=== PATIENT | female | born 1970 | race Caucasian/White ===

== ENCOUNTER 2017-01-22 19:44 | Inpatient (IN) | payer OTHER ==
[~2017-01-22] VITALS: Ht 165.1 cm; Wt 146.5 kg
[~2017-01-22 19:44] MED LIST: ALBU2.5I NEB; HEPARIN SODIUM - SQ 10,000 UNITS/ML VIAL SQ SCH; MACR100C PO; MOTR200T PO; OMEP20CA5 PO; PROM25TA5 PO; [UNRECOGNIZED DRUG - CODE] PO
[2017-01-22 19:47] VITALS: BP 123/79; PULSE 102; RESP 20; TEMP 98.2; O2SAT 96
[2017-01-22 20:00] VITALS: BP 152/98; PULSE 99; RESP 22; O2SAT 98
[2017-01-22] MEDS ORDERED: SODIUM CHLOR 0.9% 1000 ML INJ 1,000 ML IV SCH (20:04)
[2017-01-22] MEDS ORDERED: PRIL20TA2 PO (20:05)
[2017-01-22] MEDS ORDERED: METF1000 PO (20:05)
[2017-01-22] MEDS ORDERED: METR250 PO (20:07)
[2017-01-22] MEDS ORDERED: CIPR250T52 PO (20:07)
[2017-01-22] MEDS ORDERED: advil PO (20:08)
[2017-01-22] MEDS ORDERED: HYDROmorphone HCL PF 1 MG/ML VIAL IV PUSH ONE (20:15)
[2017-01-22] MEDS ORDERED: ONDANSETRON HCL 4 MG/2 ML VIAL IVP ONE (20:15)
[2017-01-22] MEDS ORDERED: MORPHINE SULFATE 4 MG/ML INJ IV PUSH ONE (20:15)
[2017-01-22] MEDS ORDERED: SODIUM CHLORIDE 0.9% FLUSH 10 ML FLUSH IV FLUSH PRN ×2 (20:15→23:45)
--- NOTE | 2017-01-22 20:16 | PD ---
HPI Chief Complaint: Abdominal Pain Time Seen by Provider: 20:04 Travel History International Travel<30 days: No Contact w/Intl Traveler<30days: No Traveled to known affect area: No History of Present Illness HPI 46-year-old female with PMH of DM presents to the ED for evaluation of 1 week history of left lower quadrant abdominal pain, nausea, vomiting, loose stools. The patient was seen by her primary care Dr. Wilkinson, and diagnosed with diverticulitis. She's been compliant with Cipro and Flagyl with worsening of her symptoms. She states that when she saw Dr. Wilkinson 3 days ago her white count had risen but she was feeling better. She today she endorses history of fevers which brought her to the emergency room. She denies chest pain, shortness of breath, dysuria, back pain. PFSH Past Medical History Anemia: Yes Blood Disorders: No Cancer: No Diabetes: Yes (dmII) Patient Takes Glucophage: Yes Diminished Hearing: No Diverticulitis: Yes (recently diag) Endocrine: No Gastrointestinal Disorders: Yes GERD: Yes Genitourinary: Yes Hypertension: Yes Immune Disorder: No Kidney Stones: Yes Musculoskeletal: No Neurologic: No Psychiatric: No Reproductive: No Respiratory: No Tetanus Vaccination: > 5 Years Influenza Vaccination: No ?: Not : 2 Para: 2 Past Surgical History Abdominal Surgery: Yes (GALLBLADDER REMOVED) AICD: No Cardiac Surgery: No Cholecystectomy: Yes (03/31) Genitourinary Surgery: Yes ([facility] [facility]) Pacemaker: No Thoracic Surgery: No Tonsillectomy: Yes Social History Alcohol Use: Yes (OCCASSIONALLY) Tobacco Use: Yes (1/2PACK A WEEK) Substance Use: No Allergies-Medications (Allergen,Severity, Reaction): Coded Allergies: No Known Allergies (Verified Allergy, Severe, 09/28/15) Reported Meds & Prescriptions Reported Meds & Active Scripts Active Reported [advil] 800 Mg PO BID Flagyl (Metronidazole) 250 Mg Tab 500 Mg PO TID Cipro (Ciprofloxacin HCl) 250 Mg Tab 500 Mg PO BID Prilosec (Omeprazole Magnesium) 20 Mg Tab 20 Mg PO DAILY Metformin (Metformin HCl) 1,000 Mg Tab 1,000 Mg PO BID With a meal Review of Systems Except as stated in HPI: all other systems reviewed are Neg Physical Exam Narrative GENERAL: Obese white female in no acute distress. SKIN: Focused skin assessment warm/dry. HEAD: Normocephalic. EYES: No scleral icterus. No injection or drainage. NECK: Supple, trachea midline. No JVD or lymphadenopathy. CARDIOVASCULAR: Regular rate and rhythm without murmurs, gallops, or rubs. RESPIRATORY: Breath sounds clear and equal bilaterally. No accessory muscle use. GASTROINTESTINAL: Abdomen protuberant, tender to palpation in the left lower quadrant and left flank. Hypoactive bowel sounds. No palpable masses. MUSCULOSKELETAL: No cyanosis, or edema. BACK: Nontender without obvious deformity. + Left-sided CVA tenderness. Data Data Last Documented VS Vital Signs Date Time Temp Pulse Resp B/P (MAP) Pulse Ox O2 Delivery O2 Flow Rate FiO2 01/22/17 20:09 Room Air 01/22/17 20:00 99 22 98 01/22/17 19:47 98.2 Orders Orders Complete Blood Count With Diff (01/22/17 20:04) Comprehensive Metabolic Panel (01/22/17 20:04) Lipase (01/22/17 20:04) Lactic Acid (01/22/17 20:04) Urinalysis - C+S If Indicated (01/22/17 20:04) Ct Abd/Pel W Iv Contrast(Rout) (01/22/17 20:04) Iv Access Insert/Monitor (01/22/17 20:04) Ecg Monitoring (01/22/17 20:04) Oximetry (01/22/17 20:04) Ondansetron Inj (Zofran Inj) (01/22/17 20:15) Sodium Chlor 0.9% 1000 Ml Inj (Ns 1000 M (01/22/17 20:04) Sodium Chloride 0.9% Flush (Ns Flush) (01/22/17 20:15) Hydromorphone Pf Inj (Dilaudid Pf Inj) (01/22/17 20:15) Iohexol 350 Inj (Omnipaque 350 Inj) (01/22/17 20:38) Urine Culture (01/22/17 20:26) Piperacil-Tazo 4.5 Gm Premix (Zosyn 4.5 (01/22/17 20:55) Sodium Chlor 0.9% 1000 Ml Inj (Ns 1000 M (01/22/17 21:15) Consult Urology (01/22/17 ) Blood Culture (01/22/17 21:29) (Hub Use Only)Inp Phy Cons/Ref (01/22/17 ) Admit Order (Ed Use Only) (01/22/17 21:38) Labs Laboratory Tests Test 01/22/17 20:26 White Blood Count 19.0 TH/MM3 Red Blood Count 3.50 MIL/MM3 Hemoglobin 10.9 GM/DL Hematocrit 34.0 % Mean Corpuscular Volume 96.9 FL Mean Corpuscular Hemoglobin 31.0 PG Mean Corpuscular Hemoglobin Concent 32.0 % Red Cell Distribution Width 15.0 % Platelet Count 553 TH/MM3 Mean Platelet Volume 7.8 FL Neutrophils (%) (Auto) 78.6 % Lymphocytes (%) (Auto) 12.5 % Monocytes (%) (Auto) 6.9 % Eosinophils (%) (Auto) 1.8 % Basophils (%) (Auto) 0.2 % Neutrophils # (Auto) 14.9 TH/MM3 Lymphocytes # (Auto) 2.4 TH/MM3 Monocytes # (Auto) 1.3 TH/MM3 Eosinophils # (Auto) 0.3 TH/MM3 Basophils # (Auto) 0.0 TH/MM3 CBC Comment AUTO DIFF Differential Total Cells Counted 100 Neutrophils % (Manual) 81 % Band Neutrophils % 4 % Lymphocytes % 10 % Monocytes % 4 % Eosinophils % 1 % Neutrophils # (Manual) 16.2 TH/MM3 Differential Comment FINAL DIFF MANUAL Toxic Granulation 1+ Toxic Vacuolation PRESENT Platelet Estimate HIGH Platelet Morphology Comment NORMAL Urine Color YELLOW Urine Turbidity HAZY Urine pH 6.5 Urine Specific [place] 1.013 Urine Protein NEG mg/dL Urine Glucose (UA) NEG mg/dL Urine Ketones 10 mg/dL Urine Occult Blood MOD Urine Nitrite NEG Urine Bilirubin NEG Urine Urobilinogen LESS THAN 2.0 MG/DL Urine Leukocyte Esterase LARGE Urine RBC 8 /hpf Urine WBC 102 /hpf Urine Squamous Epithelial Cells 1 /hpf Urine Amorphous Sediment RARE Urine Bacteria RARE /hpf Microscopic Urinalysis Comment CULTURE INDICATED Blood Urea Nitrogen 4 MG/DL Creatinine 1.04 MG/DL Random Glucose 105 MG/DL Total Protein 8.0 GM/DL Albumin 2.3 GM/DL Calcium Level 8.6 MG/DL Alkaline Phosphatase 95 U/L Aspartate Amino Transf (AST/SGOT) 46 U/L Alanine Aminotransferase (ALT/SGPT) 15 U/L Total Bilirubin 0.3 MG/DL Sodium Level 133 MEQ/L Potassium Level 4.7 MEQ/L Chloride Level 100 MEQ/L Carbon Dioxide Level 23.6 MEQ/L Anion Gap 9 MEQ/L Estimat Glomerular Filtration Rate 57 ML/MIN Lactic Acid Level 1.3 mmol/L Lipase 108 U/L MDM Medical Decision Making Medical Screen Exam Complete: Yes Emergency Medical Condition: Yes Differential Diagnosis Pyelonephritis versus peritonitis versus diverticulitis versus intra-abdominal abscess versus free air versus other Narrative Course 46-year-old female with PMH of DM presents to the ED for evaluation of 1 week history of left lower quadrant abdominal pain, nausea, vomiting, loose stools. The patient was seen by her primary care Dr. Wilkinson, and diagnosed with diverticulitis. She's been compliant with Cipro and Flagyl with worsening of her symptoms. She complains of fever today. Vitals reviewed. Patient's tachycardic on presentation. Physical exam reveals an obese white female in no acute distress. She is quite uncomfortable looking and tender to palpation in the left lower quadrant as well as the left flank and positive left CVA tenderness. IV was established. Patient is administered 1 g Dilaudid, 4 mg Zofran, 1 L normal saline IV. CBC: WBC 1900 left shift. CMP: BUN 4, creatinine 1.04. Lactic acid 1.3. UA: Large leukocyte Estrace, 1 or 2 WBCs, rare bacteria. Culture pending. CT of the abdomen and pelvis: Staghorn calculus measuring 4.4x 1.9 cm. I discussed case with Dr. Stuart, on-call urologist who states he will see the patient on an outpatient basis for percutaneous nephrostomy. She meets sepsis criteria will be admitted to the medicine service. Patient is agreeable with this plan. I spoke with Dr. Wen who agrees to accept the patient. Please see medicine notes for disposition. Sepsis Criteria SIRS Criteria (2 or more): Heart rate over 90, WBC > 36958, < 4000 or > 10% bands Sepsis Criteria (SIRS+source): Infect source susp/known Criteria Outcome: Meets sepsis criteria Kelsea Martines Jan 22, 2017 20:16
[2017-01-22] MEDS ORDERED: IOHEXOL 350 MG/ML 10 ML VIAL (for RAD DIAG) IVCONTRAST ONE (20:38)
[2017-01-22 20:40] LABS: AUTOMATED NEUTROPHIL # 14.9 TH/MM3 (1.8-7.7); BASOPHIL % 0.2 % (0.0-2.0); EOSINOPHIL # 0.3 TH/MM3 (0-0.4); EOSINOPHIL % 1.8 % (0.0-4.0); HEMOGLOBIN 10.9 GM/DL (11.6-15.3); LYMPH % 12.5 % (9.0-44.0); LYMPHOCYTE # 2.4 TH/MM3 (1.0-4.8); MEAN CELL VOLUME 96.9 FL (80.0-100.0); MEAN PLATELET VOLUME 7.8 FL (7.0-11.0); MONO % 6.9 % (0.0-8.0); MONOCYTE # 1.3 TH/MM3 (0-0.9); NEUT % 78.6 % (16.0-70.0); PLATELET COUNT 553 TH/MM3 (150-450)
[2017-01-22 20:42] LABS: AMORPHOUS SEDIMENT, URINE RARE; BACTERIA, URINE RARE /hpf; BILIRUBIN, URINE NEG (NEG); BLOOD, URINE MOD (NEG); GLUCOSE,URINE NEG (NEG); KETONE, URINE 10 mg/dL (NEG); NITRITE,URINE NEG (NEG); PH, URINE 6.5 (5.0-8.5); SQUAMOUS EPITHELIAL CELL URINE 1 /hpf (0-5); URINE COLOR YELLOW (YELLW/STRAW); URINE LEUKOCYTE ESTERASE LARGE (NEG)
--- NOTE | 2017-01-22 20:54 | RADRPT ---
EXAM DATE/TIME: 01/22/2017 20:28 [facility] COMPARISON: No previous studies available for comparison. INDICATIONS : Left abdominal pain. IV CONTRAST: 96 cc Omnipaque 350 (iohexol) IV ORAL CONTRAST: No oral contrast ingested. RADIATION DOSE: 20.85 CTDIvol (mGy) MEDICAL HISTORY : Hypertension. Diverticulitis. Gastroesophageal reflux disease.Renal calculi; Diabetes type 2 SURGICAL HISTORY : Cholecystectomy. ENCOUNTER: Initial ACUITY: 3 days PAIN SCALE: 8/10 LOCATION: Left abdominal. TECHNIQUE: Volumetric scanning of the abdomen and pelvis was performed. Using automated exposure control and ad justment of the mA and/or kV according to patient size, radiation dose was kept as low as reasonably achievable to obtain optimal diagnostic quality images. DICOM format image data is available electro nically for review and comparison. FINDINGS: LOWER LUNGS: The visualized lower lungs are clear. LIVER: Homogeneous density without lesion. There is no dilation of the biliary tree. Status post cholecyste ctomy. There is mild hepatic steatosis. SPLEEN: Normal size without lesion. PANCREAS: Within normal limits. KIDNEYS: The right kidney is unremarkable. There is an adjacent simple cysts. The left kidney is enlarged with surrounding inflammatory change. There is a large area of calcification in the central collecting sy stem which appears staghorn in measures up to 4.4 x 1.9 cm. This extends into several calyces. There is moderate hydronephrosis. The ureter below this point is nondilated. ADRENAL GLANDS: Within normal limits. VASCULAR: There is no aortic aneurysm. BOWEL/MESENTERY: The stomach, small bowel, and colon demonstrate no acute abnormality. There is no free intraperitone al air or fluid. ABDOMINAL WALL: Within normal limits. RETROPERITONEUM: There is no lymphadenopathy. BLADDER: No wall thickening or mass. REPRODUCTIVE: Within normal limits. INGUINAL: There is no lymphadenopathy or hernia. MUSCULOSKELETAL: Within normal limits for patient age. CONCLUSION: 1. Staghorn calculus in the left renal collecting system with mild to moderate hydronephrosis and josiah rounding inflammatory change. The kidney is mildly enlarged. 2. Hepatic steatosis. 3. Status post cholecystectomy. Kyle Davenport MD on January 22, 2017 at 20:46 Board Certified Radiologist. This report was verified electronically.
[2017-01-22] MEDS ORDERED: PIPERACIL-TAZO 4.5 GM PREMIX 100 ML IV STA (20:55)
[2017-01-22 21:12] LABS: ALT (GPT) 15 U/L (10-53)
[2017-01-22 21:15] LABS: ALKALINE PHOSPHATASE 95 U/L (45-117); TOTAL BILIRUBIN ADULT 0.3 MG/DL (0.2-1.0)
[2017-01-22] MEDS ORDERED: SODIUM CHLOR 0.9% 1000 ML INJ 1,000 ML IV ONE (21:15)
[2017-01-22 21:17] LABS: ALBUMIN 2.3 GM/DL (3.4-5.0); AST (GOT) 46 U/L (15-37); BICARBONATE 23.6 MEQ/L (21.0-32.0); BLOOD UREA NITROGEN 4 MG/DL (7-18); CALCIUM 8.6 MG/DL (8.5-10.1); CHLORIDE 100 MEQ/L (98-107); CREATININE 1.04 MG/DL (0.50-1.00); GLOMERULAR FILTRATION RATE 57 ML/MIN (>89); GLUCOSE,RANDOM 105 MG/DL (74-106); LIPASE 108 U/L (73-393); SODIUM (NA) 133 MEQ/L (136-145)
[2017-01-22 21:25] LABS: BANDS 4 % (0-6); LYMPHOCYTES 10 % (9-44); MONOCYTES 4 % (0-8); NEUTROPHIL # MANUAL DIFF 16.2 TH/MM3 (1.8-7.7); POLYS (SEG NEUTROPHILS) 81 % (16-70)
[2017-01-22 21:26] LABS: TOXIC GRANULATION 1+ (NORMAL); TOXIC VACUOLATION PRESENT (NONE SEEN)
[2017-01-22] MEDS: HYDROmorphone HCL PF 1 MG/ML VIAL IV PUSH PRN (23:34)
[2017-01-22] MEDS ORDERED: ONDANSETRON HCL 4 MG/2 ML VIAL IVP PRN (23:45)
[2017-01-22] MEDS ORDERED: MAGNESIUM HYDROXIDE SUSP 30 ML CUP PO PRN (23:45)
[2017-01-22] MEDS ORDERED: ACETAMINOPHEN 325 MG TAB PO PRN (23:45)
[2017-01-22] MEDS ORDERED: SENNOSIDES 8.6 MG TAB PO PRN (23:45)
[2017-01-22] MEDS ORDERED: BISACODYL 10 MG SUPP RECTAL PRN (23:45)
[2017-01-22] MEDS ORDERED: LACTULOSE SYRUP 20 GM/30 ML CUP PO PRN (23:45)
[2017-01-22] MEDS ORDERED: NALOXONE HCL 0.4 MG/ML AMP IV PUSH PRN (23:45)
[2017-01-23] MEDS ORDERED: DEXTROSE 50% IN WATER 50 ML VIAL(D50) IV PUSH PRN
[2017-01-23] MEDS ORDERED: GLUCAGON 1 MG/ML VIAL OTHER PRN
--- NOTE | 2017-01-23 00:01 | HHI.HP ---
[facility] Eduard Su, DO Admission Diagnosis urosepsis, left staghorn calculus Diagnoses: Travel History International Travel<30 Days: No Contact w/Intl Traveler <30 Da: No Traveled to Known Affected Are: No Sepsis Criteria SIRS Criteria (2 or more): Heart rate over 90, WBC > 96476, < 4000 or > 10% bands History of Present Illness 46-year-old female with past medical history significant for type 2 diabetes mellitus presents to the emergency department with a two-week history of left sided abdominal pain. Ago, the patient was seen by her PCP and diagnosed with acute diverticulitis, prescribed Cipro/Flagyl. Her pain continued to worsen and she presented to the emergency department this afternoon with intractable left-sided abdominal and flank pain. UA significant for moderate blood, large leukocyte esterase and white blood cells. White blood cell count was 19 and the patient was tachycardic. CT of the abdomen and pelvis showed a staghorn calculus in the left renal collecting system with mild to moderate hydronephrosis and surrounding inflammatory change. The patient does have a history of kidney stones although her last one was approximately 10 years ago and she is status post lithotripsy. She denies fever/chills or other systemic symptoms. Review of Systems Denies fever or chills Denies blurry vision, otorrhea, rhinorrhea Denies sore throat and cough No chest pain, palpitations, shortness of breath Left-sided abdominal pain with left-sided flank pain Denies constipation/diarrhea. Endorses nausea. Denies muscle pain/weakness No rashes Past Family Social History Past Medical History Type 2 diabetes mellitus Iron deficiency anemia History of kidney stones 10 years ago Past Surgical History Cholecystectomy Uterine ablation Reported Medications Reported Meds & Active Scripts Active Reported [advil] 800 Mg PO BID Flagyl (Metronidazole) 250 Mg Tab 500 Mg PO TID Cipro (Ciprofloxacin HCl) 250 Mg Tab 500 Mg PO BID Prilosec (Omeprazole Magnesium) 20 Mg Tab 20 Mg PO DAILY Metformin (Metformin HCl) 1,000 Mg Tab 1,000 Mg PO BID With a meal Allergies: Coded Allergies: No Known Allergies (Verified Allergy, Severe, 09/28/15) Family History Mother with type 2 diabetes mellitus. Father alive and healthy. Social History Occasional alcohol. Tobacco very rarely. Denies marijuana or illicit drugs. Physical Exam Vital Signs Vital Signs Date Time Temp Pulse Resp B/P (MAP) Pulse Ox O2 Delivery O2 Flow Rate FiO2 01/22/17 20:09 Room Air 01/22/17 20:00 99 22 152/98 (116) 98 Room Air 01/22/17 19:47 98.2 102 20 123/79 (94) 96 Room Air Physical Exam GENERAL: This is a well-nourished, well-developed patient, in moderate distress. SKIN: No rashes, ecchymoses or lesions. Cool and dry. HEAD: Atraumatic. Normocephalic. No temporal or scalp tenderness. EYES: Pupils equal round and reactive. Extraocular motions intact. No scleral icterus. No injection or drainage. ENT: Nose without bleeding, purulent drainage or septal hematoma. Throat without erythema, tonsillar hypertrophy or exudate. Uvula midline. Airway patent. NECK: Trachea midline. No JVD or lymphadenopathy. Supple, nontender, no meningeal signs. CARDIOVASCULAR: Regular rate and rhythm without murmurs, gallops, or rubs. RESPIRATORY: Clear to auscultation. Breath sounds equal bilaterally. No wheezes , rales, or rhonchi. GASTROINTESTINAL: Abdomen soft, tender to palpation on the left side. No peritoneal signs. Left sided flank pain positive for CVA tenderness. MUSCULOSKELETAL: Extremities without clubbing, cyanosis, or edema. No joint tenderness, effusion, or edema noted. No calf tenderness. Negative Homans sign bilaterally. NEUROLOGICAL: Awake and alert. Cranial nerves II through XII intact. Motor and sensory grossly within normal limits. Five out of 5 muscle strength in all muscle groups. Normal speech. Laboratory Laboratory Tests Test 01/22/17 20:26 White Blood Count 19.0 Red Blood Count 3.50 Hemoglobin 10.9 Hematocrit 34.0 Mean Corpuscular Volume 96.9 Mean Corpuscular Hemoglobin 31.0 Mean Corpuscular Hemoglobin Concent 32.0 Red Cell Distribution Width 15.0 Platelet Count 553 Mean Platelet Volume 7.8 Neutrophils (%) (Auto) 78.6 Lymphocytes (%) (Auto) 12.5 Monocytes (%) (Auto) 6.9 Eosinophils (%) (Auto) 1.8 Basophils (%) (Auto) 0.2 Neutrophils # (Auto) 14.9 Lymphocytes # (Auto) 2.4 Monocytes # (Auto) 1.3 Eosinophils # (Auto) 0.3 Basophils # (Auto) 0.0 CBC Comment AUTO DIFF Differential Total Cells Counted 100 Neutrophils % (Manual) 81 Band Neutrophils % 4 Lymphocytes % 10 Monocytes % 4 Eosinophils % 1 Neutrophils # (Manual) 16.2 Differential Comment FINAL DIFF MANUAL Toxic Granulation 1+ Toxic Vacuolation PRESENT Platelet Estimate HIGH Platelet Morphology Comment NORMAL Urine Color YELLOW Urine Turbidity HAZY Urine pH 6.5 Urine Specific [place] 1.013 Urine Protein NEG Urine Glucose (UA) NEG Urine Ketones 10 Urine Occult Blood MOD Urine Nitrite NEG Urine Bilirubin NEG Urine Urobilinogen LESS THAN 2.0 Urine Leukocyte Esterase LARGE Urine RBC 8 Urine WBC 102 Urine Squamous Epithelial Cells 1 Urine Amorphous Sediment RARE Urine Bacteria RARE Microscopic Urinalysis Comment CULTURE INDICATED Blood Urea Nitrogen 4 Creatinine 1.04 Random Glucose 105 Total Protein 8.0 Albumin 2.3 Calcium Level 8.6 Alkaline Phosphatase 95 Aspartate Amino Transf (AST/SGOT) 46 Alanine Aminotransferase (ALT/SGPT) 15 Total Bilirubin 0.3 Sodium Level 133 Potassium Level 4.7 Chloride Level 100 Carbon Dioxide Level 23.6 Anion Gap 9 Estimat Glomerular Filtration Rate 57 Lactic Acid Level 1.3 Lipase 108 Date/Time Source Procedure Growth Status 01/22/17 21:51 Blood Line Aerobic Blood Culture Pending Received 01/22/17 21:51 Blood Line Anaerobic Blood Culture Pending Received 01/22/17 20:26 Urine Random Urine Urine Culture Pending Worksheet Result Diagram: 01/22/17202501/22/172025 Caprini VTE Risk Assessment Caprini VTE Risk Assessment: No/Low Risk (score <= 1) Caprini Risk Assessment Model Point Value = 1 Point Value = 2 Point Value = 3 Point Value = 5 Age 41-60 Minor surgery BMI > 25 kg/m2 Swollen legs Varicose veins or History of unexplained or recurrent spontaneous Oral contraceptives or hormone replacement Sepsis (< 1 month) Serious lung disease, including pneumonia (< 1 month) Abnormal pulmonary function Acute myocardial infarction Congestive heart failure (< 1 month) History of inflammatory bowel disease Medical patient at bed rest Age 61-74 Arthroscopic surgery Major open surgery (> 45 min) Laparoscopic surgery (> 45 min) Malignancy Confined to bed (> 72 hours) Immobilizing plaster cast Central venous access Age >= 75 History of VTE Family history of VTE Factor V Leiden Prothrombin [id number] Lupus anticoagulant Anticardiolipin antibodies Elevated serum homocysteine Heparin-induced thrombocytopenia Other congenital or acquired thrombophilia Stroke (< 1 month) Elective arthroplasty Hip, pelvis, or leg fracture Acute spinal cord injury (< 1 month) Prophylaxis Regimen Total Risk Factor Score Risk Level Prophylaxis Regimen 0-1 Low Early ambulation 2 Moderate Order ONE of the following: *Sequential Compression Device (SCD) *Heparin 5000 units SQ BID 3-4 Higher Order ONE of the following medications: *Heparin 5000 units SQ TID *Enoxaparin/Lovenox 40 mg SQ daily (WT < 150 kg, CrCl > 30 mL/min) *Enoxaparin/Lovenox 30 mg SQ daily (WT < 150 kg, CrCl > 10-29 mL/min) *Enoxaparin/Lovenox 30 mg SQ BID (WT < 150 kg, CrCl > 30 mL/min) AND/OR *Sequential Compression Device (SCD) 5 or more Highest Order ONE of the following medications: *Heparin 5000 units SQ TID (Preferred with Epidurals) *Enoxaparin/Lovenox 40 mg SQ daily (WT < 150 kg, CrCl > 30 mL/min) *Enoxaparin/Lovenox 30 mg SQ daily (WT < 150 kg, CrCl > 10-29 mL/min) *Enoxaparin/Lovenox 30 mg SQ BID (WT < 150 kg, CrCl > 30 mL/min) AND *Sequential Compression Device (SCD) Assessment and Plan Assessment and Plan 46-year-old female with type 2 diabetes mellitus presents with staghorn calculus in left renal collecting system and associated leukocytosis and UTI. 1. Staghorn calculus CT showed hydronephrosis Urology consulted, Dr. Cordova will perform outpatient percutaneous nephrostomy 2. Urinary tract infection associated with renal stone Patient with leukocytosis and tachycardia Zosyn 3.375 every 6 hours Monitor for signs of septic shock IV fluids normal saline 100 cc/hour 3. Type 2 diabetes mellitus Holding home metformin Low-dose sliding scale insulin FEN Diabetic diet Electrolytes within normal limits; continue to monitor Fluids as above SCDs Physician Certification 2 Midnight Certification Type: Admission for Inpatient Services Order for Inpatient Services The services are ordered in accordance with Medicare regulations or non- Medicare payer requirements, as applicable. In the case of services not specified as inpatient-only, they are appropriately provided as inpatient services in accordance with the 2-midnight benchmark. Estimated LOS (days): 2 2 days is the estimated time the patient will need to remain in the hospital, assuming treatment plan goals are met and no additional complications. Post-Hospital Plan: Home Zoraida Wen MD Jan 23, 2017 00:01
[2017-01-23 00:45] VITALS: BP 135/75; PULSE 89; RESP 18; TEMP 100.2; O2SAT 98
[2017-01-23] MEDS: HYDROmorphone HCL PF 1 MG/ML VIAL IV PUSH PRN ×5 (03:18→17:48)
[2017-01-23] MEDS: PIPERACIL-TAZO 3.375 GM PREMIX 50 ML IV SCH ×4 (03:21→21:07)
[2017-01-23 08:00] VITALS: BP 122/71; PULSE 84; RESP 19; TEMP 99.4; O2SAT 95
[2017-01-23] MEDS: INSULIN ASPART SUPPLEMENTAL SCALE SQ SCH ×4 (08:31→20:13)
[2017-01-23] MEDS: PANTOPRAZOLE SOD 20 MG DELAYED RELEASE TAB PO SCH (08:33)
[2017-01-23] MEDS: SODIUM CHLORIDE 0.9% FLUSH 10 ML FLUSH IV FLUSH SCH ×2 (08:33→20:14)
[2017-01-23] MEDS: DOCUSATE SODIUM 50 MG/SENNA 8.6 MG TAB PO SCH ×2 (08:33→20:14)
[2017-01-23 09:40] LABS: BASOPHIL # 0.1 TH/MM3 (0-0.2); BASOPHIL % 0.4 % (0.0-2.0); EOSINOPHIL # 0.3 TH/MM3 (0-0.4); EOSINOPHIL % 1.9 % (0.0-4.0); HEMATOCRIT 31.1 % (35.0-46.0); HEMOGLOBIN 9.8 GM/DL (11.6-15.3); LYMPH % 16.1 % (9.0-44.0); LYMPHOCYTE # 2.4 TH/MM3 (1.0-4.8); MEAN CELL VOLUME 96.9 FL (80.0-100.0); MEAN CORPUSCULAR HEMOGLOBIN 30.5 PG (27.0-34.0); MEAN CORPUSCULAR HGB CONC 31.5 % (32.0-36.0); MEAN PLATELET VOLUME 7.7 FL (7.0-11.0); MONO % 8.1 % (0.0-8.0); MONOCYTE # 1.2 TH/MM3 (0-0.9); NEUT % 73.5 % (16.0-70.0); PLATELET COUNT 508 TH/MM3 (150-450); RED BLOOD COUNT 3.21 MIL/MM3 (4.00-5.30); RED CELL DISTRIBUTION WIDTH 15.7 % (11.6-17.2)
[2017-01-23] MEDS: SODIUM CHLOR 0.9% 1000 ML INJ 1,000 ML IV SCH ×3 (10:00→20:15)
[2017-01-23 11:23] LABS: BICARBONATE 22.7 MEQ/L (21.0-32.0); CALCIUM 7.9 MG/DL (8.5-10.1); CREATININE 0.92 MG/DL (0.50-1.00)
--- NOTE | 2017-01-23 11:41 | HHI.PR ---
Subjective Remarks Patient is having persistent left flank pain. Dilaudid is helping but is not lasting for hours. No dysuria or hematuria. Objective Vitals Vital Signs Date Time Temp Pulse Resp B/P (MAP) Pulse Ox O2 Delivery O2 Flow Rate FiO2 01/23/17 08:00 99.4 84 19 122/71 (88) 95 01/23/17 00:45 100.2 89 18 135/75 (95) 98 01/22/17 20:09 Room Air 01/22/17 20:00 99 22 152/98 (116) 98 Room Air 01/22/17 19:47 98.2 102 20 123/79 (94) 96 Room Air I/O 01/22/17 01/22/17 01/22/17 01/23/17 01/23/17 01/23/17 07:00 15:00 23:00 07:00 15:00 23:00 Intake Total 2100 ml 220 ml Balance 2100 ml 220 ml Intake Oral 220 ml IV Total 2100 ml # Voids 2 Result Diagram: 01/23/1789901/23/17 09 Imaging Last Impressions Abdomen/Pelvis CT 01/22/172003 Signed Impressions: Service Date/Time: Sunday, January 22, 2017 20:28 - CONCLUSION: 1. Staghorn calculus in the left renal collecting system with mild to moderate hydronephrosis and surrounding inflammatory change. The kidney is mildly enlarged. 2. Hepatic steatosis. 3. Status post cholecystectomy. Kyle Davenport MD Objective Remarks GENERAL: Obese female in some discomfort. CARDIOVASCULAR: Normal rate and regular rhythm without murmurs, gallops, or rubs. RESPIRATORY: Good respiratory efforts. Breath sounds equal and clear to auscultation bilaterally. GASTROINTESTINAL: Abdomen soft, obese, tender to deep palpation over the left quadrant. Some CVA tenderness. MUSCULOSKELETAL: Extremities without cyanosis, or edema. NEURO: Alert & Oriented x4 to person, place, time, situation. Moves all ext x4 PSYCH: Appropriate mood and affect. A/P Assessment and Plan 46-year-old female with type 2 diabetes mellitus presents with staghorn calculus in left renal collecting system and associated leukocytosis and UTI. 1. Staghorn calculus CT showed hydronephrosis Urology consulted, Dr. Cordova Pain control. Decrease Dilaudid to every 3 hours. Continue IV fluid 2. Urinary tract infection associated with renal stone Patient with leukocytosis and tachycardia Zosyn 3.375 every 6 hours Monitor for signs of septic shock IV fluids normal saline 100 cc/hour Follow urine cultures 3. Type 2 diabetes mellitus Holding home metformin Low-dose sliding scale insulin FEN Diabetic diet Electrolytes within normal limits; continue to monitor Fluids as above Tanvi Post MD Jan 23, 2017 11:41
[2017-01-23 12:00] VITALS: BP 124/68; PULSE 78; RESP 19; TEMP 99; O2SAT 95
[2017-01-23 16:00] VITALS: BP 124/68; PULSE 84; RESP 18; TEMP 98.6; O2SAT 96
--- NOTE | 2017-01-23 17:02 | PD.CONS ---
HPI Service Urology Consult Requested By SHARRON Choudhury Reason for Consult Left renal calculus Primary Care Physician Eduard Su DO Diagnosis: History of Present Illness 46-year-old female with history nephrolithiasis approximately 10 years ago treated with shockwave lithotripsy who presented to the emergency room with a two-week history of left sided abdominal pain. Patient apparently was initially diagnosed with diverticulitis and treated with antibiotics however her pain continued to worsen as she presented to the emergency room for further evaluation. Workup in the emergency room included a CT scan of the abdomen and pelvis that demonstrated a large staghorn calculus involving the left kidney with mild to moderate hydronephrosis and perinephric inflammatory changes. She also was noted to have a low-grade temperature and elevation in the white blood cell count. Urinalysis demonstrated the presence of a large amount of white blood cells and was leukocyte esterase positive. She was admitted for further management with intravenous antibiotics, analgesic support and a urology consultation. At the time of consultation the patient reports that she was continuing to experience significant left flank pain. I reviewed the actual CT scan images and concur with the radiologist impression. Review of Systems Constitutional: COMPLAINS OF: Fever Cardiovascular: DENIES: Chest pain Gastrointestinal: COMPLAINS OF: Abdominal pain Musculoskeletal: COMPLAINS OF: Back pain (left flank) Except as stated in HPI: all other systems reviewed are Neg Past Family Social History Past Medical History Diabetes mellitus Nephrolithiasis Anemia Past Surgical History Status post cholecystectomy Status post shockwave lithotripsy Status post uterine ablation procedure Reported Medications Refer to EMR Allergies: Coded Allergies: No Known Allergies (Verified Allergy, Severe, 09/28/15) Active Ordered Medications Refer to EMR Family History Mother with history diabetes mellitus Social History Rare tobacco use Occasional alcohol use Denies illicit drug use Physical Exam Vital Signs Date Time Temp Pulse Resp B/P (MAP) Pulse Ox O2 Delivery O2 Flow Rate FiO2 01/23/17 16:00 98.6 84 18 124/68 (86) 96 01/23/17 12:00 99.0 78 19 124/68 (86) 95 01/23/17 08:00 99.4 84 19 122/71 (88) 95 01/23/17 00:45 100.2 89 18 135/75 (95) 98 01/22/17 20:09 Room Air 01/22/17 20:00 99 22 152/98 (116) 98 Room Air 01/22/17 19:47 98.2 102 20 123/79 (94) 96 Room Air Physical Exam GENERAL: This is a well-nourished, well-developed patient, in no apparent distress. SKIN: No rashes, ecchymoses or lesions. Cool and dry. HEAD: Atraumatic. Normocephalic. No temporal or scalp tenderness. EYES: Pupils equal round and reactive. Extraocular motions intact. No scleral icterus. No injection or drainage. ENT: Nose without bleeding, purulent drainage or septal hematoma. Throat without erythema, tonsillar hypertrophy or exudate. Uvula midline. Airway patent. NECK: Trachea midline. No JVD or lymphadenopathy. Supple, nontender, no meningeal signs. CARDIOVASCULAR: Regular rate and rhythm without murmurs, gallops, or rubs. RESPIRATORY: Clear to auscultation. Breath sounds equal bilaterally. No wheezes , rales, or rhonchi. GASTROINTESTINAL: Abdomen soft, non-tender, nondistended. No hepato-splenomegaly , or palpable masses. No guarding. GENITOURINARY: Moderate left CVA tenderness MUSCULOSKELETAL: Extremities without clubbing, cyanosis, or edema. No joint tenderness, effusion, or edema noted. No calf tenderness. Negative Homans sign bilaterally. NEUROLOGICAL: Awake and alert. Cranial nerves II through XII intact. Motor and sensory grossly within normal limits. Five out of 5 muscle strength in all muscle groups. Normal speech. Lab results reviewed: Yes Laboratory Tests Test 01/22/17 20:26 01/23/17 09:00 White Blood Count 19.0 15.0 Red Blood Count 3.50 3.21 Hemoglobin 10.9 9.8 Hematocrit 34.0 31.1 Mean Corpuscular Volume 96.9 96.9 Mean Corpuscular Hemoglobin 31.0 30.5 Mean Corpuscular Hemoglobin Concent 32.0 31.5 Red Cell Distribution Width 15.0 15.7 Platelet Count 553 508 Mean Platelet Volume 7.8 7.7 Neutrophils (%) (Auto) 78.6 73.5 Lymphocytes (%) (Auto) 12.5 16.1 Monocytes (%) (Auto) 6.9 8.1 Eosinophils (%) (Auto) 1.8 1.9 Basophils (%) (Auto) 0.2 0.4 Neutrophils # (Auto) 14.9 11.0 Lymphocytes # (Auto) 2.4 2.4 Monocytes # (Auto) 1.3 1.2 Eosinophils # (Auto) 0.3 0.3 Basophils # (Auto) 0.0 0.1 CBC Comment AUTO DIFF DIFF FINAL Differential Total Cells Counted 100 Neutrophils % (Manual) 81 Band Neutrophils % 4 Lymphocytes % 10 Monocytes % 4 Eosinophils % 1 Neutrophils # (Manual) 16.2 Differential Comment FINAL DIFF MANUAL Toxic Granulation 1+ Toxic Vacuolation PRESENT Platelet Estimate HIGH Platelet Morphology Comment NORMAL Urine Color YELLOW Urine Turbidity HAZY Urine pH 6.5 Urine Specific [place] 1.013 Urine Protein NEG Urine Glucose (UA) NEG Urine Ketones 10 Urine Occult Blood MOD Urine Nitrite NEG Urine Bilirubin NEG Urine Urobilinogen LESS THAN 2.0 Urine Leukocyte Esterase LARGE Urine RBC 8 Urine WBC 102 Urine Squamous Epithelial Cells 1 Urine Amorphous Sediment RARE Urine Bacteria RARE Microscopic Urinalysis Comment CULTURE INDICATED Blood Urea Nitrogen 4 3 Creatinine 1.04 0.92 Random Glucose 105 96 Total Protein 8.0 Albumin 2.3 Calcium Level 8.6 7.9 Alkaline Phosphatase 95 Aspartate Amino Transf (AST/SGOT) 46 Alanine Aminotransferase (ALT/SGPT) 15 Total Bilirubin 0.3 Sodium Level 133 137 Potassium Level 4.7 3.9 Chloride Level 100 103 Carbon Dioxide Level 23.6 22.7 Anion Gap 9 11 Estimat Glomerular Filtration Rate 57 66 Lactic Acid Level 1.3 Lipase 108 Date/Time Source Procedure Growth Status 01/22/17 21:51 Blood Line Aerobic Blood Culture - Preliminary NO GROWTH IN 1 DAY Resulted 01/22/17 21:51 Blood Line Anaerobic Blood Culture - Preliminary NO GROWTH IN 1 DAY Resulted 01/22/17 20:26 Urine Random Urine Urine Culture - Preliminary IMMATURE GROWTH - REINCUBATE Resulted Result Diagram: 01/23/17 0900 01/23/17 0900 Personally reviewed images: Yes Imaging Last Impressions Abdomen/Pelvis CT 01/22/172003 Signed Impressions: Service Date/Time: Sunday, January 22, 2017 20:28 - CONCLUSION: 1. Staghorn calculus in the left renal collecting system with mild to moderate hydronephrosis and surrounding inflammatory change. The kidney is mildly enlarged. 2. Hepatic steatosis. 3. Status post cholecystectomy. Kyle Davenport MD Assessment and Plan Assessment and Plan Urologic impression: #1 left staghorn renal calculus #2 left hydronephrosis secondary to staghorn calculus #3 urinary tract infection related to above Recommendations: #1 agree with present antibiotic therapy #2 interventional radiology consult for placement of left nephrostomy tube #3 will eventually require left percutaneous nephrolithotomy after urinary tract infection appropriately treated Edd Cordova MD Jan 23, 2017 17:02
[2017-01-23 20:00] VITALS: BP 133/88; PULSE 71; RESP 26; TEMP 99.3; O2SAT 97
[2017-01-23] MEDS: oxyCODONE/ACETAMINOPHEN 5 MG/325 MG TAB PO PRN (21:57)
[2017-01-24] VITALS (7 sets, daily range): BP systolic 113–127; BP diastolic 57–77; PULSE 72–94; RESP 15–22; TEMP 97.3–100; O2SAT 93–97
[2017-01-24] MEDS: HYDROmorphone HCL PF 1 MG/ML VIAL IV PUSH PRN ×3 (00:17→15:49)
[2017-01-24] MEDS: oxyCODONE/ACETAMINOPHEN 5 MG/325 MG TAB PO PRN ×5 (03:30→22:35)
[2017-01-24] MEDS: PIPERACIL-TAZO 3.375 GM PREMIX 50 ML IV SCH ×4 (03:31→21:00)
[2017-01-24 05:31] LABS: HEMATOCRIT 27.6 % (35.0-46.0); HEMOGLOBIN 8.8 GM/DL (11.6-15.3); MEAN CELL VOLUME 96.8 FL (80.0-100.0); MEAN CORPUSCULAR HEMOGLOBIN 30.9 PG (27.0-34.0); MEAN CORPUSCULAR HGB CONC 31.9 % (32.0-36.0); MEAN PLATELET VOLUME 7.8 FL (7.0-11.0); PLATELET COUNT 471 TH/MM3 (150-450); RED BLOOD COUNT 2.85 MIL/MM3 (4.00-5.30); RED CELL DISTRIBUTION WIDTH 15.7 % (11.6-17.2); WHITE BLOOD COUNT 13.1 TH/MM3 (4.0-11.0)
[2017-01-24] MEDS: SODIUM CHLOR 0.9% 1000 ML INJ 1,000 ML IV SCH ×2 (05:34→13:54)
[2017-01-24 05:51] LABS: BICARBONATE 26.3 MEQ/L (21.0-32.0); CALCIUM 7.7 MG/DL (8.5-10.1); CREATININE 0.84 MG/DL (0.50-1.00)
[2017-01-24] MEDS: INSULIN ASPART SUPPLEMENTAL SCALE SQ SCH ×4 (08:00→21:00)
[2017-01-24] MEDS: PANTOPRAZOLE SOD 20 MG DELAYED RELEASE TAB PO SCH (08:35)
[2017-01-24] MEDS: DOCUSATE SODIUM 50 MG/SENNA 8.6 MG TAB PO SCH (08:36)
[2017-01-24] MEDS: SODIUM CHLORIDE 0.9% FLUSH 10 ML FLUSH IV FLUSH SCH ×2 (08:36→21:00)
--- NOTE | 2017-01-24 10:14 | HHI.PR ---
Subjective Patient symptoms today Discussed patient with Dr. Gilman of interventional radiology. Patient has been taking ibuprofen recently however it is medically necessary to have the nephroureteral tube placed as the patient has a clinical picture of pyelonephritis from the staghorn calculus. The benefits far outweigh the risks of placing the nephroureteral tube at this time. Once the patient's infection has resolved I plan on proceeding with a percutaneous nephrolithotomy. Objective Vital Signs Vital Signs Date Time Temp Pulse Resp B/P (MAP) Pulse Ox O2 Delivery O2 Flow Rate FiO2 01/24/17 08:00 99.1 87 19 127/57 (80) 97 01/24/17 04:37 18 01/24/17 00:55 20 01/24/17 00:00 100.0 76 22 123/67 (85) 93 01/23/17 20:00 99.3 71 26 133/88 (103) 97 01/23/17 16:00 98.6 84 18 124/68 (86) 96 01/23/17 12:00 99.0 78 19 124/68 (86) 95 Intake & Output 01/24/17 01/24/17 07:00 19:00 Intake Total 240 ml Balance 240 ml Intake Oral 240 ml # Voids 5 # Bowel Movements 0 Result Diagram: 01/24/17 0455 01/24/17 0455 Medications and IVs Current Medications Medications (Trade) Dose Ordered Sig/Camilla Route Start Time Stop Time Status Last Admin (NS Flush) 2 ml UNSCH PRN IV FLUSH 01/22/17 20:15 (Dilaudid Pf Inj) 1 mg Q4H PRN IV PUSH 01/22/17 23:30 01/24/17 00:17 Sodium Chloride 1,000 ml @ 100 mls/hr Q10H IV 01/23/17 00:00 01/23/17 20:15 (NS Flush) 2 ml UNSCH PRN IV FLUSH 01/22/17 23:45 (NS Flush) 2 ml BID IV FLUSH 01/23/17 09:00 (Tylenol) 650 mg Q4H PRN PO 01/22/17 23:45 (Zofran Inj) 4 mg Q6H PRN IVP 01/22/17 23:45 (Narcan Inj) 0.4 mg UNSCH PRN IV PUSH 01/22/17 23:45 (Milk Of Magnesia Liq) 30 ml Q12H PRN PO 01/22/17 23:45 (Senokot) 17.2 mg Q12H PRN PO 01/22/17 23:45 (Dulcolax Supp) 10 mg DAILY PRN RECTAL 01/22/17 23:45 (Lactulose Liq) 30 ml DAILY PRN PO 01/22/17 23:45 Piperacillin Sod/ Tazobactam Sod 50 ml @ 100 mls/hr Q6H IV 01/23/17 03:00 01/24/17 08:36 (Protonix) 20 mg DAILY PO 01/23/17 09:00 01/24/17 08:35 (D50w (Vial) Inj) 50 ml UNSCH PRN IV PUSH 01/23/17 00:00 (Glucagon Inj) 1 mg UNSCH PRN OTHER 01/23/17 00:00 (NovoLOG SUPPLEMENTAL SCALE) 1 ACHS SLIDING SCALE SQ 01/23/17 08:00 (Percocet 5-325 Mg) 1 tab Q4H PRN PO 01/23/17 21:30 01/24/17 08:35 Assessment and Plan Assessment and Plan Urologic impression: #1 left staghorn renal calculus #2 left hydronephrosis secondary to staghorn calculus #3 urinary tract infection related to above Recommendations: #1 agree with present antibiotic therapy #2 interventional radiology consult for placement of left nephrostomy tube #3 will eventually require left percutaneous nephrolithotomy after urinary tract infection appropriately treated Edd Cordova MD Jan 24, 2017 10:14
[2017-01-24] MEDS ORDERED: MIDAZOLAM HCL 5 MG/5 ML VIAL ONE (11:05)
[2017-01-24 11:23] LABS: INTERNATIONAL NORMALIZED RATIO 1.2 RATIO; PROTHROMBIN TIME - PATIENT 13.7 SEC (9.8-11.6)
[2017-01-24] MEDS ORDERED: LEVOFLOXACIN 500 MG PREMIX INJ 100 ML IV ONE (11:51)
[2017-01-24] MEDS ORDERED: MIDAZOLAM HCL 2 MG/2 ML VIAL ONE (11:52)
[2017-01-24] MEDS ORDERED: HYDROmorphone HCL PF 2 MG/ML VIAL ONE (11:59)
[2017-01-24] MEDS ORDERED: IOHEXOL 350 MG/ML 50 ML BTL (for RAD DIAG) OTHER ONE (12:47)
--- NOTE | 2017-01-24 14:26 | HHI.PR ---
Subjective Remarks Patient reports abdominal pain. Not out of bed yet. S/P nephrostomy tube by IR on the left. Objective Vitals Vital Signs Date Time Temp Pulse Resp B/P (MAP) Pulse Ox O2 Delivery O2 Flow Rate FiO2 01/24/17 13:00 72 16 115/72 (86) 96 01/24/17 12:40 98.1 86 19 119/77 (91) 97 01/24/17 10:44 82 16 124/63 (83) 93 01/24/17 08:00 99.1 87 19 127/57 (80) 97 01/24/17 04:37 18 01/24/17 00:55 20 01/24/17 00:00 100.0 76 22 123/67 (85) 93 01/23/17 20:00 99.3 71 26 133/88 (103) 97 01/23/17 16:00 98.6 84 18 124/68 (86) 96 I/O 01/23/17 01/23/17 01/23/17 01/24/17 01/24/17 01/24/17 07:00 15:00 23:00 07:00 15:00 23:00 Intake Total 220 ml 600 ml 240 ml 100 ml Balance 220 ml 600 ml 240 ml 100 ml Intake Oral 220 ml 600 ml 240 ml IV Total 100 ml # Voids 2 6 5 # Bowel Movements 3 0 Result Diagram: 01/24/17 0455 01/24/17 0455 Objective Remarks GENERAL: Obese female in some discomfort. CARDIOVASCULAR: Normal rate and regular rhythm without murmurs, gallops, or rubs. RESPIRATORY: Good respiratory efforts. Breath sounds equal and clear to auscultation bilaterally. GASTROINTESTINAL: Abdomen soft, obese, tender to deep palpation over the left quadrant. Some CVA tenderness. Left nephrostomy tube in place. MUSCULOSKELETAL: Extremities without cyanosis, or edema. NEURO: Alert & Oriented x4 to person, place, time, situation. Moves all ext x4 PSYCH: Appropriate mood and affect. A/P Assessment and Plan 46-year-old female with type 2 diabetes mellitus presents with staghorn calculus in left renal collecting system and associated leukocytosis and UTI. 1. Staghorn calculus CT showed hydronephrosis Urology following, Dr. Cordova. S/P Nephrostomy tube placement today. DW Dr. Scaglia. He plans for left percutaneous nephrolithotomy in about 10 days. Pain control. Start Percocet. Dilaudid for breakthrough. Continue IV fluid 2. Urinary tract infection associated with renal stone Patient with leukocytosis and tachycardia Zosyn 3.375 every 6 hours Monitor for signs of septic shock IV fluids normal saline 100 cc/hour Follow urine cultures 3. Type 2 diabetes mellitus Holding home metformin Low-dose sliding scale insulin FEN Diabetic diet Electrolytes within normal limits; continue to monitor Fluids as above SCDs Discharge Planning Plan to DC tomorrow if pain is controlled on oral medications. Tanvi Lawrence MD Jan 24, 2017 14:26
[2017-01-24] MEDS ORDERED: LORazepam 0.5 MG TAB PO PRN (14:30)
[2017-01-25] VITALS: BP 118/65; PULSE 94; RESP 17; TEMP 99; O2SAT 92
[2017-01-25] MEDS: HYDROmorphone HCL PF 1 MG/ML VIAL IV PUSH PRN ×6 (00:25→21:33)
[2017-01-25] MEDS: SODIUM CHLOR 0.9% 1000 ML INJ 1,000 ML IV SCH ×3 (02:00→22:55)
[2017-01-25] MEDS: oxyCODONE/ACETAMINOPHEN 5 MG/325 MG TAB PO PRN ×5 (02:37→20:06)
[2017-01-25 04:00] VITALS: BP 113/58; PULSE 89; RESP 16; TEMP 99.5; O2SAT 92
[2017-01-25] MEDS: PIPERACIL-TAZO 3.375 GM PREMIX 50 ML IV SCH ×4 (04:42→20:02)
[2017-01-25 08:00] VITALS: BP 123/63; PULSE 90; RESP 20; TEMP 98.6; O2SAT 95
[2017-01-25] MEDS: INSULIN ASPART SUPPLEMENTAL SCALE SQ SCH ×4 (08:00→21:00)
[2017-01-25] MEDS: SODIUM CHLORIDE 0.9% FLUSH 10 ML FLUSH IV FLUSH SCH ×2 (08:42→21:00)
[2017-01-25] MEDS: PANTOPRAZOLE SOD 20 MG DELAYED RELEASE TAB PO SCH (08:43)
[2017-01-25] MEDS ORDERED: PNEUMOCOCCAL POLYVALENT INJ 25 MCG/0.5 ML SYR IM ONE (10:00)
[2017-01-25] MEDS ORDERED: INFLUENZA VIRUS VACCINE (QUADRIVALENT) 0.5 ML SYR IM ONE (10:00)
[2017-01-25 10:04] LABS: HEMATOCRIT 29.8 % (35.0-46.0); HEMOGLOBIN 9.3 GM/DL (11.6-15.3); MEAN CELL VOLUME 97.2 FL (80.0-100.0); MEAN CORPUSCULAR HEMOGLOBIN 30.4 PG (27.0-34.0); MEAN CORPUSCULAR HGB CONC 31.3 % (32.0-36.0); MEAN PLATELET VOLUME 7.6 FL (7.0-11.0); PLATELET COUNT 511 TH/MM3 (150-450); RED BLOOD COUNT 3.07 MIL/MM3 (4.00-5.30); RED CELL DISTRIBUTION WIDTH 15.3 % (11.6-17.2); WHITE BLOOD COUNT 21.4 TH/MM3 (4.0-11.0)
[2017-01-25 10:38] LABS: BICARBONATE 22.7 MEQ/L (21.0-32.0); CREATININE 0.83 MG/DL (0.50-1.00)
--- NOTE | 2017-01-25 11:40 | HHI.PR ---
Subjective Remarks Discussed with RN. Patient is having plenty of output from the nephrostomy tube. However she is not been able to urinate. She reports the urge to urinate but is only having drops. Objective Vitals Vital Signs Date Time Temp Pulse Resp B/P (MAP) Pulse Ox O2 Delivery O2 Flow Rate FiO2 01/25/17 08:00 98.6 90 20 123/63 (83) 95 01/25/17 04:00 99.5 89 16 113/58 (76) 92 01/25/17 03:37 18 01/25/17 00:55 18 01/25/17 00:00 99.0 94 17 118/65 (82) 92 01/24/17 20:00 99.2 94 17 114/63 (80) 93 01/24/17 16:00 97.3 75 15 113/69 (84) 97 01/24/17 13:00 72 16 115/72 (86) 96 01/24/17 12:40 98.1 86 19 119/77 (91) 97 I/O 01/24/17 01/24/17 01/24/17 01/25/17 01/25/17 01/25/17 07:00 15:00 23:00 07:00 15:00 23:00 Intake Total 240 ml 150 ml 60 ml 360 ml Output Total 560 ml 310 ml 150 ml Balance 240 ml 150 ml -500 ml 50 ml -150 ml Intake Oral 240 ml 60 ml 360 ml IV Total 150 ml Output Drainage Total 560 ml 310 ml 150 ml Bladder Scan Volume Amount 71 ml # Voids 5 3 0 # Bowel Movements 0 0 Result Diagram: 01/25/1735 01/25/17934 Objective Remarks GENERAL: Obese female in some discomfort. CARDIOVASCULAR: Normal rate and regular rhythm without murmurs, gallops, or rubs. RESPIRATORY: Good respiratory efforts. Breath sounds equal and clear to auscultation bilaterally. GASTROINTESTINAL: Abdomen soft, obese, tender to deep palpation over the left quadrant. Some CVA tenderness. Left nephrostomy tube in place. MUSCULOSKELETAL: Extremities without cyanosis, or edema. NEURO: Alert & Oriented x4 to person, place, time, situation. Moves all ext x4 PSYCH: Appropriate mood and affect. A/P Assessment and Plan 46-year-old female with type 2 diabetes mellitus presents with staghorn calculus in left renal collecting system and associated leukocytosis and UTI. 1. Staghorn calculus CT showed hydronephrosis Urology following, Dr. Cordova. S/P Nephrostomy tube placement today. He plans for left percutaneous nephrolithotomy in about 10 days. Overnight, the patient has not been able to urinate. Urostomy output is adequate. Urology has been made aware and a Reynoso catheter has been ordered. - Obtain renal and bladder ultrasound. Pain control. Percocet. Dilaudid for breakthrough. Continue IV fluid Monitor output. 2. Urinary tract infection associated with renal stone Patient with leukocytosis and tachycardia Zosyn 3.375 every 6 hours Monitor for signs of septic shock IV fluids normal saline 100 cc/hour Urine cultures with probable contaminate. However leukocytosis is persisting. Leukocytosis could be reactive. We'll continue IV antibiotics for another day and reassess tomorrow. 3. Type 2 diabetes mellitus Holding home metformin Low-dose sliding scale insulin FEN Diabetic diet Electrolytes within normal limits; continue to monitor Fluids as above SCDs Discharge Planning Pending clinical improvement Tanvi Lawrence MD Jan 25, 2017 11:39
[2017-01-25 12:00] VITALS: BP 117/66; PULSE 88; RESP 16; TEMP 98.8; O2SAT 92
--- NOTE | 2017-01-25 15:45 | RADRPT ---
EXAM DATE/TIME: 01/25/2017 14:54 [facility] COMPARISON: No previous studies available for comparison. INDICATIONS : Bladder retention. MEDICAL HISTORY : Gastroesophageal reflux disease. Renal calculi. Hypertension. Diverticulitis. Diabetes, type 2. Anemi a. SURGICAL HISTORY : Tonsillectomy. Cholecystectomy. Renal stent. Left renal nephrostomy tube placement. ENCOUNTER: Initial ACUITY: 3 days PAIN SCORE: 6/10 LOCATION: Bilateral flank MEASUREMENTS: RIGHT KIDNEY: 13.0 x 6.4 x 7.8 cm LEFT KIDNEY: 13.9 x 8.5 x 9.2 cm FINDINGS: RIGHT KIDNEY: Renal cortex is normal in thickness and echotexture. No hydronephrosis, stone, or mass. LEFT KIDNEY: Renal cortex is normal in thickness and echotexture. No hydronephrosis, stone, or mass. Left nephros cristino tube present. BLADDER: Within normal limits given the degree of distension. CONCLUSION: No hydronephrosis or other acute abnormality demonstrated. Left percutaneous nephrostomy tube present . Nondistended urinary bladder. Juan Tamayo MD on January 25, 2017 at 15:41 Board Certified Radiologist. This report was verified electronically.
[2017-01-25 16:00] VITALS: BP 118/66; PULSE 83; RESP 18; TEMP 99.2; O2SAT 94
[2017-01-25] MEDS ORDERED: TAMSULOSIN HCL 0.4 MG CAP PO ONE (16:00)
[2017-01-25 20:00] VITALS: BP 123/58; PULSE 102; RESP 20; TEMP 101.7; O2SAT 92
[2017-01-25 23:19] LABS: BACTERIA, URINE RARE /hpf; BILIRUBIN, URINE NEG (NEG); BLOOD, URINE MOD (NEG); GLUCOSE,URINE NEG (NEG); KETONE, URINE 10 mg/dL (NEG); MUCUS URINE FEW /lpf (OCC); NITRITE,URINE NEG (NEG); PH, URINE 6.5 (5.0-8.5); SQUAMOUS EPITHELIAL CELL URINE 45 /hpf (0-5); URINE COLOR LIGHT-YELLOW (YELLW/STRAW); URINE LEUKOCYTE ESTERASE LARGE (NEG); WHITE BLOOD CELL CLUMPS FEW
[2017-01-26] MEDS: oxyCODONE/ACETAMINOPHEN 5 MG/325 MG TAB PO PRN ×6 (00:27→21:52)
[2017-01-26 00:54] VITALS: BP 120/77; PULSE 118; RESP 20; TEMP 97.7; O2SAT 94
[2017-01-26] MEDS: HYDROmorphone HCL PF 1 MG/ML VIAL IV PUSH PRN ×6 (01:25→23:53)
[2017-01-26] MEDS: PIPERACIL-TAZO 3.375 GM PREMIX 50 ML IV SCH ×4 (01:25→19:43)
[2017-01-26 03:04] LABS: HEMOGLOBIN 9.4 GM/DL (11.6-15.3); MEAN CELL VOLUME 97.3 FL (80.0-100.0); MEAN CORPUSCULAR HEMOGLOBIN 30.5 PG (27.0-34.0); MEAN CORPUSCULAR HGB CONC 31.4 % (32.0-36.0); MEAN PLATELET VOLUME 7.6 FL (7.0-11.0); PLATELET COUNT 552 TH/MM3 (150-450); RED BLOOD COUNT 3.08 MIL/MM3 (4.00-5.30); RED CELL DISTRIBUTION WIDTH 15.7 % (11.6-17.2); WHITE BLOOD COUNT 17.4 TH/MM3 (4.0-11.0)
[2017-01-26 03:17] LABS: BICARBONATE 25.3 MEQ/L (21.0-32.0); CALCIUM 8.1 MG/DL (8.5-10.1); CREATININE 0.89 MG/DL (0.50-1.00)
[2017-01-26 08:00] VITALS: BP 124/72; PULSE 88; RESP 18; TEMP 97.6; O2SAT 94
[2017-01-26] MEDS: INSULIN ASPART SUPPLEMENTAL SCALE SQ SCH ×4 (08:00→19:47)
[2017-01-26] MEDS: SODIUM CHLORIDE 0.9% FLUSH 10 ML FLUSH IV FLUSH SCH ×2 (08:57→19:45)
[2017-01-26] MEDS: PANTOPRAZOLE SOD 20 MG DELAYED RELEASE TAB PO SCH (08:57)
[2017-01-26 12:00] VITALS: BP 128/72; PULSE 93; RESP 18; TEMP 97.6; O2SAT 94
[2017-01-26] MEDS: TAMSULOSIN HCL 0.4 MG CAP PO SCH (12:42)
[2017-01-26] MEDS: SODIUM CHLOR 0.9% 1000 ML INJ 1,000 ML IV SCH ×3 (12:43→23:56)
--- NOTE | 2017-01-26 14:16 | HHI.PR ---
Subjective Remarks The patient reports she is still having some urgency. Reports yesterday she was having only a couple of drops of urine, today she is having some dribbling, slightly better. Still having flank pain. Temperature 101.7 last night. Objective Vitals Vital Signs Date Time Temp Pulse Resp B/P (MAP) Pulse Ox O2 Delivery O2 Flow Rate FiO2 01/26/17 12:00 97.6 93 18 128/72 (90) 94 01/26/17 08:00 97.6 88 18 124/72 (89) 94 01/26/17 00:54 97.7 118 20 120/77 (91) 94 01/25/17 20:00 101.7 102 20 123/58 (79) 92 01/25/17 16:00 99.2 83 18 118/66 (83) 94 I/O 01/25/17 01/25/17 01/25/17 01/26/17 01/26/17 01/26/17 07:00 15:00 23:00 07:00 15:00 23:00 Intake Total 360 ml 2800 ml 1000 ml Output Total 310 ml 150 ml 1375 ml 700 ml Balance 50 ml -150 ml 1425 ml 300 ml Intake Oral 360 ml 1800 ml IV Total 1000 ml 1000 ml Output Urine Total 30 ml 300 ml Drainage Total 310 ml 150 ml 1345 ml 400 ml Bladder Scan Volume Amount 71 ml 160 ml # Voids 0 1 # Bowel Movements 1 1 Result Diagram: 01/26/17 0240 01/26/17 0240 Objective Remarks GENERAL: Obese female in some discomfort. CARDIOVASCULAR: Normal rate and regular rhythm without murmurs, gallops, or rubs. RESPIRATORY: Good respiratory efforts. Breath sounds equal and clear to auscultation bilaterally. GASTROINTESTINAL: Abdomen soft, obese, tender to deep palpation over the left quadrant. Some CVA tenderness. Left nephrostomy tube in place. MUSCULOSKELETAL: Extremities without cyanosis, or edema. NEURO: Alert & Oriented x4 to person, place, time, situation. Moves all ext x4 PSYCH: Appropriate mood and affect. A/P Assessment and Plan In summary, this is a 46-year-old female with type 2 diabetes mellitus presents with staghorn calculus in left renal collecting system and associated leukocytosis and UTI. The patient is status post nephrostomy tube placement. She is overall improving. However she has been having issues with urgency,? urinary Retention. Urology is following. She has had marked leukocytosis. The first urinalysis was abnormal but urine culture was negative. She has a repeat urinalysis that is also abnormal, urine cultures pending. If the patient continues to improve and urology clear her after evaluation tomorrow, she may potentially go. Need to follow up on urine cultures and fever curve. 1. Staghorn calculus CT showed hydronephrosis Urology following, Dr. Cordova. S/P Nephrostomy tube placement today. He plans for left percutaneous nephrolithotomy in about 10 days. Overnight, the patient has not been able to urinate. Urostomy output is adequate. Urology has been made aware and a Reynoso catheter has been ordered. - Obtain renal and bladder ultrasound. Pain control. Percocet. Dilaudid for breakthrough. Continue IV fluid Monitor output. 2. Urinary tract infection associated with renal stone Patient with leukocytosis and tachycardia Zosyn 3.375 every 6 hours Monitor for signs of septic shock IV fluids normal saline 100 cc/hour Urine cultures with probable contaminate. Leukocytosis slightly improved. However repeat urinalysis is abnormal. Continue IV antibiotics and follow repeat urine cultures. 3. Type 2 diabetes mellitus Holding home metformin Low-dose sliding scale insulin FEN Diabetic diet Electrolytes within normal limits; continue to monitor Fluids as above SCDs Discharge Planning Pending clinical improvement Tanvi Lawrence MD Jan 26, 2017 14:16
[2017-01-26 16:00] VITALS: BP 125/70; PULSE 90; RESP 18; TEMP 97.8; O2SAT 92
[2017-01-26 20:00] VITALS: BP 122/66; PULSE 93; RESP 16; TEMP 99.3; O2SAT 92
[2017-01-27] VITALS: BP 119/75; PULSE 113; RESP 18; TEMP 100.6; O2SAT 94
[2017-01-27] MEDS: PIPERACIL-TAZO 3.375 GM PREMIX 50 ML IV SCH ×4 (01:58→21:42)
[2017-01-27] MEDS: oxyCODONE/ACETAMINOPHEN 5 MG/325 MG TAB PO PRN ×6 (01:58→23:53)
[2017-01-27] MEDS: HYDROmorphone HCL PF 1 MG/ML VIAL IV PUSH PRN ×5 (04:08→22:45)
[2017-01-27 08:00] VITALS: BP 124/71; PULSE 85; RESP 21; TEMP 97.4; O2SAT 96
[2017-01-27] MEDS: INSULIN ASPART SUPPLEMENTAL SCALE SQ SCH ×4 (08:00→21:00)
[2017-01-27] MEDS: TAMSULOSIN HCL 0.4 MG CAP PO SCH (08:18)
[2017-01-27] MEDS: PANTOPRAZOLE SOD 20 MG DELAYED RELEASE TAB PO SCH (08:18)
[2017-01-27] MEDS: SODIUM CHLORIDE 0.9% FLUSH 10 ML FLUSH IV FLUSH SCH ×2 (08:19→19:43)
[2017-01-27 09:09] LABS: HEMATOCRIT 22.1 % (35.0-46.0); HEMOGLOBIN 7.1 GM/DL (11.6-15.3); MEAN CORPUSCULAR HEMOGLOBIN 30.7 PG (27.0-34.0); MEAN PLATELET VOLUME 7.1 FL (7.0-11.0); PLATELET COUNT 436 TH/MM3 (150-450); RED CELL DISTRIBUTION WIDTH 15.6 % (11.6-17.2); WHITE BLOOD COUNT 11.2 TH/MM3 (4.0-11.0)
--- NOTE | 2017-01-27 10:38 | HHI.PR ---
Subjective Patient symptoms today Continues to have low-grade temps. Continues complain of left flank pain and feels she is not ready to go home yet. Objective Vital Signs Vital Signs Date Time Temp Pulse Resp B/P (MAP) Pulse Ox O2 Delivery O2 Flow Rate FiO2 01/27/17 08:00 97.4 85 21 124/71 (88) 96 01/27/17 00:00 100.6 113 18 119/75 (90) 94 01/26/17 20:00 99.3 93 16 122/66 (84) 92 01/26/17 16:00 97.8 90 18 125/70 (88) 92 01/26/17 12:00 97.6 93 18 128/72 (90) 94 Intake & Output 01/27/17 01/27/17 07:00 19:00 Intake Total 2934 ml Output Total 850 ml Balance 2084 ml IV Total 2934 ml Drainage Total 850 ml # Voids 4 # Bowel Movements 2 Result Diagram: 01/27/17 0835 01/26/17 0240 Objective Remarks Left nephrostomy tube draining clear yellow urine with a small amount of sediment. No evidence of hematuria. Medications and IVs Current Medications Medications (Trade) Dose Ordered Sig/Camilla Route Start Time Stop Time Status Last Admin (NS Flush) 2 ml UNSCH PRN IV FLUSH 01/22/17 20:15 (Dilaudid Pf Inj) 1 mg Q4H PRN IV PUSH 01/22/17 23:30 01/27/17 08:15 Sodium Chloride 1,000 ml @ 100 mls/hr Q10H IV 01/23/17 00:00 01/26/17 23:56 (NS Flush) 2 ml UNSCH PRN IV FLUSH 01/22/17 23:45 (NS Flush) 2 ml BID IV FLUSH 01/23/17 09:00 01/27/17 08:19 (Tylenol) 650 mg Q4H PRN PO 01/22/17 23:45 01/25/17 21:27 (Zofran Inj) 4 mg Q6H PRN IVP 01/22/17 23:45 01/25/17 04:52 (Narcan Inj) 0.4 mg UNSCH PRN IV PUSH 01/22/17 23:45 (Milk Of Magnesia Liq) 30 ml Q12H PRN PO 01/22/17 23:45 (Senokot) 17.2 mg Q12H PRN PO 01/22/17 23:45 (Dulcolax Supp) 10 mg DAILY PRN RECTAL 01/22/17 23:45 (Lactulose Liq) 30 ml DAILY PRN PO 01/22/17 23:45 Piperacillin Sod/ Tazobactam Sod 50 ml @ 100 mls/hr Q6H IV 01/23/17 03:00 01/27/17 08:18 (Protonix) 20 mg DAILY PO 01/23/17 09:00 01/27/17 08:18 (D50w (Vial) Inj) 50 ml UNSCH PRN IV PUSH 01/23/17 00:00 (Glucagon Inj) 1 mg UNSCH PRN OTHER 01/23/17 00:00 (NovoLOG SUPPLEMENTAL SCALE) 1 ACHS SLIDING SCALE SQ 01/23/17 08:00 (Percocet 5-325 Mg) 1 tab Q4H PRN PO 01/23/17 21:30 01/27/17 06:08 (Ativan) 0.5 mg Q6H PRN PO 01/24/17 14:30 01/24/17 15:51 (Flomax) 0.4 mg DAILY PO 01/26/17 12:00 01/27/17 08:18 Assessment and Plan Assessment and Plan Urologic impression: #1 left staghorn renal calculus #2 left hydronephrosis secondary to staghorn calculus status post decompression with placement of nephroureteral tube. #3 urinary tract infection related staghorn renal calculus Recommendations: #1 continue with antibiotic therapy #2 consider discharge home when vitals and lab stable and pain adequately controlled with oral meds. Expect some degree of pain from the nephroureteral tube to be ongoing. #3 will eventually require left percutaneous nephrolithotomy after urinary tract infection appropriately treated probably within the next 7-10 days. Edd Cordova MD Jan 27, 2017 10:37
--- NOTE | 2017-01-27 11:06 | HHI.PR ---
Subjective Remarks STILL COMPLAINING OF LEFT SIDE FLANK PAIN HAD FEVERS LAST NIGHT STILL NOT CONTROLLED ON CURRENT PAIN MEDS, TAKING DILAUDID AND PERCOCETS WILL ADD MUSCLE RELAXERS DW RN AND PT AND CM. Increase Percocet to 5/325 2 TABS Q4H Objective Vitals Vital Signs Date Time Temp Pulse Resp B/P (MAP) Pulse Ox O2 Delivery O2 Flow Rate FiO2 01/27/17 08:00 97.4 85 21 124/71 (88) 96 01/27/17 00:00 100.6 113 18 119/75 (90) 94 01/26/17 20:00 99.3 93 16 122/66 (84) 92 01/26/17 16:00 97.8 90 18 125/70 (88) 92 01/26/17 12:00 97.6 93 18 128/72 (90) 94 I/O 01/26/17 01/26/17 01/26/17 01/27/17 01/27/17 01/27/17 07:00 15:00 23:00 07:00 15:00 23:00 Intake Total 1000 ml 1550 ml 1934 ml Output Total 700 ml 2225 ml 550 ml Balance 300 ml -675 ml 1384 ml Intake Oral 550 ml IV Total 1000 ml 1000 ml 1934 ml Output Urine Total 300 ml 975 ml Drainage Total 400 ml 1250 ml 550 ml # Voids 1 3 # Bowel Movements 1 1 2 Result Diagram: 01/27/17 0835 01/26/17 0240 Other Results Laboratory Tests Test 01/25/17 09:35 01/25/17 22:40 01/26/17 02:40 01/27/17 08:35 White Blood Count 21.4 TH/MM3 17.4 TH/MM3 11.2 TH/MM3 Red Blood Count 3.07 MIL/MM3 3.08 MIL/MM3 2.30 MIL/MM3 Hemoglobin 9.3 GM/DL 9.4 GM/DL 7.1 GM/DL Hematocrit 29.8 % 30.0 % 22.1 % Mean Corpuscular Volume 97.2 FL 97.3 FL 96.0 FL Mean Corpuscular Hemoglobin 30.4 PG 30.5 PG 30.7 PG Mean Corpuscular Hemoglobin Concent 31.3 % 31.4 % 32.0 % Red Cell Distribution Width 15.3 % 15.7 % 15.6 % Platelet Count 511 TH/MM3 552 TH/MM3 436 TH/MM3 Mean Platelet Volume 7.6 FL 7.6 FL 7.1 FL Blood Urea Nitrogen 3 MG/DL 2 MG/DL Creatinine 0.83 MG/DL 0.89 MG/DL Random Glucose 109 MG/DL 101 MG/DL Calcium Level 8.0 MG/DL 8.1 MG/DL Sodium Level 135 MEQ/L 137 MEQ/L Potassium Level 4.0 MEQ/L 4.1 MEQ/L Chloride Level 103 MEQ/L 104 MEQ/L Carbon Dioxide Level 22.7 MEQ/L 25.3 MEQ/L Anion Gap 9 MEQ/L 8 MEQ/L Estimat Glomerular Filtration Rate 74 ML/MIN 69 ML/MIN Urine Color LIGHT-YELLOW Urine Turbidity HAZY Urine pH 6.5 Urine Specific [place] 1.011 Urine Protein 30 mg/dL Urine Glucose (UA) NEG mg/dL Urine Ketones 10 mg/dL Urine Occult Blood MOD Urine Nitrite NEG Urine Bilirubin NEG Urine Urobilinogen LESS THAN 2.0 MG/DL Urine Leukocyte Esterase LARGE Urine RBC 20 /hpf Urine WBC 89 /hpf Urine WBC Clumps FEW Urine Squamous Epithelial Cells 45 /hpf Urine Bacteria RARE /hpf Urine Mucus FEW /lpf Urine Yeast (Budding) FEW Microscopic Urinalysis Comment CULTURE INDICATED Imaging Last Impressions Renal Ultrasound 01/25/17 1418 Signed Impressions: Service Date/Time: Wednesday, January 25, 2017 14:54 - CONCLUSION: No hydronephrosis or other acute abnormality demonstrated. Left percutaneous nephrostomy tube present. Nondistended urinary bladder. Juan Tamayo MD Abdomen/Pelvis CT 01/22/172003 Signed Impressions: Service Date/Time: Sunday, January 22, 2017 20:28 - CONCLUSION: 1. Staghorn calculus in the left renal collecting system with mild to moderate hydronephrosis and surrounding inflammatory change. The kidney is mildly enlarged. 2. Hepatic steatosis. 3. Status post cholecystectomy. Kyle Davenport MD Objective Remarks GENERAL: Awake alert and oriented talkative and cooperative SKIN: Warm and dry. Nephrostomy tube on left side HEAD: Atraumatic. Normocephalic. EYES: Pupils equal and round. No scleral icterus. No injection or drainage. Extract muscles intact ENT: No nasal bleeding or discharge. Mucous membranes pink and moist. Tongue is midline NECK: Trachea midline. No JVD. Supple CARDIOVASCULAR: Regular rate and rhythm. S1 and S2 no S3 or S4 no heave or thrill or rub or gallop RESPIRATORY: No accessory muscle use. Clear to auscultation. Breath sounds equal bilaterally. GASTROINTESTINAL: Abdomen soft, non-tender, nondistended. Hepatic and splenic margins not palpable. Left-sided nephrostomy tube in place on her back MUSCULOSKELETAL: Extremities without clubbing, cyanosis, or edema. No obvious deformities. NEUROLOGICAL: Awake and alert. No obvious cranial nerve deficits. Motor grossly within normal limits. 4 out of 5 muscle strength in the arms and legs. Normal speech. PSYCHIATRIC: Appropriate mood and affect; insight and judgment normal. Procedures LEFT PERCUTANEOUS NEPHROSTOMY TUBE PLACED ON 11-3 Medications and IVs Current Medications Morphine Sulfate (Morphine Inj) 4 mg ONCE ONCE IV PUSH ; Start 01/22/17 at 20: 15; Stop 01/22/17 at 20:16; Status Cancel Ondansetron HCl (Zofran Inj) 4 mg ONCE ONCE IVP Last administered on 20:23; Start 01/22/17 at 20:15; Stop 01/22/17 at 20:16; Status DC Sodium Chloride 1,000 ml @ 1,000 mls/hr Q1H IV Last administered on 01/22/17 20:42; Start 01/22/17 at 20:04; Stop 01/22/17 at 21:03; Status DC Sodium Chloride (NS Flush) 2 ml UNSCH PRN IV FLUSH FLUSH AFTER USING IV ACCESS ; Start 01/22/17 at 20:15 Hydromorphone HCl (Dilaudid Pf Inj) 1 mg ONCE ONCE IV PUSH Last administered on 01/22/17 20:23; Start 01/22/17 at 20:15; Stop 01/22/17 at 20:16; Status DC Iohexol (Omnipaque 350 Inj) 96 ml STK-MED ONCE IVCONTRAST Last administered on 01/22/17 20:38; Start 01/22/17 at 20:38; Stop 01/22/17 at 20:39; Status DC Piperacillin Sod/ Tazobactam Sod 100 ml @ 200 mls/hr ONCE STAT IV Last administered on 01/22/17 21:20; Start 01/22/17 at 20:55; Stop 01/22/17 at 21:24 ; Status DC Sodium Chloride 1,000 ml @ 999 mls/hr BOLUS ONCE IV Last administered on 01/22 21:20; Start 01/22/17 at 21:15; Stop 01/22/17 at 22:15; Status DC Hydromorphone HCl (Dilaudid Pf Inj) 1 mg Q4H PRN IV PUSH BREAKTHROUGH PAIN Last administered on 01/27/17 08:15; Start 01/22/17 at 23:30 Sodium Chloride 1,000 ml @ 100 mls/hr Q10H IV Last administered on 01/26/17 23:56; Start 01/23/17 at 00:00 Sodium Chloride (NS Flush) 2 ml UNSCH PRN IV FLUSH FLUSH AFTER USING IV ACCESS ; Start 01/22/17 at 23:45 Sodium Chloride (NS Flush) 2 ml BID IV FLUSH Last administered on 01/27/17 08: 19; Start 01/23/17 at 09:00 Acetaminophen (Tylenol) 650 mg Q4H PRN PO TEMP > 100.4 Last administered on 21:27; Start 01/22/17 at 23:45 Ondansetron HCl (Zofran Inj) 4 mg Q6H PRN IVP NAUSEA OR VOMITING Last administered on 01/25/17 04:52; Start 01/22/17 at 23:45 Heparin Sodium (Porcine) (Heparin Inj) 5,000 units Q8H SQ ; Start 01/22/17 at 06 :00; Stop 01/23/17 at 00:03; Status DC Naloxone HCl (Narcan Inj) 0.4 mg UNSCH PRN IV PUSH SEE LABEL COMMENTS; Start 01/22/17 at 23:45 Senna/Docusate Sodium (Emma-Colace) 1 tab BID PO ; Start 01/23/17 at 09:00; Stop 01/24/17 at 09:49; Status DC Magnesium Hydroxide (Milk Of Magnesia Liq) 30 ml Q12H PRN PO Mild constipation ; Start 01/22/17 at 23:45 Sennosides (Senokot) 17.2 mg Q12H PRN PO Moderate constipation; Start 01/22/17 at 23:45 Bisacodyl (Dulcolax Supp) 10 mg DAILY PRN RECTAL SEVERE CONSITIPATION; Start 01/22/17 at 23:45 Lactulose (Lactulose Liq) 30 ml DAILY PRN PO SEVERE CONSITIPATION; Start at 23:45 Piperacillin Sod/ Tazobactam Sod 50 ml @ 100 mls/hr Q6H IV Last administered on 01/27/17 08:18; Start 01/23/17 at 03:00 Pantoprazole Sodium (Protonix) 20 mg DAILY PO Last administered on 01/27/17 08 :18; Start 01/23/17 at 09:00 Dextrose (D50w (Vial) Inj) 50 ml UNSCH PRN IV PUSH HYPOGLYCEMIA-SEE COMMENTS; Start 01/23/17 at 00:00 Glucagon (Glucagon Inj) 1 mg UNSCH PRN OTHER HYPOGLYCEMIA-SEE COMMENTS; Start 01/23/17 at 00:00 Insulin Aspart (NovoLOG SUPPLEMENTAL SCALE) 1 ACHS SLIDING SCALE SQ ; Start at 08:00 Oxycodone/ Acetaminophen (Percocet 5-325 Mg) 1 tab Q4H PRN PO pain > 4 Last administered on 01/27/17 10:45; Start 01/23/17 at 21:30 Midazolam HCl (Versed Inj) 5 mg STK-MED ONCE .ROUTE Last administered on 11:05; Start 01/24/17 at 11:05; Stop 01/24/17 at 11:06; Status DC Fentanyl Citrate (fentaNYL INJ) 200 mcg STK-MED ONCE .ROUTE Last administered on 01/24/17 11:05; Start 01/24/17 at 11:05; Stop 01/24/17 at 11:06; Status DC Levofloxacin/ Dextrose 100 ml @ As Directed STK-MED ONCE IV Last administered on 01/24/17 11:51; Start 01/24/17 at 11:51; Stop 01/24/17 at 11:52; Status DC Fentanyl Citrate (fentaNYL INJ) 100 mcg STK-MED ONCE .ROUTE Last administered on 01/24/17 11:52; Start 01/24/17 at 11:52; Stop 01/24/17 at 11:53; Status DC Midazolam HCl (Versed Inj) 2 mg STK-MED ONCE .ROUTE Last administered on 11:52; Start 01/24/17 at 11:52; Stop 01/24/17 at 11:53; Status DC Hydromorphone HCl (Dilaudid Pf Inj) 2 mg STK-MED ONCE .ROUTE Last administered on 01/24/17 11:59; Start 01/24/17 at 11:59; Stop 01/24/17 at 12:00; Status DC Iohexol (Omnipaque 350 Inj) 45 ml STK-MED ONCE OTHER Last administered on 12:47; Start 01/24/17 at 12:47; Stop 01/24/17 at 12:48; Status DC Lorazepam (Ativan) 0.5 mg Q6H PRN PO ANXIETY Last administered on 01/24/17 15: 51; Start 01/24/17 at 14:30 Pneumococcal Polyvalent Vaccine (Pneumovax-23 Inj) 25 mcg ONCE ONCE IM ; Start 01/25/17 at 10:00; Stop 01/25/17 at 10:01; Status DC Influenza Virus Vaccine (Flu (Quadrivalent) Vaccine Inj) 0.5 ml ONCE ONCE IM ; Start 01/25/17 at 10:00; Stop 01/25/17 at 10:01; Status DC Tamsulosin HCl (Flomax) 0.4 mg ONCE ONCE PO Last administered on 01/25/17 17: 15; Start 01/25/17 at 16:00; Stop 01/25/17 at 16:08; Status DC Tamsulosin HCl (Flomax) 0.4 mg DAILY PO Last administered on 01/27/17 08:18; Start 01/26/17 at 12:00 Vascular Central Line Catheter: No A/P Assessment and Plan In summary, this is a 46-year-old female with type 2 diabetes mellitus presents with staghorn calculus in left renal collecting system and associated leukocytosis and UTI. The patient is status post nephrostomy tube placement. She is overall improving. However she has been having issues with urgency,? urinary Retention. Urology is following. She has had marked leukocytosis. The first urinalysis was abnormal but urine culture was negative. She has a repeat urinalysis that is also abnormal, urine cultures pending. If the patient continues to improve and urology clear her after evaluation tomorrow, she may potentially go. Need to follow up on urine cultures and fever curve. 1. Staghorn calculus CT showed hydronephrosis Urology following, Dr. Cordova. S/P Nephrostomy tube placement today. He plans for left percutaneous nephrolithotomy in about 10 days. Overnight, the patient has not been able to urinate. Urostomy output is adequate. Urology has been made aware and a Reynoso catheter has been ordered. - Obtain renal and bladder ultrasound. Pain control. Percocet. Dilaudid for breakthrough. Continue IV fluid Monitor output. 2. Urinary tract infection associated with renal stone Patient with leukocytosis and tachycardia Zosyn 3.375 every 6 hours Monitor for signs of septic shock IV fluids normal saline 100 cc/hour Urine cultures with probable contaminate. Leukocytosis slightly improved. However repeat urinalysis is abnormal. Continue IV antibiotics and follow repeat urine cultures. 3. Type 2 diabetes mellitus Holding home metformin Low-dose sliding scale insulin Fevers continue pain control and antibiotics FEN Diabetic diet Electrolytes within normal limits; continue to monitor Fluids as above SCDs Discharge Planning Pending better pain control and no fevers Angel Story DO Jan 27, 2017 11:06
[2017-01-27] MEDS ORDERED: LACTULOSE SYRUP 20 GM/30 ML CUP PO PRN (11:15)
[2017-01-27] MEDS ORDERED: BISACODYL 10 MG SUPP RECTAL PRN (11:15)
[2017-01-27] MEDS ORDERED: SENNOSIDES 8.6 MG TAB PO PRN (11:15)
[2017-01-27] MEDS ORDERED: ACETAMINOPHEN 325 MG TAB PO PRN ×2 (11:15)
[2017-01-27] MEDS ORDERED: SODIUM CHLORIDE 0.9% FLUSH 10 ML FLUSH IV FLUSH PRN (11:15)
[2017-01-27] MEDS ORDERED: MAGNESIUM HYDROXIDE SUSP 30 ML CUP PO PRN (11:15)
[2017-01-27] MEDS: SODIUM CHLOR 0.9% 1000 ML INJ 1,000 ML IV SCH ×2 (11:42→23:49)
[2017-01-27 12:00] VITALS: BP 123/58; PULSE 87; RESP 20; TEMP 98.2; O2SAT 97
[2017-01-27] MEDS: METHOCARBAMOL 500 MG TAB PO SCH ×2 (13:02→19:43)
[2017-01-27 13:54] LABS: MAGNESIUM 1.8 MG/DL (1.5-2.5)
[2017-01-27 14:04] LABS: FREE T4 1.44 NG/DL (0.76-1.46); PHOSPHORUS 2.3 MG/DL (2.5-4.9)
[2017-01-27 16:00] VITALS: BP 133/74; PULSE 121; RESP 20; TEMP 98.3; O2SAT 91
[2017-01-27] MEDS: DOCUSATE SODIUM 50 MG/SENNA 8.6 MG TAB PO SCH (19:44)
[2017-01-27 20:00] VITALS: BP 119/65; PULSE 94; RESP 20; TEMP 99.6; O2SAT 93
[2017-01-27] MEDS ORDERED: SODIUM CHLORIDE 0.9% FLUSH 10 ML FLUSH IV FLUSH SCH (21:00)
[2017-01-28] VITALS: BP 121/65; PULSE 85; RESP 20; TEMP 97.6; O2SAT 96
[2017-01-28] MEDS: PIPERACIL-TAZO 3.375 GM PREMIX 50 ML IV SCH ×2 (03:08→08:38)
[2017-01-28] MEDS: HYDROmorphone HCL PF 1 MG/ML VIAL IV PUSH PRN ×3 (03:08→11:27)
[2017-01-28] MEDS: oxyCODONE/ACETAMINOPHEN 5 MG/325 MG TAB PO PRN ×3 (03:55→12:46)
[2017-01-28] MEDS: METHOCARBAMOL 500 MG TAB PO SCH ×2 (04:46→14:07)
[2017-01-28 08:00] VITALS: BP 126/71; PULSE 72; RESP 16; TEMP 97.3; O2SAT 96
[2017-01-28] MEDS: INSULIN ASPART SUPPLEMENTAL SCALE SQ SCH ×2 (08:00→12:00)
[2017-01-28] MEDS: PANTOPRAZOLE SOD 20 MG DELAYED RELEASE TAB PO SCH (08:26)
[2017-01-28] MEDS: DOCUSATE SODIUM 50 MG/SENNA 8.6 MG TAB PO SCH (08:26)
[2017-01-28] MEDS: TAMSULOSIN HCL 0.4 MG CAP PO SCH (08:26)
[2017-01-28] MEDS: SODIUM CHLORIDE 0.9% FLUSH 10 ML FLUSH IV FLUSH SCH (08:26)
[2017-01-28 08:57] LABS: AUTOMATED NEUTROPHIL # 8.9 TH/MM3 (1.8-7.7); BASOPHIL # 0.1 TH/MM3 (0-0.2); BASOPHIL % 0.4 % (0.0-2.0); EOSINOPHIL # 0.4 TH/MM3 (0-0.4); EOSINOPHIL % 3.1 % (0.0-4.0); HEMATOCRIT 28.5 % (35.0-46.0); HEMOGLOBIN 8.9 GM/DL (11.6-15.3); LYMPH % 16.6 % (9.0-44.0); LYMPHOCYTE # 2.1 TH/MM3 (1.0-4.8); MEAN CORPUSCULAR HEMOGLOBIN 30.3 PG (27.0-34.0); MEAN CORPUSCULAR HGB CONC 31.2 % (32.0-36.0); MEAN PLATELET VOLUME 7.1 FL (7.0-11.0); MONO % 8.3 % (0.0-8.0); NEUT % 71.6 % (16.0-70.0); PLATELET COUNT 566 TH/MM3 (150-450); RED BLOOD COUNT 2.94 MIL/MM3 (4.00-5.30); RED CELL DISTRIBUTION WIDTH 16.4 % (11.6-17.2); WHITE BLOOD COUNT 12.4 TH/MM3 (4.0-11.0)
[2017-01-28 09:31] LABS: ALBUMIN 1.9 GM/DL (3.4-5.0); AST (GOT) 10 U/L (15-37); BICARBONATE 24.7 MEQ/L (21.0-32.0); BLOOD UREA NITROGEN 4 MG/DL (7-18); CALCIUM 8.4 MG/DL (8.5-10.1); CHLORIDE 103 MEQ/L (98-107); CREATININE 0.74 MG/DL (0.50-1.00); GLOMERULAR FILTRATION RATE 85 ML/MIN (>89); GLUCOSE,RANDOM 76 MG/DL (74-106); MAGNESIUM 1.8 MG/DL (1.5-2.5); SODIUM (NA) 136 MEQ/L (136-145)
[2017-01-28 09:44] LABS: ALKALINE PHOSPHATASE 69 U/L (45-117); ALT (GPT) 10 U/L (10-53); FREE T4 1.53 NG/DL (0.76-1.46); PHOSPHORUS 2.8 MG/DL (2.5-4.9); TOTAL BILIRUBIN ADULT 0.2 MG/DL (0.2-1.0)
[2017-01-28] MEDS: SODIUM CHLOR 0.9% 1000 ML INJ 1,000 ML IV SCH (11:27)
[2017-01-28 11:45] VITALS: BP 123/78; PULSE 90; RESP 18; TEMP 96.6; O2SAT 93
--- NOTE | 2017-01-28 11:46 | HHI.PR ---
Subjective Remarks 46-year-old female with past medical history significant for type 2 diabetes mellitus presents to the emergency department with a two-week history of left sided abdominal pain. Ago, the patient was seen by her PCP and diagnosed with acute diverticulitis, prescribed Cipro/Flagyl. Her pain continued to worsen and she presented to the emergency department this afternoon with intractable left-sided abdominal and flank pain. UA significant for moderate blood, large leukocyte esterase and white blood cells. White blood cell count was 19 and the patient was tachycardic. CT of the abdomen and pelvis showed a staghorn calculus in the left renal collecting system with mild to moderate hydronephrosis and surrounding inflammatory change. The patient does have a history of kidney stones although her last one was approximately 10 years ago and she is status post lithotripsy. She denies fever/chills or other systemic symptoms. 01-27 STILL COMPLAINING OF LEFT SIDE FLANK PAIN HAD FEVERS LAST NIGHT STILL NOT CONTROLLED ON CURRENT PAIN MEDS, TAKING DILAUDID AND PERCOCETS WILL ADD MUSCLE RELAXERS DW RN AND PT AND CM. Increase Percocet to 5/325 2 TABS Q4H 01-28 NO MORE FEVERS CAN BE DCED TO HOME TODAY FOLLOW UP WITH UROLOGY PO ANTIBIOTICS AND PO ANTIFUNGALS PO PAIN CONTROL DC TO HOME HHC FOR LEFT PCN TUBE Objective Vitals Vital Signs Date Time Temp Pulse Resp B/P (MAP) Pulse Ox O2 Delivery O2 Flow Rate FiO2 01/28/17 08:00 97.3 72 16 126/71 (89) 96 01/28/17 07:37 18 01/28/17 05:00 18 01/28/17 00:00 97.6 85 20 121/65 (83) 96 01/27/17 20:00 99.6 94 20 119/65 (83) 93 01/27/17 16:00 98.3 121 20 133/74 (93) 91 01/27/17 12:00 98.2 87 20 123/58 (79) 97 I/O 01/27/17 01/27/17 01/27/17 01/28/17 01/28/17 01/28/17 07:00 15:00 23:00 07:00 15:00 23:00 Intake Total 1934 ml 590 ml 650 ml 480 ml Output Total 550 ml 800 ml 1650 ml 200 ml Balance 1384 ml 590 ml -150 ml -1170 ml -200 ml Intake Oral 600 ml 480 ml IV Total 1934 ml 590 ml 50 ml Output Urine Total 800 ml 1650 ml Drainage Total 550 ml 200 ml # Voids 3 3 1 # Bowel Movements 2 1 1 Result Diagram: 01/28/17 0817 01/28/17 0817 Other Results Laboratory Tests Test 01/25/17 22:40 01/26/17 02:40 01/27/17 08:35 01/27/17 13:00 Urine Color LIGHT-YELLOW Urine Turbidity HAZY Urine pH 6.5 Urine Specific [place] 1.011 Urine Protein 30 mg/dL Urine Glucose (UA) NEG mg/dL Urine Ketones 10 mg/dL Urine Occult Blood MOD Urine Nitrite NEG Urine Bilirubin NEG Urine Urobilinogen LESS THAN 2.0 MG/DL Urine Leukocyte Esterase LARGE Urine RBC 20 /hpf Urine WBC 89 /hpf Urine WBC Clumps FEW Urine Squamous Epithelial Cells 45 /hpf Urine Bacteria RARE /hpf Urine Mucus FEW /lpf Urine Yeast (Budding) FEW Microscopic Urinalysis Comment CULTURE INDICATED White Blood Count 17.4 TH/MM3 11.2 TH/MM3 Red Blood Count 3.08 MIL/MM3 2.30 MIL/MM3 Hemoglobin 9.4 GM/DL 7.1 GM/DL Hematocrit 30.0 % 22.1 % Mean Corpuscular Volume 97.3 FL 96.0 FL Mean Corpuscular Hemoglobin 30.5 PG 30.7 PG Mean Corpuscular Hemoglobin Concent 31.4 % 32.0 % Red Cell Distribution Width 15.7 % 15.6 % Platelet Count 552 TH/MM3 436 TH/MM3 Mean Platelet Volume 7.6 FL 7.1 FL Blood Urea Nitrogen 2 MG/DL Creatinine 0.89 MG/DL Random Glucose 101 MG/DL Calcium Level 8.1 MG/DL Sodium Level 137 MEQ/L Potassium Level 4.1 MEQ/L Chloride Level 104 MEQ/L Carbon Dioxide Level 25.3 MEQ/L Anion Gap 8 MEQ/L Estimat Glomerular Filtration Rate 69 ML/MIN Hemoglobin A1c 6.0 % Phosphorus Level 2.3 MG/DL Magnesium Level 1.8 MG/DL Free Thyroxine 1.44 NG/DL Thyroid Stimulating Hormone 3rd Gen 1.250 uIU/ML Test 01/28/17 08:17 White Blood Count 12.4 TH/MM3 Red Blood Count 2.94 MIL/MM3 Hemoglobin 8.9 GM/DL Hematocrit 28.5 % Mean Corpuscular Volume 97.0 FL Mean Corpuscular Hemoglobin 30.3 PG Mean Corpuscular Hemoglobin Concent 31.2 % Red Cell Distribution Width 16.4 % Platelet Count 566 TH/MM3 Mean Platelet Volume 7.1 FL Neutrophils (%) (Auto) 71.6 % Lymphocytes (%) (Auto) 16.6 % Monocytes (%) (Auto) 8.3 % Eosinophils (%) (Auto) 3.1 % Basophils (%) (Auto) 0.4 % Neutrophils # (Auto) 8.9 TH/MM3 Lymphocytes # (Auto) 2.1 TH/MM3 Monocytes # (Auto) 1.0 TH/MM3 Eosinophils # (Auto) 0.4 TH/MM3 Basophils # (Auto) 0.1 TH/MM3 CBC Comment DIFF FINAL Differential Comment Blood Urea Nitrogen 4 MG/DL Creatinine 0.74 MG/DL Random Glucose 76 MG/DL Total Protein 7.0 GM/DL Albumin 1.9 GM/DL Calcium Level 8.4 MG/DL Phosphorus Level 2.8 MG/DL Magnesium Level 1.8 MG/DL Alkaline Phosphatase 69 U/L Aspartate Amino Transf (AST/SGOT) 10 U/L Alanine Aminotransferase (ALT/SGPT) 10 U/L Total Bilirubin 0.2 MG/DL Sodium Level 136 MEQ/L Potassium Level 3.2 MEQ/L Chloride Level 103 MEQ/L Carbon Dioxide Level 24.7 MEQ/L Anion Gap 8 MEQ/L Estimat Glomerular Filtration Rate 85 ML/MIN Free Thyroxine 1.53 NG/DL Imaging Last Impressions Renal Ultrasound 01/25/17 1418 Signed Impressions: Service Date/Time: Wednesday, January 25, 2017 14:54 - CONCLUSION: No hydronephrosis or other acute abnormality demonstrated. Left percutaneous nephrostomy tube present. Nondistended urinary bladder. Juan Tamayo MD Abdomen/Pelvis CT 01/22/172003 Signed Impressions: Service Date/Time: Sunday, January 22, 2017 20:28 - CONCLUSION: 1. Staghorn calculus in the left renal collecting system with mild to moderate hydronephrosis and surrounding inflammatory change. The kidney is mildly enlarged. 2. Hepatic steatosis. 3. Status post cholecystectomy. Kyle Davenport MD Objective Remarks GENERAL: Awake alert and oriented talkative and cooperative SKIN: Warm and dry. Nephrostomy tube on left side HEAD: Atraumatic. Normocephalic. EYES: Pupils equal and round. No scleral icterus. No injection or drainage. Extract muscles intact ENT: No nasal bleeding or discharge. Mucous membranes pink and moist. Tongue is midline NECK: Trachea midline. No JVD. Supple CARDIOVASCULAR: Regular rate and rhythm. S1 and S2 no S3 or S4 no heave or thrill or rub or gallop RESPIRATORY: No accessory muscle use. Clear to auscultation. Breath sounds equal bilaterally. GASTROINTESTINAL: Abdomen soft, non-tender, nondistended. Hepatic and splenic margins not palpable. Left-sided nephrostomy tube in place on her back MUSCULOSKELETAL: Extremities without clubbing, cyanosis, or edema. No obvious deformities. NEUROLOGICAL: Awake and alert. No obvious cranial nerve deficits. Motor grossly within normal limits. 4 out of 5 muscle strength in the arms and legs. Normal speech. PSYCHIATRIC: Appropriate mood and affect; insight and judgment normal. Procedures LEFT PERCUTANEOUS NEPHROSTOMY TUBE PLACED ON 11-3 Medications and IVs Current Medications Morphine Sulfate (Morphine Inj) 4 mg ONCE ONCE IV PUSH ; Start 01/22/17 at 20: 15; Stop 01/22/17 at 20:16; Status Cancel Ondansetron HCl (Zofran Inj) 4 mg ONCE ONCE IVP Last administered on 20:23; Start 01/22/17 at 20:15; Stop 01/22/17 at 20:16; Status DC Sodium Chloride 1,000 ml @ 1,000 mls/hr Q1H IV Last administered on 01/22/17 20:42; Start 01/22/17 at 20:04; Stop 01/22/17 at 21:03; Status DC Sodium Chloride (NS Flush) 2 ml UNSCH PRN IV FLUSH FLUSH AFTER USING IV ACCESS ; Start 01/22/17 at 20:15 Hydromorphone HCl (Dilaudid Pf Inj) 1 mg ONCE ONCE IV PUSH Last administered on 01/22/17 20:23; Start 01/22/17 at 20:15; Stop 01/22/17 at 20:16; Status DC Iohexol (Omnipaque 350 Inj) 96 ml STK-MED ONCE IVCONTRAST Last administered on 01/22/17 20:38; Start 01/22/17 at 20:38; Stop 01/22/17 at 20:39; Status DC Piperacillin Sod/ Tazobactam Sod 100 ml @ 200 mls/hr ONCE STAT IV Last administered on 01/22/17 21:20; Start 01/22/17 at 20:55; Stop 01/22/17 at 21:24 ; Status DC Sodium Chloride 1,000 ml @ 999 mls/hr BOLUS ONCE IV Last administered on 01/22 21:20; Start 01/22/17 at 21:15; Stop 01/22/17 at 22:15; Status DC Hydromorphone HCl (Dilaudid Pf Inj) 1 mg Q4H PRN IV PUSH BREAKTHROUGH PAIN Last administered on 01/28/17 11:27; Start 01/22/17 at 23:30 Sodium Chloride 1,000 ml @ 100 mls/hr Q10H IV Last administered on 01/28/17 11:27; Start 01/23/17 at 00:00 Sodium Chloride (NS Flush) 2 ml UNSCH PRN IV FLUSH FLUSH AFTER USING IV ACCESS ; Start 01/22/17 at 23:45 Sodium Chloride (NS Flush) 2 ml BID IV FLUSH Last administered on 01/27/17 08: 19; Start 01/23/17 at 09:00 Acetaminophen (Tylenol) 650 mg Q4H PRN PO TEMP > 100.4 Last administered on 21:27; Start 01/22/17 at 23:45; Stop 01/27/17 at 11:22; Status DC Ondansetron HCl (Zofran Inj) 4 mg Q6H PRN IVP NAUSEA OR VOMITING Last administered on 01/25/17 04:52; Start 01/22/17 at 23:45 Heparin Sodium (Porcine) (Heparin Inj) 5,000 units Q8H SQ ; Start 01/22/17 at 06 :00; Stop 01/23/17 at 00:03; Status DC Naloxone HCl (Narcan Inj) 0.4 mg UNSCH PRN IV PUSH SEE LABEL COMMENTS; Start 01/22/17 at 23:45 Senna/Docusate Sodium (Emma-Colace) 1 tab BID PO ; Start 01/23/17 at 09:00; Stop 01/24/17 at 09:49; Status DC Magnesium Hydroxide (Milk Of Magnesia Liq) 30 ml Q12H PRN PO Mild constipation ; Start 01/22/17 at 23:45; Stop 01/27/17 at 11:25; Status DC Sennosides (Senokot) 17.2 mg Q12H PRN PO Moderate constipation; Start 01/22/17 at 23:45; Stop 01/27/17 at 11:25; Status DC Bisacodyl (Dulcolax Supp) 10 mg DAILY PRN RECTAL SEVERE CONSITIPATION; Start 01/22/17 at 23:45; Stop 01/27/17 at 11:25; Status DC Lactulose (Lactulose Liq) 30 ml DAILY PRN PO SEVERE CONSITIPATION; Start at 23:45; Stop 01/27/17 at 11:25; Status DC Piperacillin Sod/ Tazobactam Sod 50 ml @ 100 mls/hr Q6H IV Last administered on 01/28/17 08:38; Start 01/23/17 at 03:00 Pantoprazole Sodium (Protonix) 20 mg DAILY PO Last administered on 01/28/17 08 :26; Start 01/23/17 at 09:00 Dextrose (D50w (Vial) Inj) 50 ml UNSCH PRN IV PUSH HYPOGLYCEMIA-SEE COMMENTS; Start 01/23/17 at 00:00 Glucagon (Glucagon Inj) 1 mg UNSCH PRN OTHER HYPOGLYCEMIA-SEE COMMENTS; Start 01/23/17 at 00:00 Insulin Aspart (NovoLOG SUPPLEMENTAL SCALE) 1 ACHS SLIDING SCALE SQ ; Start at 08:00 Oxycodone/ Acetaminophen (Percocet 5-325 Mg) 1 tab Q4H PRN PO pain > 4 Last administered on 01/27/17 10:45; Start 01/23/17 at 21:30; Stop 01/27/17 at 11:04 ; Status DC Midazolam HCl (Versed Inj) 5 mg STK-MED ONCE .ROUTE Last administered on 11:05; Start 01/24/17 at 11:05; Stop 01/24/17 at 11:06; Status DC Fentanyl Citrate (fentaNYL INJ) 200 mcg STK-MED ONCE .ROUTE Last administered on 01/24/17 11:05; Start 01/24/17 at 11:05; Stop 01/24/17 at 11:06; Status DC Levofloxacin/ Dextrose 100 ml @ As Directed STK-MED ONCE IV Last administered on 01/24/17 11:51; Start 01/24/17 at 11:51; Stop 01/24/17 at 11:52; Status DC Fentanyl Citrate (fentaNYL INJ) 100 mcg STK-MED ONCE .ROUTE Last administered on 01/24/17 11:52; Start 01/24/17 at 11:52; Stop 01/24/17 at 11:53; Status DC Midazolam HCl (Versed Inj) 2 mg STK-MED ONCE .ROUTE Last administered on 11:52; Start 01/24/17 at 11:52; Stop 01/24/17 at 11:53; Status DC Hydromorphone HCl (Dilaudid Pf Inj) 2 mg STK-MED ONCE .ROUTE Last administered on 01/24/17 11:59; Start 01/24/17 at 11:59; Stop 01/24/17 at 12:00; Status DC Iohexol (Omnipaque 350 Inj) 45 ml STK-MED ONCE OTHER Last administered on 12:47; Start 01/24/17 at 12:47; Stop 01/24/17 at 12:48; Status DC Lorazepam (Ativan) 0.5 mg Q6H PRN PO ANXIETY Last administered on 01/24/17 15: 51; Start 01/24/17 at 14:30 Pneumococcal Polyvalent Vaccine (Pneumovax-23 Inj) 25 mcg ONCE ONCE IM ; Start 01/25/17 at 10:00; Stop 01/25/17 at 10:01; Status DC Influenza Virus Vaccine (Flu (Quadrivalent) Vaccine Inj) 0.5 ml ONCE ONCE IM ; Start 01/25/17 at 10:00; Stop 01/25/17 at 10:01; Status DC Tamsulosin HCl (Flomax) 0.4 mg ONCE ONCE PO Last administered on 01/25/17 17: 15; Start 01/25/17 at 16:00; Stop 01/25/17 at 16:08; Status DC Tamsulosin HCl (Flomax) 0.4 mg DAILY PO Last administered on 01/28/17 08:26; Start 01/26/17 at 12:00 Methocarbamol (Robaxin) 1,000 mg Q8HR PO Last administered on 01/28/17 04:46; Start 01/27/17 at 14:00 Oxycodone/ Acetaminophen (Percocet 5-325 Mg) 2 tab Q4H PRN PO pain > 4 Last administered on 01/28/17 08:26; Start 01/27/17 at 13:30 Sodium Chloride (NS Flush) 2 ml UNSCH PRN IV FLUSH FLUSH AFTER USING IV ACCESS ; Start 01/27/17 at 11:15; Stop 01/27/17 at 11:22; Status DC Sodium Chloride (NS Flush) 2 ml BID IV FLUSH ; Start 01/27/17 at 21:00; Stop at 21:00; Status DC Acetaminophen (Tylenol) 650 mg Q4H PRN PO TEMP > 100.4; Start 01/27/17 at 11:15 Acetaminophen (Tylenol) 650 mg Q6H PRN PO PAIN SCALE 1 TO 2; Start 01/27/17 at 11:15 Senna/Docusate Sodium (Emma-Colace) 1 tab BID PO ; Start 01/27/17 at 21:00 Magnesium Hydroxide (Milk Of Magnesia Liq) 30 ml Q12H PRN PO Mild constipation ; Start 01/27/17 at 11:15 Sennosides (Senokot) 17.2 mg Q12H PRN PO Moderate constipation; Start 01/27/17 at 11:15 Bisacodyl (Dulcolax Supp) 10 mg DAILY PRN RECTAL SEVERE CONSITIPATION; Start 01/27/17 at 11:15 Lactulose (Lactulose Liq) 30 ml DAILY PRN PO SEVERE CONSITIPATION; Start at 11:15 Urinary Catheter: No Vascular Central Line Catheter: No A/P Assessment and Plan In summary, this is a 46-year-old female with type 2 diabetes mellitus presents with staghorn calculus in left renal collecting system and associated leukocytosis and UTI. The patient is status post nephrostomy tube placement. She is overall improving. However she has been having issues with urgency,? urinary Retention. Urology is following. She has had marked leukocytosis. The first urinalysis was abnormal but urine culture was negative. She has a repeat urinalysis that is also abnormal, urine cultures pending. If the patient continues to improve and urology clear her after evaluation tomorrow, she may potentially go. Need to follow up on urine cultures and fever curve. 1. Staghorn calculus CT showed hydronephrosis Urology following, Dr. Cordova. S/P Nephrostomy tube placement today. He plans for left percutaneous nephrolithotomy in about 10 days. Overnight, the patient has not been able to urinate. Urostomy output is adequate. Urology has been made aware and a Reynoso catheter has been ordered. - Obtain renal and bladder ultrasound. Pain control. Percocet. Dilaudid for breakthrough.-PO MEDS Continue IV fluid-DC Monitor output. 2. Urinary tract infection associated with renal stone Patient with leukocytosis and tachycardia Zosyn 3.375 every 6 hours Monitor for signs of septic shock IV fluids normal saline 100 cc/hour Urine cultures with probable contaminate. Leukocytosis slightly improved. However repeat urinalysis is abnormal. Continue IV antibiotics and follow repeat urine cultures. 3. Type 2 diabetes mellitus Holding home metformin Low-dose sliding scale insulin Fevers continue pain control and antibiotics FEN Diabetic diet Electrolytes within normal limits; continue to monitor Fluids as above SCDs HYPOKALEMIA REPLACE DC TO HOME TODAY SWITCH TO PO MEDS Discharge Planning DC TO HOME TODAY Angel Story DO Jan 28, 2017 11:46
[2017-01-28] MEDS ORDERED: TAMS5CAP PO (12:01)
[2017-01-28] MEDS ORDERED: METH500T3 PO (12:01)
[2017-01-28] MEDS ORDERED: METF1000 PO (12:01)
[2017-01-28] MEDS ORDERED: LORA-392 PO (12:01)
[2017-01-28] MEDS ORDERED: DIFL100T PO (12:01)
[2017-01-28] MEDS ORDERED: OXYC1TAB63 PO (12:01)
[2017-01-28] MEDS ORDERED: PRIL20TA2 PO (12:01)
[2017-01-28] MEDS ORDERED: SENN1TAB PO (12:01)
[2017-01-28] MEDS ORDERED: Lactulose Liq PO (12:01)
[2017-01-28] MEDS ORDERED: BISA10R RECTAL (12:01)
[2017-01-28] MEDS ORDERED: AMOX875T2 PO (12:01)
[2017-01-28] MEDS ORDERED: GNP8.6TA PO (12:01)
--- NOTE | 2017-01-28 12:04 | HHI.FF ---
Face to Face Verification Diagnosis: (1) Staghorn calculus (2) Diabetes Home Health Nursing Order: Wound care and dressing changes Home Health Aide Order: To Assist In: Bathing and personal care, aviation support equipment repairer and meal prep I have seen patient Debbi Wright on 01/28/17. My clinical findings support the need for the requested home health care services because: Limited ability to care for self Infection w/ risk of complications I certify that my clinical findings support that this patient is homebound because: Unsteady gait/balance Angel Story DO Jan 28, 2017 12:04
--- NOTE | 2017-01-28 12:04 | HHI.FF ---
Face to Face Verification Diagnosis: (1) Staghorn calculus (2) Diabetes Home Health Nursing Order: Wound care and dressing changes Home Health Aide Order: To Assist In: Bathing and personal care, business job titles and meal prep I have seen patient Debbi Wright on 01/28/17. My clinical findings support the need for the requested home health care services because: Limited ability to care for self Infection w/ risk of complications I certify that my clinical findings support that this patient is homebound because: Unsteady gait/balance Angel Story DO Jan 28, 2017 12:04
--- NOTE | 2017-01-28 12:04 | HHI.FF ---
Face to Face Verification Diagnosis: (1) Staghorn calculus (2) Diabetes Home Health Nursing Order: Wound care and dressing changes Home Health Aide Order: To Assist In: Bathing and personal care, stonecutter apprentice hand and meal prep I have seen patient Debbi Wright on 01/28/17. My clinical findings support the need for the requested home health care services because: Limited ability to care for self Infection w/ risk of complications I certify that my clinical findings support that this patient is homebound because: Unsteady gait/balance Angel Story DO Jan 28, 2017 12:04
[2017-01-28] MEDS ORDERED: LACTCHW3 CHEW (12:07)
--- NOTE | 2017-01-28 12:07 | HHI.DS ---
Discharge Summary Admission Date Jan 22, 2017 at 21:40 Discharge Date: Jan 28, 2017 Admitting Diagnosis urosepsis, left staghorn calculus (1) Diabetes ICD Code: E11.9 - Type 2 diabetes mellitus without complications Diagnosis: Secondary (2) Staghorn calculus ICD Code: N20.0 - Calculus of kidney Diagnosis: Principal (3) Hydronephrosis ICD Code: N13.30 - Unspecified hydronephrosis Diagnosis: Principal Procedures LEFT PERCUTANEOUS NEPHROSTOMY TUBE PLACED ON 01-24 Brief History - From Admission 46-year-old female with past medical history significant for type 2 diabetes mellitus presents to the emergency department with a two-week history of left sided abdominal pain. Ago, the patient was seen by her PCP and diagnosed with acute diverticulitis, prescribed Cipro/Flagyl. Her pain continued to worsen and she presented to the emergency department this afternoon with intractable left-sided abdominal and flank pain. UA significant for moderate blood, large leukocyte esterase and white blood cells. White blood cell count was 19 and the patient was tachycardic. CT of the abdomen and pelvis showed a staghorn calculus in the left renal collecting system with mild to moderate hydronephrosis and surrounding inflammatory change. The patient does have a history of kidney stones although her last one was approximately 10 years ago and she is status post lithotripsy. She denies fever/chills or other systemic symptoms. CBC/BMP: 01/28/17 0817 01/28/17 0817 Significant Findings Laboratory Tests Test 01/25/17 22:40 01/26/17 02:40 01/27/17 08:35 01/27/17 13:00 Urine Turbidity HAZY (CLEAR) Urine Protein 30 mg/dL (NEG-TRACE) Urine Ketones 10 mg/dL (NEG) Urine Occult Blood MOD (NEG) Urine Leukocyte Esterase LARGE (NEG) Urine RBC 20 /hpf (0-3) Urine WBC 89 /hpf (0-5) Urine WBC Clumps FEW (NONE) Urine Bacteria RARE /hpf (NONE) Urine Mucus FEW /lpf (OCC) Urine Yeast (Budding) FEW (NONE) White Blood Count 17.4 TH/MM3 (4.0-11.0) 11.2 TH/MM3 (4.0-11.0) Red Blood Count 3.08 MIL/MM3 (4.00-5.30) 2.30 MIL/MM3 (4.00-5.30) Hemoglobin 9.4 GM/DL (11.6-15.3) 7.1 GM/DL (11.6-15.3) Hematocrit 30.0 % (35.0-46.0) 22.1 % (35.0-46.0) Mean Corpuscular Hemoglobin Concent 31.4 % (32.0-36.0) Platelet Count 552 TH/MM3 (150-450) Blood Urea Nitrogen 2 MG/DL (7-18) Calcium Level 8.1 MG/DL (8.5-10.1) Estimat Glomerular Filtration Rate 69 ML/MIN (>89) Phosphorus Level 2.3 MG/DL (2.5-4.9) Test 01/28/17 08:17 White Blood Count 12.4 TH/MM3 (4.0-11.0) Red Blood Count 2.94 MIL/MM3 (4.00-5.30) Hemoglobin 8.9 GM/DL (11.6-15.3) Hematocrit 28.5 % (35.0-46.0) Mean Corpuscular Hemoglobin Concent 31.2 % (32.0-36.0) Platelet Count 566 TH/MM3 (150-450) Neutrophils (%) (Auto) 71.6 % (16.0-70.0) Monocytes (%) (Auto) 8.3 % (0.0-8.0) Neutrophils # (Auto) 8.9 TH/MM3 (1.8-7.7) Monocytes # (Auto) 1.0 TH/MM3 (0-0.9) Blood Urea Nitrogen 4 MG/DL (7-18) Albumin 1.9 GM/DL (3.4-5.0) Calcium Level 8.4 MG/DL (8.5-10.1) Aspartate Amino Transf (AST/SGOT) 10 U/L (15-37) Potassium Level 3.2 MEQ/L (3.5-5.1) Estimat Glomerular Filtration Rate 85 ML/MIN (>89) Free Thyroxine 1.53 NG/DL (0.76-1.46) Imaging Last Impressions Renal Ultrasound 01/25/17 1418 Signed Impressions: Service Date/Time: Wednesday, January 25, 2017 14:54 - CONCLUSION: No hydronephrosis or other acute abnormality demonstrated. Left percutaneous nephrostomy tube present. Nondistended urinary bladder. Juan Tamayo MD Abdomen/Pelvis CT 01/22/172003 Signed Impressions: Service Date/Time: Sunday, January 22, 2017 20:28 - CONCLUSION: 1. Staghorn calculus in the left renal collecting system with mild to moderate hydronephrosis and surrounding inflammatory change. The kidney is mildly enlarged. 2. Hepatic steatosis. 3. Status post cholecystectomy. Klye Davenport MD PE at Discharge GENERAL: Awake alert and oriented talkative and cooperative SKIN: Warm and dry. Nephrostomy tube on left side HEAD: Atraumatic. Normocephalic. EYES: Pupils equal and round. No scleral icterus. No injection or drainage. Extract muscles intact ENT: No nasal bleeding or discharge. Mucous membranes pink and moist. Tongue is midline NECK: Trachea midline. No JVD. Supple CARDIOVASCULAR: Regular rate and rhythm. S1 and S2 no S3 or S4 no heave or thrill or rub or gallop RESPIRATORY: No accessory muscle use. Clear to auscultation. Breath sounds equal bilaterally. GASTROINTESTINAL: Abdomen soft, non-tender, nondistended. Hepatic and splenic margins not palpable. Left-sided nephrostomy tube in place on her back MUSCULOSKELETAL: Extremities without clubbing, cyanosis, or edema. No obvious deformities. NEUROLOGICAL: Awake and alert. No obvious cranial nerve deficits. Motor grossly within normal limits. 4 out of 5 muscle strength in the arms and legs. Normal speech. PSYCHIATRIC: Appropriate mood and affect; insight and judgment normal. Hospital Course 46-year-old female with past medical history significant for type 2 diabetes mellitus presents to the emergency department with a two-week history of left sided abdominal pain. Ago, the patient was seen by her PCP and diagnosed with acute diverticulitis, prescribed Cipro/Flagyl. Her pain continued to worsen and she presented to the emergency department this afternoon with intractable left-sided abdominal and flank pain. UA significant for moderate blood, large leukocyte esterase and white blood cells. White blood cell count was 19 and the patient was tachycardic. CT of the abdomen and pelvis showed a staghorn calculus in the left renal collecting system with mild to moderate hydronephrosis and surrounding inflammatory change. The patient does have a history of kidney stones although her last one was approximately 10 years ago and she is status post lithotripsy. She denies fever/chills or other systemic symptoms. 01-27 STILL COMPLAINING OF LEFT SIDE FLANK PAIN HAD FEVERS LAST NIGHT STILL NOT CONTROLLED ON CURRENT PAIN MEDS, TAKING DILAUDID AND PERCOCETS WILL ADD MUSCLE RELAXERS DW RN AND PT AND CM. Increase Percocet to 5/325 2 TABS Q4H 01-28 NO MORE FEVERS CAN BE DCED TO HOME TODAY FOLLOW UP WITH UROLOGY PO ANTIBIOTICS AND PO ANTIFUNGALS PO PAIN CONTROL DC TO HOME HHC FOR LEFT PCN TUBE Pt Condition on Discharge: Stable Discharge Disposition: Disch w/ Home Health Serv Discharge Time: > 30 minutes Discharge Instructions DIET: Follow Instructions for: Heart Healthy Diet, Diabetic Diet Speech Therapy-Diet Recommends: Regular Activities you can perform: Shower Only-No Bath Other Activity Instructions: KEEP NEPHROSTOMY SITE CLEAN AND DRY AND DRESSED Follow up Referrals: Home Health PCP Follow-up - 1 Week with Eduard Su DO Urology - 1 Week with Edd Cordova MD New Medications: Lactobacillus Acidophilus (Lactinex) 1 Chew 1 TAB CHEW TID for Nutritional Supplement, #90 TAB 0 Refills Amoxicillin-Clavulanate (Amoxicillin-Clavulanate) 875-125 mg Tab 875 MG PO Q12HR for Infection, #28 TAB not for use in CrCl <30 mL/minute Bisacodyl Supp (Bisac-Evac Supp) 10 Mg Supp 10 MG RECTAL DAILY PRN for SEVERE CONSITIPATION, #30 SUPP Fluconazole (Diflucan) 100 Mg Tab 100 MG PO DAILY for Infection, #14 TAB Lorazepam (Ativan) 0.5 Mg Tab 0.5 MG PO Q6H PRN for ANXIETY, #60 TAB Methocarbamol (Methocarbamol) 500 Mg Tab 1000 MG PO Q8HR for Pain Management, #180 TAB Oxycodone-Acetaminophen (Oxycodone-Acetaminophen) 5-325 mg Tab 2 TAB PO Q4H PRN for pain > 4, #60 TAB Sennosides (Gnp Senna-Lax) 8.6 Mg Tab 17.2 MG PO Q12H PRN for Moderate constipation, #120 TAB Sennosides-Docusate Sodium (Senna Plus 8.6-50 mg) 8.6 Mg-50 Mg Tab 1 TAB PO BID for Constipation, #60 TAB Tamsulosin (Flomax) 0.4 Mg Cap 0.4 MG PO DAILY for Urinary Symptom Managemen, #30 CAP [Lactulose Liq] () 30 ML SYRP 30 ML PO DAILY PRN for SEVERE CONSITIPATION, #900 ML Continued Medications: Metformin (Metformin) 1,000 Mg Tab 1000 MG PO BID for Blood Sugar Management, #60 TAB 0 Refills (This prescription has been renewed) With a meal Omeprazole Magnesium (Prilosec) 20 Mg Tab 20 MG PO DAILY for Heartburn Management, #30 TAB (This prescription has been renewed) Discontinued Medications: Ciprofloxacin (Cipro) 250 Mg Tab 500 MG PO BID for Infection, TAB 0 Refills Metronidazole (Flagyl) 250 Mg Tab 500 MG PO TID for Infection, TAB 0 Refills [advil] () 800 MG PO BID Angel Story DO Jan 28, 2017 12:07
[2017-01-28] MEDS ORDERED: FLUCONAZOLE 100 MG TAB PO SCH (13:00)
[2017-01-28] MEDS ORDERED: AMOXICILLIN/CLAVULANATE K 875 MG TAB PO SCH (13:00)
[2017-01-28 16:00] VITALS: BP 129/73; PULSE 75; RESP 17; TEMP 98; O2SAT 97
--- NOTE | 2017-01-28 23:23 | RADRPT ---
EXAM DATE/TIME: 01/24/2017 10:35 [facility] COMPARISON: No previous studies available for comparison. INDICATIONS : Patient with large staghorn calculus.Urosepsis. MEDICAL HISTORY : 1. HTN 2. DM 3. Kidney stones SURGICAL HISTORY : 1. Cholecystectomy 2. uterine ablation ENCOUNTER: Initial ACUITY: 2 weeks PAIN SCORE: 5/10 LOCATION: Left flank FLUORO TIME: 14.4 minutes IMAGE SERIES: 4 SEDATION TIME: 40 minutes CONTRAST: 45 cc Omnipaque (iohexol) 350 MEDICATION(S): 1.) 7 mg midazolam (Versed) IV 2.) 2 mg hydromorphone (Dilaudid) IV 3.) 275 mcg fentanyl (Sublimaze) IV 4.) 500 mg levofloxacin (Levaquin) IV Intra-procedural antibiotics were given as prescribed above. DEVICE(S): 1.) 8 Australian 24 cm nephroureteral stent Expel PROCEDURE : 1. Ultrasound-guided puncture of the kidney. 2. Antegrade percutaneous pyelogram. 3. Percutaneous nephroureteral stent placement. 4. Conscious sedation with continuous EKG and oximetry monitoring. The risks, benefits and alternatives to the procedure were explained and verbal and written consent w as obtained. The site was prepped in sterile fashion. Full sterile technique was used, including ca p, mask, sterile gloves and gown and a large sterile sheet. Hand hygiene and 2% chlorhexidine and/or betadine/alcohol prep was utilized per protocol for cutaneous antisepsis. Sterile gel and sterile p robe cover were utilized for ultrasound guidance. The skin and subcutaneous tissues were infiltrated with local anesthetic solution. With ultrasound and fluoroscopic guidance the selected kidney was punctured and a percutaneous antegr audrey pyelogram was performed demonstrating a dilated collecting system. Serial dilatation was perform ed and the prescribed nephroureteral stent was placed with the proximal portion within the renal pelv is and the distal extent in the urinary bladder. Injection of positive contrast demonstrates good po sition of the catheter. A staghorn calculus is present in the right renal pelvis as well as in the ureteropelvic junction. Ca liectasis is present. Conscious sedation was performed with the prescribed dosages and duration as above in the presence of an independent trained radiology nurse to assist in the monitoring of the patient. EKG and oximetry remained stable throughout the procedure. The patient tolerated the procedure well and there were n o complications. The patient was sent to post anesthesia recovery in stable condition. CONCLUSION: Uncomplicated nephroureteral stent placement as above. Parminder Gilman MD on January 28, 2017 at 23:21 Board Certified Radiologist. This report was verified electronically.
== END 2017-01-28 16:16 | disposition home health service (06) | DRG 690 ==
LOC: NEPC 19:44 → NEDA 21:40 → N07A 01-23 00:43
PROVIDERS: ADMIT Hospitalist; ATTEND Hospitalist
PROC: 0T9130Z Drainage of Left Kidney with Drainage Device, Percutaneous Approach (ICD-10-PCS; principal; 2017-01-24)
DX: N13.6 Pyonephrosis (principal); Z68.43 Body mass index [BMI] 50.0-59.9, adult; I10 Essential (primary) hypertension; K57.92 Diverticulitis of intestine, part unspecified, without perforation or abscess without bleeding; E66.9 Obesity, unspecified; F17.210 Nicotine dependence, cigarettes, uncomplicated; K21.9 Gastro-esophageal reflux disease without esophagitis; E11.9 Type 2 diabetes mellitus without complications; R00.0 Tachycardia, unspecified; Z87.442 Personal history of urinary calculi; E87.6 Hypokalemia; Z79.84 Long term (current) use of oral hypoglycemic drugs
CPT/HCPCS: 50433; 74177; 76775; 76937; 80048; 80053; 81001; 82948; 83036; 83605; 83690; 83735; 84100; 84439; 84443; 85007; 85025; 85027; 85610; 85730; 87040; 87086; 87106; 96361; 96365; 96375; 99152; 99153; C1769; C1877; C1887; C1894; J1170; J1956; J2250; J2405; J2543; J3010; J7030; Q9967

== ENCOUNTER 2017-01-30 10:45 | Day surgery (SDC) | payer OTHER ==
[~2017-01-30 10:45] MED LIST changes: -ALBU2.5I NEB; +AMOX875T2 PO; +BISA10R RECTAL; +DIFL100T PO; +GNP8.6TA PO; -HEPARIN SODIUM - SQ 10,000 UNITS/ML VIAL SQ SCH; +LACTCHW3 CHEW; +LORA-392 PO; +Lactulose Liq PO; -MACR100C PO; +METF1000 PO; +METH500T3 PO; -MOTR200T PO; -OMEP20CA5 PO; +OXYC1TAB63 PO; +PRIL20TA2 PO; -PROM25TA5 PO; +SENN1TAB PO; +TAMS5CAP PO; -[UNRECOGNIZED DRUG - CODE] PO
[2017-01-30 11:01] VITALS: BP 147/105; PULSE 111; RESP 20; TEMP 98.3; O2SAT 92
[2017-02-03] MEDS ORDERED: PERC5TAB12 PO (10:52)
== END 2017-01-30 11:15 | disposition home or self-care (01) ==
LOC: HROP 10:45 → HRIP 10:49 → HROP 11:15
PROVIDERS: ATTEND Internal Medicine
DX: N13.6 Pyonephrosis (principal)

== ENCOUNTER 2017-02-18 12:36 | Observation (INO) | payer OTHER ==
[~2017-02-18] VITALS: Ht 167.6 cm; Wt 137.5 kg
[~2017-02-18 12:36] MED LIST changes: -AMOX875T2 PO; -BISA10R RECTAL; +DEXAMETHASONE SOD PHOS 4 MG/ML VIAL IV ONE; -DIFL100T PO; -GNP8.6TA PO; +IRON18TA PO; -LACTCHW3 CHEW; +LIDOCAINE HCL 1% PF 5 ML SYRINGE OTHER ONE; -Lactulose Liq PO; -METH500T3 PO; +MIDAZOLAM HCL 2 MG/2 ML VIAL IV ONE; +ONDANSETRON HCL 4 MG/2 ML VIAL IV PUSH ONE; -OXYC1TAB63 PO; +PHENYLEPH/NS 1000 MCG/10 ML SYR IV ONE; +PROPOFOL 200 MG/20 ML AMP IV ONE; +ROCURONIUM INJ 50 MG/5 ML SYRINGE IV PUSH ONE; -SENN1TAB PO; -TAMS5CAP PO; +ceFAZolin INJ 1,000 MG VIAL IV ONE; +ePHEDrine/NS 25 MG/5 ML SYR IV ONE
[2017-02-18] MEDS ORDERED: POVIDONE IODINE 5% (ANTISEPSIS KIT) 4 APPLICATIONS EACH NARE PRN (13:15)
[2017-02-18] MEDS ORDERED: METOPROLOL TARTRATE 25 MG TAB PO PRN (13:15)
[2017-02-18] MEDS ORDERED: LACTATED RINGER'S 1000 ML IV PRN (13:15)
[2017-02-18] MEDS ORDERED: CHLORHEXIDINE GLUCONATE 2 % 1 PACK (2 CLOTHS) TOPICAL PRN (13:15)
[2017-02-18] MEDS ORDERED: SODIUM CHLORID 0.9% 500 ML IV PRN (13:15)
[2017-02-18] MEDS ORDERED: FUROSEMIDE 40 MG/4 ML VIAL ONE (13:44)
[2017-02-18] MEDS ORDERED: ceFAZolin 2 GM PREMIX 50 ML IV SCH (14:00)
[2017-02-18 14:18] LABS: AUTOMATED NEUTROPHIL # 7.6 TH/MM3 (1.8-7.7); BASOPHIL % 0.3 % (0.0-2.0); EOSINOPHIL # 0.6 TH/MM3 (0-0.4); EOSINOPHIL % 5.1 % (0.0-4.0); HEMATOCRIT 22.4 % (35.0-46.0); LYMPH % 22.1 % (9.0-44.0); LYMPHOCYTE # 2.6 TH/MM3 (1.0-4.8); MEAN CELL VOLUME 89.4 FL (80.0-100.0); MEAN CORPUSCULAR HEMOGLOBIN 27.4 PG (27.0-34.0); MEAN CORPUSCULAR HGB CONC 30.7 % (32.0-36.0); MONO % 6.9 % (0.0-8.0); NEUT % 65.6 % (16.0-70.0); PLATELET COUNT 420 TH/MM3 (150-450); RED CELL DISTRIBUTION WIDTH 17.3 % (11.6-17.2); WHITE BLOOD COUNT 11.6 TH/MM3 (4.0-11.0)
[2017-02-18 14:26] LABS: HEMO FLAGS AUTO DIFF
[2017-02-18 14:28] LABS: ALT (GPT) 14 U/L (10-53); ANION GAP 8 MEQ/L (5-15); AST (GOT) 16 U/L (15-37); BICARBONATE 24.9 MEQ/L (21.0-32.0); BLOOD UREA NITROGEN 13 MG/DL (7-18); CHLORIDE 106 MEQ/L (98-107); GLOMERULAR FILTRATION RATE 79 ML/MIN (>89); POTASSIUM 4.1 MEQ/L (3.5-5.1); SODIUM (NA) 139 MEQ/L (136-145)
[2017-02-18 14:30] LABS: ALKALINE PHOSPHATASE 79 U/L (45-117); TOTAL BILIRUBIN ADULT 0.2 MG/DL (0.2-1.0)
--- NOTE | 2017-02-18 14:42 | EKG ---
Date Performed: 02/18/2017 Time Performed: 13:05:36 PTAGE: 46 years EKG: SINUS TACHYCARDIA ABNORMAL RHYTHM ECG No significant change from prior electrocardiogram. PREVIOUS TRACING : 09/28/2015 08.19 DOCTOR: Sourav Ventura Interpretating Date/Time 02/18/2017 14:40:27
[2017-02-18] MEDS ORDERED: SUGAMMADEX SODIUM 200 MG/2 ML VIAL IV PUSH ONE ×2 (15:10)
[2017-02-18 15:21] VITALS: PULSE 99
[2017-02-18 15:45] LABS: SCAN/DIFF AUTO DIFF CONFIRMED
[2017-02-18 15:46] LABS: PLATELET ESTIMATE SMEAR NORMAL (NORMAL); PLATELET MORPHOLOGY NORMAL (NORMAL)
[2017-02-18] MEDS ORDERED: *morphine SULFATE 8 MG/ML PERIprocedure ONLY ONE (16:13)
[2017-02-18] MEDS ORDERED: CISATRACURIUM BESYLATE 20 MG/10 ML VIAL ONE (16:43)
[2017-02-18 17:30] LABS: BLOOD GAS BASE EXCESS 0.8 mmol/L (-2-2); BLOOD GAS CARBOXYHEMOGLOBIN 1.8 % (0-4); BLOOD GAS HCO3 24 mmol/L (22-26); BLOOD GAS METHEMOGLOBIN 1.3 % (0-2); BLOOD GAS O2 HGB SATURATION 96 % (90-100); BLOOD GAS OXYGEN CONTENT 10.2 Vol % (12.0-20.0); BLOOD GAS PCO2 36 mmHg (38-42); BLOOD GAS PO2 193 mmHg (61-120); BLOOD GAS TOTAL HGB 7.2 G/DL (12.0-16.0); CRITICAL VALUE NO; FIO2 60 %; NUMBER OF ARTERIAL PUNCTURES 1; STAT YES; TEMP CORR TO 98.6
[2017-02-18] MEDS ORDERED: ceFAZolin 2 GM PREMIX 50 ML IV ONE (19:00)
[2017-02-18] MEDS ORDERED: IOHEXOL 350 MG/ML 50 ML BTL (for RAD DIAG) OTHER ONE (19:20)
--- NOTE | 2017-02-18 19:56 | PD.OP ---
Operative Report Date of Surgery: Feb 18, 2017 Preoperative Diagnosis: (1) Staghorn calculus Postoperative Diagnosis: (1) Staghorn calculus Procedure: Left nephrostogram, removal of left nephrostomy tube, cystoscopy, left retrograde pyelogram and left ureteral stent placement. Anesthesia: General Surgeon: Edd Cordova [employer](s): None Operation and Findings: Indication for procedure: Case of a pleasant 46-year-old female with a large left renal staghorn calculus who is status post placement of a left nephroureteral tube approximately one month ago and presents now for a left percutaneous nephrolithotomy. Operative procedure in detail: Patient was brought to the operating suite and placed under general anesthesia while still on the stretcher. She was then placed in the prone position on the OR table and all pressure points were adequately padded. She was then prepped and draped in normal sterile fashion. After appropriate timeout was undertaken I proceeded with performing a left nephrostogram via the previously placed left nephroureteral tube. The patient was again was noted to have a large staghorn calculus involving most of the left intrarenal collecting system. I then attempted to pass a sensor 0.035 wire through this nephroureteral tube however the wire would only advance to the level of the loop within the kidney and not advance any further. Different wires were utilized and again the passage was not successful. The nephroureteral tube was then removed and the sensor wire was advanced via the tract several centimeters to the level of the kidney until small amount of resistance was met. I next balloon dilated this tract with the NephroMax balloon dilation catheter and subsequently advance the nephroscope sheath over the balloon. The balloon was next deflated and the NephroMax catheter withdrawn. The nephroscope was utilized and this was easily advanced down the tract however it did not reach the kidney. I then removed the nephroscope and placed a sterile dressing at the nephrostomy tube site. It was clear at this point that I would be unable to proceed with the percutaneous nephrolithotomy. The patient was repositioned in the dorsal lithotomy position and reprepped and draped in normal sterile fashion. I then proceeded with cystoscopic evaluation utilizing the rigid cystoscope with the 30 lens and 20 Chinese sheath. Both right and left ureteral orifice is going correct anatomic position. There was no reflux noted on the left and clear reflux noted on the right. I then advanced a sensor 0.35 wire up the patient's left ureter under fluoroscopic guidance and was able to advance the wire beyond the staghorn left renal calculus and into the upper pole collecting system. A 28 cm length 6 Chinese [place] terminal computer operator stent was next placed over the wire under both cystoscopic and fluoroscopic guidance without difficulty. Once the stent was in place, the trailing string was removed. A 16 Chinese 10 cc Reynoso catheter was then placed and connected to gravity drainage. The patient tolerated the procedures without compensations and was transferred to the PACU in satisfactory condition. The patient will ultimately require placement of a left nephrostomy tube with subsequent management with a left percutaneous nephrolithotomy. Edd Cordova MD Feb 18, 2017 19:56
[2017-02-18] MEDS ORDERED: *MEPERIDINE 25 MG INJ VIAL PERIprocedural Use ONLY ONE (19:57)
[2017-02-18 20:00] VITALS: BP 118/67; PULSE 86; RESP 18; TEMP 96.9; O2SAT 95
[2017-02-18] MEDS ORDERED: ONDANSETRON HCL 4 MG/2 ML VIAL IV PUSH PRN (20:00)
[2017-02-18] MEDS ORDERED: oxyCODONE/ACETAMINOPHEN 5 MG/325 MG TAB PO PRN (20:00)
[2017-02-18] MEDS ORDERED: PERC5TAB12 PO (20:10)
[2017-02-18] MEDS ORDERED: CEPH-460 PO (20:10)
[2017-02-18] MEDS ORDERED: MORPHINE SULFATE 8 MG/ML INJ ONE ×2 (20:11→20:23)
[2017-02-18] MEDS ORDERED: LORazepam 0.5 MG TAB PO PRN (20:15)
[2017-02-18] MEDS: oxyCODONE/ACETAMINOPHEN 5 MG/325 MG TAB PO PRN (21:21)
[2017-02-18 22:30] LABS: AUTOMATED NEUTROPHIL # 9.6 TH/MM3 (1.8-7.7); BASOPHIL % 0.2 % (0.0-2.0); EOSINOPHIL # 0.2 TH/MM3 (0-0.4); EOSINOPHIL % 1.5 % (0.0-4.0); HEMATOCRIT 24.7 % (35.0-46.0); HEMO FLAGS DIFF FINAL; LYMPH % 12.1 % (9.0-44.0); LYMPHOCYTE # 1.4 TH/MM3 (1.0-4.8); MEAN CELL VOLUME 89.1 FL (80.0-100.0); MEAN CORPUSCULAR HEMOGLOBIN 27.4 PG (27.0-34.0); MEAN CORPUSCULAR HGB CONC 30.8 % (32.0-36.0); MONO % 2.6 % (0.0-8.0); NEUT % 83.6 % (16.0-70.0); PLATELET COUNT 367 TH/MM3 (150-450); RED BLOOD COUNT 2.78 MIL/MM3 (4.00-5.30); RED CELL DISTRIBUTION WIDTH 17.1 % (11.6-17.2); WHITE BLOOD COUNT 11.5 TH/MM3 (4.0-11.0)
[2017-02-18] MEDS: FERROUS SULFATE 325 MG (65 MG ELEMENTAL IRON) TAB PO SCH (23:04)
[2017-02-19] VITALS: BP 103/58; PULSE 78; RESP 18; TEMP 97.3; O2SAT 96
[2017-02-19] MEDS: HYDROmorphone HCL PF 1 MG/ML VIAL IV PUSH PRN ×2 (01:52→07:31)
[2017-02-19] MEDS: oxyCODONE/ACETAMINOPHEN 5 MG/325 MG TAB PO PRN ×2 (03:59→10:03)
[2017-02-19 04:09] VITALS: BP 105/55; PULSE 65; RESP 18; TEMP 96.4; O2SAT 94
[2017-02-19 06:19] LABS: BASOPHIL % 0.1 % (0.0-2.0); HEMATOCRIT 25.5 % (35.0-46.0); HEMO FLAGS DIFF FINAL; LYMPH % 12.9 % (9.0-44.0); LYMPHOCYTE # 1.4 TH/MM3 (1.0-4.8); MEAN CELL VOLUME 89.4 FL (80.0-100.0); MEAN CORPUSCULAR HEMOGLOBIN 28.3 PG (27.0-34.0); MEAN CORPUSCULAR HGB CONC 31.7 % (32.0-36.0); MONO % 2.3 % (0.0-8.0); NEUT % 84.7 % (16.0-70.0); PLATELET COUNT 385 TH/MM3 (150-450); RED BLOOD COUNT 2.85 MIL/MM3 (4.00-5.30); RED CELL DISTRIBUTION WIDTH 17.2 % (11.6-17.2); WHITE BLOOD COUNT 10.6 TH/MM3 (4.0-11.0)
[2017-02-19 06:38] LABS: BICARBONATE 25.9 MEQ/L (21.0-32.0); POTASSIUM 4.8 MEQ/L (3.5-5.1)
[2017-02-19] MEDS: FERROUS SULFATE 325 MG (65 MG ELEMENTAL IRON) TAB PO SCH (07:34)
--- NOTE | 2017-02-19 08:44 | RADRPT ---
EXAM DATE/TIME: 02/18/2017 00:00 [facility] COMPARISON: No previous studies available for comparison. INDICATIONS : Stent placement MEDICAL HISTORY : Gastroesophageal reflux disease. SURGICAL HISTORY : Tonsillectomy. Cholecystectomy. ENCOUNTER: Initial ACUITY: 1 day PAIN SCORE: Non-responsive. LOCATION: Left Abdomen FINDINGS: 4 magnified C. arm spot views are centered over the abdomen. There is a double-J stent observed and t his is labeled left. The stent extends from the region of the renal pelvis towards the urinary bladde r. No dilated loops of bowel observed within the [id number]. CONCLUSION: Limited images as detailed above. Yonis Espinosa Jr., MD on February 19, 2017 at 8:41 Board Certified Radiologist. This report was verified electronically.
[2017-02-19] MEDS ORDERED: PANTOPRAZOLE SOD 20 MG DELAYED RELEASE TAB PO SCH (09:00)
[2017-02-20] MEDS ORDERED: metFORMIN HCL 500 MG TAB PO SCH (21:00)
[2017-02-24] MEDS ORDERED: PERC5TAB12 PO (11:13)
== END 2017-02-19 10:26 | disposition home or self-care (01) ==
LOC: HSDC 12:36 → EDSTATUS 14:30 → N07A 21:00
PROVIDERS: ADMIT Urology; ATTEND Urology
DX: N20.0 Calculus of kidney (principal); R94.31 Abnormal electrocardiogram [ECG] [EKG]
CPT/HCPCS: 00862; 36430; 36600; 50561; 52332; 74000; 76000; 80048; 80053; 82805; 85025; 86077; 86850; 86870; 86880; 86900; 86901; 86920; 86921; 86922; 93005; C1769; G0378; J0690; J1100; J1170; J1940; J2175; J2250; J2270; J2370; J2405; J3010; J7120; P9016; Q9967; 74430

== ENCOUNTER 2017-03-03 06:35 | Inpatient (IN) | payer OTHER ==
[~2017-03-03] VITALS: Ht 167.6 cm; Wt 137.7 kg
[~2017-03-03 06:35] MED LIST changes: +CEPH-460 PO; -DEXAMETHASONE SOD PHOS 4 MG/ML VIAL IV ONE; -LIDOCAINE HCL 1% PF 5 ML SYRINGE OTHER ONE; -MIDAZOLAM HCL 2 MG/2 ML VIAL IV ONE; -ONDANSETRON HCL 4 MG/2 ML VIAL IV PUSH ONE; +PERC5TAB12 PO; -PHENYLEPH/NS 1000 MCG/10 ML SYR IV ONE; -PROPOFOL 200 MG/20 ML AMP IV ONE; -ROCURONIUM INJ 50 MG/5 ML SYRINGE IV PUSH ONE; -ceFAZolin INJ 1,000 MG VIAL IV ONE; -ePHEDrine/NS 25 MG/5 ML SYR IV ONE
[2017-03-03] MEDS ORDERED: IOHEXOL 350 MG/ML 50 ML BTL (for RAD DIAG) OTHER ONE (06:36)
[2017-03-03 06:51] VITALS: BP 143/103; PULSE 83; RESP 20; TEMP 98.1; O2SAT 96
[2017-03-03] MEDS ORDERED: MIDAZOLAM HCL 5 MG/5 ML VIAL ONE (07:41)
[2017-03-03] MEDS: SODIUM CHLORIDE 0.9% 1000 ML IV SCH (07:45)
[2017-03-03] MEDS: LEVOFLOXACIN 500 MG PREMIX 100 ML - nephrostomy tube insertion or exchange IV SCH (08:45)
[2017-03-03 09:00] LABS: APTT (PATIENT) 22.6 SEC (24.3-30.1); INTERNATIONAL NORMALIZED RATIO 1.1 RATIO; PROTHROMBIN TIME - PATIENT 10.7 SEC (9.8-11.6)
[2017-03-03] MEDS ORDERED: SODIUM BICARBONATE 8.4% INJ 50 ML ONE (09:33)
[2017-03-03] MEDS ORDERED: LORazepam 2 MG/ML VIAL ONE (09:34)
[2017-03-03] MEDS ORDERED: MIDAZOLAM HCL 2 MG/2 ML VIAL ONE ×2 (09:44→09:57)
[2017-03-03] MEDS ORDERED: HYDROmorphone HCL PF 2 MG/ML VIAL ONE (09:54)
--- NOTE | 2017-03-03 10:13 | PD.RAD ---
Post Procedure Progress Note Pre Procedure Diagnosis: (1) Staghorn calculus (2) Hydronephrosis Post Procedure Diagnosis: (1) Staghorn calculus (2) Hydronephrosis Procedure Date: Mar 03, 2017 Supervising Radiologist: Patrick Hill Estimated blood loss: 2cc Anesthesia: Local, Conscious Sedation Plan of Activity Patient to Unit: ROPU Patient Condition: Good Additional Comments: Picc place due to difficult access. Left nephrostomy tube place. Catheter placed down to the bladder. Full dictated report to follow See PACS Report for procedural detail/treatment Patrick Hill MD Mar 03, 2017 10:13
[2017-03-03] MEDS ORDERED: SODIUM CHLORIDE 0.9% FLUSH 10 ML FLUSH IVF PRN ×2 (10:15)
[2017-03-03 10:20] VITALS: BP 114/67; PULSE 79; RESP 14; TEMP 97.8; O2SAT 94
[2017-03-03 10:35] VITALS: BP 119/63; PULSE 83; RESP 16; O2SAT 97
[2017-03-03 11:05] VITALS: BP 120/71; PULSE 84; RESP 16; O2SAT 95
[2017-03-03] MEDS ORDERED: MORPHINE SULFATE 8 MG/ML INJ ONE (12:11)
[2017-03-03] MEDS ORDERED: MORPHINE SULFATE 2 MG/ML INJ IV SCH (13:15)
[2017-03-03 13:30] VITALS: BP 142/73; PULSE 106; RESP 20; O2SAT 99
[2017-03-03] MEDS ORDERED: MORPHINE SULFATE 2 MG/ML INJ IV PUSH ONE (14:30)
--- NOTE | 2017-03-03 15:05 | HHI.HP ---
HPI Service [facility] Primary Care Physician Eduard Su, DO Admission Diagnosis Diagnoses: Chief Complaint: Staghorn calculus status post left Nephrostomy tube Travel History International Travel<30 Days: No Contact w/Intl Traveler <30 Da: No Traveled to Known Affected Are: No History of Present Illness This is a pleasant 46 y/o Male with DM II, who has Diagnosis UTI and Left staghorn calculus, he was seen back in ER due to Left sided abdominal pain, found with Hematuria, CT of the abdomen and pelvis showed a staghorn calculus in the left renal collecting system with mild to moderate hydronephrosis and surrounding inflammatory change. The patient does have a history of kidney stones although her last one was approximately 10 years ago and she is status post lithotripsy. She denies fever/chills or other systemic symptoms. today is in status post Left Nephrostomy tube by Doctor Sergio and tomorrow will have Lithotripsy by Doctor Art. I have been called to admit the patient due to intense pain after procedure, was seen with Nurse and her mother Mrs. Klaudia Mann. Review of Systems Constitutional: DENIES: Fever, Chills, Change in appetite Endocrine: DENIES: Heat/cold intolerance Eyes: DENIES: Blurred vision, Eye pain Gastrointestinal: COMPLAINS OF: Abdominal pain Except as stated in HPI: all other systems reviewed are Neg Past Family Social History Past Medical History Type 2 diabetes mellitus Iron deficiency anemia History of kidney stones 10 years ago Past Surgical History Cholecystectomy Uterine ablation Reported Medications Reported Meds & Active Scripts Active Prilosec (Omeprazole Magnesium) 20 Mg Tab 20 Mg PO DAILY Metformin (Metformin HCl) 1,000 Mg Tab 1,000 Mg PO BID With a meal Reported Iron (Ferrous Sulfate) 18 Mg Tab 1,000 Mg PO BID Allergies: Coded Allergies: No Known Allergies (Verified Allergy, Severe, 02/18/17) Active Ordered Medications Current Medications Medications (Trade) Dose Ordered Sig/Camilla Route Start Time Stop Time Status Last Admin Sodium Chloride 1,000 ml @ 30 mls/hr Q24H IV 03/03/17 07:45 03/06/17 07:44 03/03/17 07:45 Levofloxacin/ Dextrose 100 ml @ 100 mls/hr TUMBLING BARREL PAINTER IV 03/03/17 07:45 03/06/17 07:44 03/03/17 08:45 (NS Flush) DAILY IVF 03/04/17 09:00 (Heparin Central Flush) DAILY IV FLUSH 03/04/17 09:00 (NS Flush) UNSCH PRN IVF 03/03/17 10:15 (Heparin Central Flush) UNSCH PRN IV FLUSH 03/03/17 10:15 (NS Flush) UNSCH PRN IVF 03/03/17 10:15 Family History Mother with type 2 diabetes mellitus. Father alive and healthy. Social History Occasional alcohol. Tobacco very rarely. Denies marijuana or illicit drugs. Physical Exam Vital Signs Vital Signs Date Time Temp Pulse Resp B/P (MAP) Pulse Ox O2 Delivery O2 Flow Rate FiO2 03/03/17 11:05 84 16 120/71 (87) 95 03/03/17 10:35 83 16 119/63 (81) 97 03/03/17 10:20 97.8 79 14 114/67 (83) 94 03/03/17 07:17 96 Room Air 03/03/17 07:06 96 Room Air 03/03/17 06:51 98.1 83 20 143/103 (116) 96 Physical Exam GENERAL: Morbid obese patient in acute distress after procedure. SKIN: No rashes, ecchymoses or lesions. Cool and dry. HEAD: Atraumatic. Normocephalic. No temporal or scalp tenderness. EYES: Pupils equal round and reactive. Extraocular motions intact. No scleral icterus. No injection or drainage. ENT: Nose without bleeding. NECK: Trachea midline. No JVD or lymphadenopathy. Supple, nontender, no meningeal signs. CARDIOVASCULAR: Regular rate and rhythm without murmurs, gallops, or rubs. RESPIRATORY: Clear to auscultation. Breath sounds equal bilaterally. No wheezes , rales, or rhonchi. GASTROINTESTINAL: Soft but tender on left flank. MUSCULOSKELETAL: Extremities without clubbing, cyanosis, or edema. NEUROLOGICAL: Awake and alert. No focal deficits. Laboratory Laboratory Tests Test 03/03/17 08:30 Prothrombin Time 10.7 Prothromb Time International Ratio 1.1 Activated Partial Thromboplast Time 22.6 Caprini VTE Risk Assessment Caprini VTE Risk Assessment: No/Low Risk (score <= 1) Caprini Risk Assessment Model Point Value = 1 Point Value = 2 Point Value = 3 Point Value = 5 Age 41-60 Minor surgery BMI > 25 kg/m2 Swollen legs Varicose veins or History of unexplained or recurrent spontaneous Oral contraceptives or hormone replacement Sepsis (< 1 month) Serious lung disease, including pneumonia (< 1 month) Abnormal pulmonary function Acute myocardial infarction Congestive heart failure (< 1 month) History of inflammatory bowel disease Medical patient at bed rest Age 61-74 Arthroscopic surgery Major open surgery (> 45 min) Laparoscopic surgery (> 45 min) Malignancy Confined to bed (> 72 hours) Immobilizing plaster cast Central venous access Age >= 75 History of VTE Family history of VTE Factor V Leiden Prothrombin [id number] Lupus anticoagulant Anticardiolipin antibodies Elevated serum homocysteine Heparin-induced thrombocytopenia Other congenital or acquired thrombophilia Stroke (< 1 month) Elective arthroplasty Hip, pelvis, or leg fracture Acute spinal cord injury (< 1 month) Prophylaxis Regimen Total Risk Factor Score Risk Level Prophylaxis Regimen 0-1 Low Early ambulation 2 Moderate Order ONE of the following: *Sequential Compression Device (SCD) *Heparin 5000 units SQ BID 3-4 Higher Order ONE of the following medications: *Heparin 5000 units SQ TID *Enoxaparin/Lovenox 40 mg SQ daily (WT < 150 kg, CrCl > 30 mL/min) *Enoxaparin/Lovenox 30 mg SQ daily (WT < 150 kg, CrCl > 10-29 mL/min) *Enoxaparin/Lovenox 30 mg SQ BID (WT < 150 kg, CrCl > 30 mL/min) AND/OR *Sequential Compression Device (SCD) 5 or more Highest Order ONE of the following medications: *Heparin 5000 units SQ TID (Preferred with Epidurals) *Enoxaparin/Lovenox 40 mg SQ daily (WT < 150 kg, CrCl > 30 mL/min) *Enoxaparin/Lovenox 30 mg SQ daily (WT < 150 kg, CrCl > 10-29 mL/min) *Enoxaparin/Lovenox 30 mg SQ BID (WT < 150 kg, CrCl > 30 mL/min) AND *Sequential Compression Device (SCD) Assessment and Plan Assessment and Plan 1. Staghorn calculus, CT showed hydronephrosis status post Nephrostomy tube placed today by IR Doctor Sergio awaiting for Lithotripsy tomorrow. at this time asking for pain medicine, as per patient Morphine is not helping her she uses Oxycodone at home. 2. DM II on Hold Metformin, will continue SSI. asked for hemoglobin A1C 3. Morbid obesity strongly recommended diet and exercise as outpatient FEN Diabetic diet Fluids NS at 100 ml per hour. Follow BMP in am tomorrow SCDs Code Status Full code. Discussed Condition With Lindsay, her Nurse Miss Tolliver and her Mother Mrs. Klaudia Mann. Tom De MD Mar 03, 2017 15:04
[2017-03-03] MEDS ORDERED: NALOXONE HCL 0.4 MG/ML AMP IV PUSH PRN (15:15)
[2017-03-03] MEDS ORDERED: MAGNESIUM HYDROXIDE SUSP 30 ML CUP PO PRN (15:15)
[2017-03-03] MEDS ORDERED: SODIUM CHLORIDE 0.9% FLUSH 10 ML FLUSH IV FLUSH PRN (15:15)
[2017-03-03] MEDS ORDERED: BISACODYL 10 MG SUPP RECTAL PRN (15:15)
[2017-03-03] MEDS ORDERED: DEXTROSE 50% IN WATER 50 ML VIAL(D50) IV PUSH PRN (15:15)
[2017-03-03] MEDS ORDERED: GLUCAGON 1 MG/ML VIAL OTHER PRN (15:15)
[2017-03-03] MEDS ORDERED: ONDANSETRON HCL 4 MG/2 ML VIAL IVP PRN (15:15)
[2017-03-03 15:30] VITALS: BP 137/99; PULSE 105; RESP 20; O2SAT 93
[2017-03-03] MEDS ORDERED: DIAZEPAM 10 MG TAB PO ONE (15:30)
[2017-03-03] MEDS ORDERED: oxyCODONE/ACETAMINOPHEN 10 MG/325 MG TAB PO PRN (15:45)
--- NOTE | 2017-03-03 16:08 | RADRPT ---
EXAM DATE/TIME: 03/03/2017 00:00 [facility] COMPARISON: ANTEGRADE PYELOGRAM, LEFT, January 24, 2017, 12:47. INDICATIONS : Patient presents with staghorn calculus in need of ureteral stent with seperate nephrostomy placement for lithotripsy procedure. MEDICAL HISTORY : Hx kidney stones HTN Diverticulitis GERD SURGICAL HISTORY : Tonsillectomy Evette Nephrostomy tube Endometrial ablation ENCOUNTER: Subsequent ACUITY: 2 weeks PAIN SCORE: 5/10 LOCATION: Left flank FLUORO TIME: 15.1 minutes IMAGE SERIES: 4 SEDATION TIME: 60 minutes CONTRAST: 35 cc Omnipaque (iohexol) 350 MEDICATION(S): 1.) 9 mg midazolam (Versed) IV 2.) 2 mg hydromorphone (Dilaudid) IV 3.) 200 mcg fentanyl (Sublimaze) IV 4.) 2 mg lorazepam (Ativan) IV DEVICE(S): 1.) 8 Peruvian 25CM EXPEL 2.) 4FR 65CM STRAIGHT GL PROCEDURE : 1. left percutaneous nephrostomy with placement of left ureteral stent. 2. Left antegrade pyelogram. The risks, benefits and alternatives to the procedure were explained and verbal and written consent w as obtained. The site was prepped in sterile fashion. Full sterile technique was used, including ca p, mask, sterile gloves and gown and a large sterile sheet. Hand hygiene and 2% chlorhexidine and/or betadine/alcohol prep was utilized per protocol for cutaneous antisepsis. The skin and subcutaneous tissues were infiltrated with local anesthetic solution. The patient's large staghorn stone the left kidney was identified. The skin above the was not size wi thin cc 1% lidocaine. 25 gauge needle was advanced onto the stone. A small injection of contrast high lighted the collecting system. A posterior lower pole calyx was selected. This was accessed with a 22 gauge Chiba needle. A 0.018 wire was advanced down the ureter. A 3/4 dilator was placed over the wir e. The 0.018 wire was exchanged for a 0.035 wire. A 5 Peruvian hemostatic sheath was advanced over-the- wire. A second guidewire was passed to the bladder. The sheath was removed. A 4 Peruvian catheter was a dvanced down to the bladder. A fresh nephrostomy tube was coiled within the collecting system of the kidney. CONCLUSION: 1. Successful left percutaneous nephrostomy. 2. Limited antegrade pyelogram was performed this demonstrated dilated collecting system. The patient 's ureteral stent was in good position. Patrick Hill MD on March 03, 2017 at 16:04 Board Certified Radiologist. This report was verified electronically.
--- NOTE | 2017-03-03 16:17 | RADRPT ---
EXAM DATE/TIME: 03/03/2017 09:22 [facility] COMPARISON: PERCUTANEOUS ANTEGRADE PYELO,LT, March 03, 2017, 0:00. INDICATIONS : Patient presents with staghorn calculus in need of peripheral intravenous line placement for medicati on administration. MEDICAL HISTORY : Hx kidney stones HTN Diverticulitis GERD SURGICAL HISTORY : Tonsillectomy Evette Nephrostomy tube Endometrial ablation ENCOUNTER: Initial ACUITY: 2 weeks PAIN SCORE: 5/10 LOCATION: Left Flank pain. FLUORO TIME: 15.1 minutes IMAGE SERIES: 4 ACCESS: Right basilic vein DEVICE(S): 1.) 4 Kiswahili single lumen 41 cm Xcela Power PICC PROCEDURE : 1. Ultrasound guidance for venous catheterization. 2. Fluoroscopic guidance. 3. Ultrasound & fluoroscopic guided central venous Power PICC line placement. The risks, benefits and alternatives to the procedure were explained and verbal and written consent w as obtained. The site was prepped in sterile fashion. Full sterile technique was used, including ca p, mask, sterile gloves and gown and a large sterile sheet. Hand hygiene and 2% chlorhexidine prep w as utilized per protocol for cutaneous antisepsis with appropriate dry time for site. Sterile gel a nd sterile probe cover were utilized for ultrasound guidance. The skin and subcutaneous tissues wer e infiltrated with local anesthetic solution. Under direct ultrasound guidance, a suitable vein was accessed and a measuring guidewire was introduc ed and positioned in the central venous system. The ultrasound images depicting access guidance were saved and stored to PACS for permanent record. A Power Injectable PICC line was cut to prescribed length and introduced, positioned with tip at the cavoatrial junction level. The line was flushed and secured per protocol. CONCLUSION: 1. Uncomplicated central venous Power PICC line placement. 2. The PICC line can be used immediately. Patrick Hill MD on March 03, 2017 at 16:15 Board Certified Radiologist. This report was verified electronically.
[2017-03-03] MEDS: INSULIN ASPART SUPPLEMENTAL SCALE SQ SCH ×2 (17:00→21:00)
[2017-03-03] MEDS ORDERED: IOHEXOL 350 MG/ML 10 ML VIAL (for RAD DIAG) IVCONTRAST ONE (17:42)
[2017-03-03] MEDS: HYDROmorphone HCL PF 2 MG/ML VIAL IV PUSH PRN ×2 (18:16→23:14)
[2017-03-03] MEDS: SODIUM CHLOR 0.9% 1000 ML INJ 1,000 ML IV SCH (19:09)
[2017-03-03] MEDS: SODIUM CHLORIDE 0.9% FLUSH 10 ML FLUSH IV FLUSH SCH (21:00)
[2017-03-04 00:04] VITALS: BP 118/67; PULSE 111; RESP 22; TEMP 99.7; O2SAT 96
[2017-03-04] MEDS: SODIUM CHLOR 0.9% 1000 ML INJ 1,000 ML IV SCH ×2 (01:00→08:01)
[2017-03-04] MEDS: HYDROmorphone HCL PF 2 MG/ML VIAL IV PUSH PRN ×5 (03:30→23:53)
[2017-03-04 04:00] VITALS: BP 120/66; PULSE 89; RESP 22; TEMP 98.4; O2SAT 91
[2017-03-04 04:47] LABS: AUTOMATED NEUTROPHIL # 7.7 TH/MM3 (1.8-7.7); BASOPHIL % 0.2 % (0.0-2.0); EOSINOPHIL # 0.2 TH/MM3 (0-0.4); EOSINOPHIL % 2.1 % (0.0-4.0); HEMO FLAGS DIFF FINAL; LYMPH % 14.1 % (9.0-44.0); LYMPHOCYTE # 1.4 TH/MM3 (1.0-4.8); MEAN CELL VOLUME 90.8 FL (80.0-100.0); MEAN CORPUSCULAR HEMOGLOBIN 28.6 PG (27.0-34.0); MEAN CORPUSCULAR HGB CONC 31.5 % (32.0-36.0); MONO % 6.8 % (0.0-8.0); NEUT % 76.8 % (16.0-70.0); PLATELET COUNT 238 TH/MM3 (150-450); RED BLOOD COUNT 2.75 MIL/MM3 (4.00-5.30); RED CELL DISTRIBUTION WIDTH 18.3 % (11.6-17.2)
[2017-03-04 05:01] LABS: BICARBONATE 30.5 MEQ/L (21.0-32.0); POTASSIUM 3.9 MEQ/L (3.5-5.1)
[2017-03-04] MEDS: SODIUM CHLORIDE 0.9% 1000 ML IV SCH ×2 (07:31→09:32)
[2017-03-04] MEDS: INSULIN ASPART SUPPLEMENTAL SCALE SQ SCH ×3 (07:33→20:42)
[2017-03-04 08:00] VITALS: BP 112/69; PULSE 112; RESP 16; TEMP 98.1; O2SAT 97
[2017-03-04] MEDS: SODIUM CHLORIDE 0.9% FLUSH 10 ML FLUSH IV FLUSH SCH ×2 (08:02→20:42)
[2017-03-04] MEDS: SODIUM CHLORIDE 0.9% FLUSH 10 ML FLUSH IVF SCH (08:02)
--- NOTE | 2017-03-04 09:04 | HHI.PR ---
Subjective Remarks This is a pleasant 46 y/o Male with DM II, who has Diagnosis UTI and Left staghorn calculus, he was seen back in ER due to Left sided abdominal pain, found with Hematuria, CT of the abdomen and pelvis showed a staghorn calculus in the left renal collecting system with mild to moderate hydronephrosis and surrounding inflammatory change. The patient does have a history of kidney stones although her last one was approximately 10 years ago and she is status post lithotripsy. She denies fever/chills or other systemic symptoms. today is in status post Left Nephrostomy tube by Doctor Hill and tomorrow will have Lithotripsy by Doctor Art. I have been called to admit the patient due to intense pain after procedure, was seen with Nurse and her mother Mrs. Klaudia Mann. 03/04:at this time going for Lithotripsy, no new complaint discussed with nurse Miss Murillo Objective Vital Signs Date Time Temp Pulse Resp B/P (MAP) Pulse Ox O2 Delivery O2 Flow Rate FiO2 03/04/17 08:00 98.1 112 16 112/69 (83) 97 03/04/17 04:29 18 03/04/17 04:00 98.4 89 22 120/66 (84) 91 03/04/17 00:04 99.7 111 22 118/67 (84) 96 03/03/17 23:18 16 03/03/17 15:30 105 20 137/99 (112) 93 03/03/17 13:30 106 20 142/73 (96) 99 03/03/17 11:05 84 16 120/71 (87) 95 03/03/17 10:35 83 16 119/63 (81) 97 03/03/17 10:20 97.8 79 14 114/67 (83) 94 Result Diagram: 03/04/17 0340 03/04/17 0340 Imaging Last Impressions Ureteral Stent Placement 03/03/17 0000 Signed Impressions: Service Date/Time: Friday, March 03, 2017 00:00 - CONCLUSION: 1. Successful left percutaneous nephrostomy. 2. Limited antegrade pyelogram was performed this demonstrated dilated collecting system. The patient's ureteral stent was in good position. Patrick Hill MD PICC Line Insertion 03/03/17 0000 Signed Impressions: Service Date/Time: Friday, March 03, 2017 09:22 - CONCLUSION: 1. Uncomplicated central venous Power PICC line placement. 2. The PICC line can be used immediately. Patrick Hill MD Procedures status post Nephrostomy tube placed today by IR Doctor Sergio 03/03/17 Other Results Laboratory Tests Test 03/03/17 08:30 03/04/17 03:40 Prothrombin Time 10.7 SEC Prothromb Time International Ratio 1.1 RATIO Activated Partial Thromboplast Time 22.6 SEC White Blood Count 10.0 TH/MM3 Red Blood Count 2.75 MIL/MM3 Hemoglobin 7.9 GM/DL Hematocrit 25.0 % Mean Corpuscular Volume 90.8 FL Mean Corpuscular Hemoglobin 28.6 PG Mean Corpuscular Hemoglobin Concent 31.5 % Red Cell Distribution Width 18.3 % Platelet Count 238 TH/MM3 Mean Platelet Volume 8.7 FL Neutrophils (%) (Auto) 76.8 % Lymphocytes (%) (Auto) 14.1 % Monocytes (%) (Auto) 6.8 % Eosinophils (%) (Auto) 2.1 % Basophils (%) (Auto) 0.2 % Neutrophils # (Auto) 7.7 TH/MM3 Lymphocytes # (Auto) 1.4 TH/MM3 Monocytes # (Auto) 0.7 TH/MM3 Eosinophils # (Auto) 0.2 TH/MM3 Basophils # (Auto) 0.0 TH/MM3 CBC Comment DIFF FINAL Differential Comment Blood Urea Nitrogen 5 MG/DL Creatinine 0.75 MG/DL Random Glucose 107 MG/DL Calcium Level 8.3 MG/DL Sodium Level 139 MEQ/L Potassium Level 3.9 MEQ/L Chloride Level 104 MEQ/L Carbon Dioxide Level 30.5 MEQ/L Anion Gap 5 MEQ/L Estimat Glomerular Filtration Rate 84 ML/MIN Objective Remarks GENERAL: Morbid obese patient in acute distress after procedure. SKIN: No rashes, ecchymoses or lesions. Cool and dry. HEAD: Atraumatic. Normocephalic. No temporal or scalp tenderness. EYES: Pupils equal round and reactive. Extraocular motions intact. No scleral icterus. No injection or drainage. ENT: Nose without bleeding. NECK: Trachea midline. No JVD or lymphadenopathy. Supple, nontender, no meningeal signs. CARDIOVASCULAR: Regular rate and rhythm without murmurs, gallops, or rubs. RESPIRATORY: Clear to auscultation. Breath sounds equal bilaterally. No wheezes , rales, or rhonchi. GASTROINTESTINAL: Soft but tender on left flank. MUSCULOSKELETAL: Extremities without clubbing, cyanosis, or edema. NEUROLOGICAL: Awake and alert. No focal deficits. Medications and IVs Current Medications Medications (Trade) Dose Ordered Sig/Camilla Route Start Time Stop Time Status Last Admin Sodium Chloride 1,000 ml @ 30 mls/hr Q24H IV 03/03/17 07:45 03/06/17 07:44 03/03/17 07:45 Levofloxacin/ Dextrose 100 ml @ 100 mls/hr OSTOMY NURSE IV 03/03/17 07:45 03/06/17 07:44 03/03/17 08:45 (NS Flush) DAILY IVF 03/04/17 09:00 (Heparin Central Flush) DAILY IV FLUSH 03/04/17 09:00 03/04/17 08:43 (NS Flush) UNSCH PRN IVF 03/03/17 10:15 (Heparin Central Flush) UNSCH PRN IV FLUSH 03/03/17 10:15 (NS Flush) UNSCH PRN IVF 03/03/17 10:15 (NovoLOG SUPPLEMENTAL SCALE) 1 ACHS SLIDING SCALE SQ 03/03/17 17:00 Sodium Chloride 1,000 ml @ 100 mls/hr Q10H IV 03/03/17 15:00 03/04/17 08:01 (NS Flush) 2 ml UNSCH PRN IV FLUSH 03/03/17 15:15 (NS Flush) 2 ml BID IV FLUSH 03/03/17 21:00 03/03/17 21:00 (Tylenol) 650 mg Q4H PRN PO 03/03/17 15:15 (Zofran Inj) 4 mg Q6H PRN IVP 03/03/17 15:15 (Narcan Inj) 0.4 mg UNSCH PRN IV PUSH 03/03/17 15:15 (Milk Of Magnesia Liq) 30 ml Q12H PRN PO 03/03/17 15:15 (Dulcolax Supp) 10 mg DAILY PRN RECTAL 03/03/17 15:15 (D50w (Vial) Inj) 50 ml UNSCH PRN IV PUSH 03/03/17 15:15 (Glucagon Inj) 1 mg UNSCH PRN OTHER 03/03/17 15:15 (Percocet 10-325 Mg) 1 tab Q4H PRN PO 03/03/17 15:45 03/03/17 21:23 (Dilaudid Pf Inj) 1 mg Q4H PRN IV PUSH 03/03/17 15:45 03/04/17 07:27 A/P Assessment and Plan 1. Staghorn calculus, CT showed hydronephrosis status post Nephrostomy tube placed today by IR Doctor Hill awaiting for Lithotripsy today. 2. DM II on Hold Metformin, will continue SSI. asked for hemoglobin A1C 3. Morbid obesity strongly recommended diet and exercise as outpatient FEN Diabetic diet Fluids NS at 100 ml per hour. Follow BMP in am tomorrow SCDs Code Status Full code. Discussed Condition With patient and nurse Miss Murillo. Discharge Planning Once cleared by specialists. Tom De MD Mar 04, 2017 09:04
[2017-03-04] MEDS ORDERED: ACETAMINOPHEN 1000 MG/100 ML 100 ML IV ONE (10:49)
[2017-03-04] MEDS ORDERED: LACTATED RINGER'S 1000 ML IV PRN (11:00)
[2017-03-04] MEDS ORDERED: POVIDONE IODINE 5% (ANTISEPSIS KIT) 4 APPLICATIONS EACH NARE PRN (11:00)
[2017-03-04] MEDS ORDERED: METOPROLOL TARTRATE 25 MG TAB PO PRN (11:00)
[2017-03-04] MEDS ORDERED: CHLORHEXIDINE GLUCONATE 2 % 1 PACK (2 CLOTHS) TOPICAL PRN (11:00)
[2017-03-04] MEDS ORDERED: SODIUM CHLORID 0.9% 500 ML IV PRN (11:00)
[2017-03-04] MEDS: LEVOFLOXACIN 500 MG PREMIX 100 ML - nephrostomy tube insertion or exchange IV SCH ×2 (13:51→14:26)
--- NOTE | 2017-03-04 16:47 | PD.OP ---
Operative Report Date of Surgery: Mar 04, 2017 Preoperative Diagnosis: (1) Staghorn calculus Postoperative Diagnosis: (1) Staghorn calculus Procedure: Left nephrostogram, removal of left nephrostomy tube and attempted left percutaneous nephrolithotomy Anesthesia: General Surgeon: Edd Cordova Manager Multimedia(s): None Operation and Findings: Indication for procedure: The case of a pleasant 46 year-old female with a large staghorn left renal calculus who presents today for left percutaneous nephrolithotomy. Patient had a pigtail left nephrostomy tube placed yesterday as well as a open-ended catheter which was advanced in antegrade fashion from the kidney to the urinary bladder. Operative procedure in detail: Patient was brought to the operating suite and placed under general endotracheal anesthesia while on the surgical stretcher. She was then repositioned in the prone position onto the OR table and had all pressure points adequately padded. She was then prepped and draped in normal sterile fashion. After appropriate timeout was undertaken I proceeded with performing a left nephrostogram via the previously placed left nephrostomy tube. Once again patient was noted to have a large left staghorn calculus which displaced much of the contrast instilled. A sensor 0.035 wire was advanced to the open-ended catheter at the same nephrostomy site and the wire advanced all the way down to the urinary bladder. With the wire in place the open-ended catheter was withdrawn. The pigtail nephrostomy was then removed without difficulty. I then made an incision at the nephrostomy tube entry site of approximately 1 cm in length with a #11 blade and then advanced a NephroMax balloon dilation catheter over the wire. The balloon itself was not long enough to reach from the skin surface to the kidney and a had to advance the balloon subcutaneously prior to inflation. I need to extend the skin incision approximately centimeter half to facilitate this. I then proceeded with advancing the nephroscope sheath over the balloon was also inflated and again feels she flank was small in relation to the size of the patient and the distance of the kidney from the skin surface. I attempted the best I could to advance the sheath as far towards the kidneys possible and subsequently deflated the balloon and removed the NephroMax device. I then proceeded with advancing the nephroscope through the sheath however the distal end of the sheath did not make it all the way into the collecting system of the kidney. There was some extravasation of the normal saline irrigated and actually pushed the kidney further way from the overlying skin surface. I then attempted to pass the flexible cystoscope over the previously placed wire in an effort to obtain entry into the collecting system but this was not successful. I finally utilize a 36 Swedish chest tube cut down in size but longer than the nephroscope sheath to see if I could facilitate entry into collecting system and again was not successful. At this point I decided to terminate the procedure and attempted to place a reentry nephrostomy tube however this could not be advanced into proper position and the guidewire came out while attempting to advance this tube. Fortunately the patient had a previously placed left indwelling ureteral stent in place. The nephrostomy skin incision was then irrigated and closed utilizing interrupted 2-0 silk sutures and a sterile dressing applied. The patient tolerated the procedures without complications although I was not successful in reaching the stone again due to the patient's large body habitus. Patient was subsequently transferred to the PACU in satisfactory condition. Edd Cordova MD Mar 04, 2017 16:47
[2017-03-04] MEDS ORDERED: *RESP: ALBUTEROL 2.5 MG/3 ML NEB (PRN) PERIprocedural Use ONLY NEB ONE (16:48)
[2017-03-04] MEDS: SODIUM CHLOR 0.45% 1000 ML INJ 1,000 ML IV SCH (16:51)
[2017-03-04] MEDS ORDERED: KETOROLAC TROMETHAMINE 60 MG/2 ML (IM) VIAL IM PRN (17:00)
[2017-03-04] MEDS ORDERED: IOHEXOL 350 MG/ML 50 ML BTL (for RAD DIAG) PO ONE (17:00)
[2017-03-04] MEDS ORDERED: oxyCODONE/ACETAMINOPHEN 5 MG/325 MG TAB PO PRN (17:00)
[2017-03-04] MEDS ORDERED: Post-op Orders (for Pharmacy) XX ONE (17:00)
[2017-03-04] MEDS ORDERED: ONDANSETRON HCL 4 MG/2 ML VIAL IV PUSH PRN (17:00)
[2017-03-04] MEDS ORDERED: KETOROLAC TROMETHAMINE 30 MG/ML (IVP) VIAL ONE (17:15)
--- NOTE | 2017-03-04 18:12 | RADRPT ---
EXAM DATE/TIME: 03/04/2017 17:30 [facility] COMPARISON: CT ABDOMEN & PELVIS W CONTRAST, January 22, 2017, 20:28. INDICATIONS : Abdominal pain following attempted left percutaneous nephrolithotomy. IV CONTRAST: 97 cc Omnipaque 350 (iohexol) IV ORAL CONTRAST: No oral contrast ingested. RADIATION DOSE: 31.35 CTDIvol (mGy) ; Patient body habitus MEDICAL HISTORY : Renal calculi. Diverticulitis. Chronic obstructive pulmonary disease. SURGICAL HISTORY : Cholecystectomy. ENCOUNTER: Initial ACUITY: 1 day PAIN SCALE: 6/10 LOCATION: Bilateral lower quadrant TECHNIQUE: Volumetric scanning of the abdomen and pelvis was performed. Using automated exposure control and ad justment of the mA and/or kV according to patient size, radiation dose was kept as low as reasonably achievable to obtain optimal diagnostic quality images. DICOM format image data is available electro nically for review and comparison. FINDINGS: LOWER LUNGS: Bibasilar consolidating airspace disease have developed. LIVER: Homogeneous density without lesion. There is no dilation of the biliary tree. Post cholecystectomy c lips are noted. Small to moderate amount of free fluid is identified surrounding the liver and spleen . SPLEEN: Spleen is mildly enlarged. PANCREAS: Within normal limits. KIDNEYS: The left kidney is diffusely edematous. Large staghorn calculus remains evident in the pelvis extendi ng into the calyceal system. Residual contrast is identified in the collecting system. A left interna l ureteral stent is noted. Significant perinephric stranding with small gas bubbles are identified. ADRENAL GLANDS: Within normal limits. VASCULAR: There is no aortic aneurysm. BOWEL/MESENTERY: The stomach, small bowel, and colon demonstrate no acute abnormality. There is no free intraperitone al air or fluid. ABDOMINAL WALL: Within normal limits. RETROPERITONEUM: There is no lymphadenopathy. BLADDER: Reynoso catheter is in place. REPRODUCTIVE: Within normal limits. INGUINAL: There is no lymphadenopathy or hernia. MUSCULOSKELETAL: Within normal limits for patient age. CONCLUSION: 1. New bibasilar consolidating airspace disease. 2. Interval development of moderate amount free fluid within the abdomen 3. Edematous left kidney with perinephric stranding and small gas bubbles. Large central staghorn noah culus remains evident. Small amount of residual contrast is noted in the collecting system from recen t procedure. 4. Satisfactory position of left internal ureteral stent. Nino Glynn MD on March 04, 2017 at 18:04 Board Certified Radiologist. This report was verified electronically.
[2017-03-04] MEDS ORDERED: *morphine SULFATE 8 MG/ML PERIprocedure ONLY ONE (18:57)
[2017-03-04] MEDS ORDERED: DO NOT ADM ANY ANTICOAGULANT DRUGS PRN (19:15)
[2017-03-04 20:00] VITALS: BP 124/73; PULSE 84; RESP 22; TEMP 99.1; O2SAT 91
[2017-03-04] MEDS: ACETAMINOPHEN 325 MG TAB PO PRN (23:02)
[2017-03-05] VITALS (8 sets, daily range): BP systolic 100–119; BP diastolic 51–61; PULSE 69–107; RESP 17–22; TEMP 96.9–101.5; O2SAT 91–99
[2017-03-05] MEDS: HYDROmorphone HCL PF 2 MG/ML VIAL IV PUSH PRN ×9 (03:04→22:12)
[2017-03-05] MEDS: SODIUM CHLOR 0.45% 1000 ML INJ 1,000 ML IV SCH ×3 (06:22→20:43)
[2017-03-05 07:39] LABS: HEMATOCRIT 24.4 % (35.0-46.0); REVIEW FLAG FINAL
[2017-03-05] MEDS: SODIUM CHLORIDE 0.9% FLUSH 10 ML FLUSH IV FLUSH SCH ×2 (07:40→20:27)
[2017-03-05] MEDS: SODIUM CHLORIDE 0.9% FLUSH 10 ML FLUSH IVF SCH (07:40)
[2017-03-05] MEDS: INSULIN ASPART SUPPLEMENTAL SCALE SQ SCH ×4 (07:43→20:30)
[2017-03-05 07:48] LABS: BICARBONATE 26.6 MEQ/L (21.0-32.0); POTASSIUM 4.2 MEQ/L (3.5-5.1)
--- NOTE | 2017-03-05 11:23 | HHI.PR ---
Subjective Remarks This is a pleasant 46 y/o Male with DM II, who has Diagnosis UTI and Left staghorn calculus, he was seen back in ER due to Left sided abdominal pain, found with Hematuria, CT of the abdomen and pelvis showed a staghorn calculus in the left renal collecting system with mild to moderate hydronephrosis and surrounding inflammatory change. The patient does have a history of kidney stones although her last one was approximately 10 years ago and she is status post lithotripsy. She denies fever/chills or other systemic symptoms. today is in status post Left Nephrostomy tube by Doctor Sergio and tomorrow will have Lithotripsy by Doctor Art. I have been called to admit the patient due to intense pain after procedure, was seen with Nurse and her mother Mrs. Klaudia Mann. 03/04:at this time going for Lithotripsy, no new complaint discussed with nurse Miss Murillo 03/05: Stable in her bedroom, she had procedure yesterday, she has a pigtail left nephrostomy tube placed on 03/03/17, had left nephrostogram, by previous placed Nephrostomy tube, was noted to have a large left staghorn calculus which displaced much of the contrast instilled. wire advanced all the way down to the urinary bladder. With the wire in place the open-ended catheter was withdrawn. The pigtail nephrostomy was then removed without difficulty. not successful in reaching the stone. she will be followed later today he recommended to transfer the patient to [facility] will need doctor to Doctor for Urology accepting physician at [facility]. No nausea, vomit or diarrhea. Objective Vital Signs Date Time Temp Pulse Resp B/P (MAP) Pulse Ox O2 Delivery O2 Flow Rate FiO2 03/05/17 10:50 97 Nasal Cannula 2.00 03/05/17 08:00 96.9 69 17 100/51 (67) 97 03/05/17 04:00 98.3 88 22 108/59 (75) 96 03/05/17 00:00 98.5 86 22 111/61 (78) 95 03/05/17 00:00 93 Nasal Cannula 2.00 03/04/17 20:00 99.1 84 22 124/73 (90) 91 03/04/17 19:15 98.3 83 14 116/66 (83) 96 Nasal Cannula 2 03/04/17 19:00 84 14 110/64 (79) 92 Nasal Cannula 2 03/04/17 18:45 77 14 118/71 (87) 95 Nasal Cannula 2 03/04/17 18:30 92 14 120/69 (86) 94 Room Air 4 03/04/17 18:15 80 14 130/65 (86) 93 Simple Mask 7 03/04/17 18:00 89 14 104/78 (87) 93 Simple Mask 7 03/04/17 17:45 82 14 110/86 (94) 92 Simple Mask 7 03/04/17 17:30 80 14 106/74 (85) 96 Simple Mask 7 03/04/17 17:15 87 14 123/74 (90) 93 Simple Mask 7 03/04/17 17:00 98 14 112/75 (87) 90 Simple Mask 7 03/04/17 16:45 95 14 122/71 (88) 92 Simple Mask 7 03/04/17 16:42 98.9 97 14 118/61 (80) 92 Simple Mask 7 I/O 03/04/17 03/04/17 03/04/17 03/05/17 03/05/17 03/05/17 07:00 15:00 23:00 07:00 15:00 23:00 Intake Total 2400 ml 1100 ml Output Total 60 ml 1950 ml Balance 2340 ml -850 ml Intake IV Total 1100 ml Other 2400 ml Output Urine Total 50 ml 1950 ml Estimated Blood Loss 10 ml # Voids 3 # Bowel Movements 0 Result Diagram: 03/05/17 0645 03/05/17 0645 Imaging Last Impressions Abdomen/Pelvis CT 03/04/17 0000 Signed Impressions: Service Date/Time: Saturday, March 04, 2017 17:30 - CONCLUSION: 1. New bibasilar consolidating airspace disease. 2. Interval development of moderate amount free fluid within the abdomen 3. Edematous left kidney with perinephric stranding and small gas bubbles. Large central staghorn calculus remains evident. Small amount of residual contrast is noted in the collecting system from recent procedure. 4. Satisfactory position of left internal ureteral stent. Nino Glynn MD Ureteral Stent Placement 03/03/17 0000 Signed Impressions: Service Date/Time: Friday, March 03, 2017 00:00 - CONCLUSION: 1. Successful left percutaneous nephrostomy. 2. Limited antegrade pyelogram was performed this demonstrated dilated collecting system. The patient's ureteral stent was in good position. Patrick Hill MD PICC Line Insertion 03/03/17 0000 Signed Impressions: Service Date/Time: Friday, March 03, 2017 09:22 - CONCLUSION: 1. Uncomplicated central venous Power PICC line placement. 2. The PICC line can be used immediately. Patrick Hill MD Procedures status post Nephrostomy tube placed today by IR Doctor Sergio 03/03/17 Attempted Lithotripsy 03/04/17 Other Results Laboratory Tests Test 03/03/17 08:30 03/04/17 03:40 03/05/17 06:45 Prothrombin Time 10.7 SEC Prothromb Time International Ratio 1.1 RATIO Activated Partial Thromboplast Time 22.6 SEC White Blood Count 10.0 TH/MM3 Red Blood Count 2.75 MIL/MM3 Mean Corpuscular Volume 90.8 FL Mean Corpuscular Hemoglobin 28.6 PG Mean Corpuscular Hemoglobin Concent 31.5 % Red Cell Distribution Width 18.3 % Platelet Count 238 TH/MM3 Mean Platelet Volume 8.7 FL Neutrophils (%) (Auto) 76.8 % Lymphocytes (%) (Auto) 14.1 % Monocytes (%) (Auto) 6.8 % Eosinophils (%) (Auto) 2.1 % Basophils (%) (Auto) 0.2 % Neutrophils # (Auto) 7.7 TH/MM3 Lymphocytes # (Auto) 1.4 TH/MM3 Monocytes # (Auto) 0.7 TH/MM3 Eosinophils # (Auto) 0.2 TH/MM3 Basophils # (Auto) 0.0 TH/MM3 CBC Comment DIFF FINAL Differential Comment Hemoglobin 7.6 GM/DL Hematocrit 24.4 % Blood Urea Nitrogen 9 MG/DL Creatinine 0.73 MG/DL Random Glucose 133 MG/DL Calcium Level 8.3 MG/DL Sodium Level 137 MEQ/L Potassium Level 4.2 MEQ/L Chloride Level 103 MEQ/L Carbon Dioxide Level 26.6 MEQ/L Anion Gap 7 MEQ/L Estimat Glomerular Filtration Rate 86 ML/MIN Objective Remarks GENERAL: Morbid obese patient in acute distress after procedure. SKIN: No rashes, ecchymoses or lesions. Cool and dry. HEAD: Atraumatic. Normocephalic. No temporal or scalp tenderness. EYES: Pupils equal round and reactive. Extraocular motions intact. No scleral icterus. No injection or drainage. ENT: Nose without bleeding. NECK: Trachea midline. No JVD or lymphadenopathy. Supple, nontender, no meningeal signs. CARDIOVASCULAR: Regular rate and rhythm without murmurs, gallops, or rubs. RESPIRATORY: Clear to auscultation. Breath sounds equal bilaterally. No wheezes , rales, or rhonchi. GASTROINTESTINAL: Soft but tender on left flank. MUSCULOSKELETAL: Extremities without clubbing, cyanosis, or edema. NEUROLOGICAL: Awake and alert. No focal deficits. Medications and IVs Current Medications Medications (Trade) Dose Ordered Sig/Camilla Route Start Time Stop Time Status Last Admin Levofloxacin/ Dextrose 100 ml @ 100 mls/hr DIRECTOR COUNCIL ON AGING IV 03/03/17 07:45 03/06/17 07:44 03/04/17 13:51 (NS Flush) DAILY IVF 03/04/17 09:00 (Heparin Central Flush) DAILY IV FLUSH 03/04/17 09:00 03/05/17 07:40 (NS Flush) UNSCH PRN IVF 03/03/17 10:15 (Heparin Central Flush) UNSCH PRN IV FLUSH 03/03/17 10:15 (NS Flush) UNSCH PRN IVF 03/03/17 10:15 (NovoLOG SUPPLEMENTAL SCALE) 1 ACHS SLIDING SCALE SQ 03/03/17 17:00 (NS Flush) 2 ml UNSCH PRN IV FLUSH 03/03/17 15:15 (NS Flush) 2 ml BID IV FLUSH 03/03/17 21:00 03/04/17 20:42 (Tylenol) 650 mg Q4H PRN PO 03/03/17 15:15 03/04/17 23:02 (Narcan Inj) 0.4 mg UNSCH PRN IV PUSH 03/03/17 15:15 (Milk Of Magnesia Liq) 30 ml Q12H PRN PO 03/03/17 15:15 (Dulcolax Supp) 10 mg DAILY PRN RECTAL 03/03/17 15:15 (D50w (Vial) Inj) 50 ml UNSCH PRN IV PUSH 03/03/17 15:15 (Glucagon Inj) 1 mg UNSCH PRN OTHER 03/03/17 15:15 Lactated Ringer's 1,000 ml @ 30 mls/hr Q24H PRN IV 03/04/17 11:00 03/07/17 10:59 Sodium Chloride 500 ml @ 30 mls/hr [id number] PRN IV 03/04/17 11:00 03/07/17 10:59 (Lopressor) 25 mg DIRECTOR COUNCIL ON AGING PRN PO 03/04/17 11:00 03/07/17 10:59 (Betadine 5% Antisepsis Kit) 1 applic DIRECTOR COUNCIL ON AGING PRN EACH NARE 03/04/17 11:00 03/07/17 10:59 (Chlorhexidine 2% Cloth) 3 pack DIRECTOR COUNCIL ON AGING PRN TOPICAL 03/04/17 11:00 03/07/17 10:59 Sodium Chloride 1,000 ml @ 83 mls/hr Q12H3M IV 03/04/17 16:51 03/05/17 06:22 (Dilaudid Pf Inj) 2 mg Q2H PRN IV PUSH 03/04/17 17:00 03/05/17 09:56 (Toradol Inj) 30 mg Q8H PRN IM 03/04/17 17:00 03/09/17 16:59 (Zofran Inj) 4 mg Q6H PRN IV PUSH 03/04/17 17:00 Cefazolin Sodium 1000 mg/Sodium Chloride 100 ml @ 200 mls/hr Q8H IV 03/04/17 19:00 03/05/17 11:29 03/05/17 03:04 (Percocet 5-325 Mg) 1 tab Q4H PRN PO 03/04/17 17:00 Miscellaneous Information ALL NURSING DEPARTME... UNSCH PRN .XX 03/04/17 19:15 03/05/17 19:14 A/P Assessment and Plan 1. Staghorn calculus, CT showed hydronephrosis status post Nephrostomy tube placed today by IR Doctor Sergio attempted Lithotripsy yesterday and was not successful will be probably be transferred to [facility] once Urology specialist acceptance at [facility]. 2. DM II on Hold Metformin, will continue SSI. Hemoglobin A1C 6 3. Morbid obesity strongly recommended diet and exercise as outpatient 4. Iron deficiency anemia on Iron Hemoglobin 7.6 asymptomatic following. FEN Diabetic diet Fluids NS at 100 ml per hour. Follow BMP in am tomorrow SCDs Code Status Full code. Discussed Condition With patient and nurse Miss Murillo. Multidisciplinary round. Discharge Planning Probable transfer to [facility] once Urology accepting physician by Doctor Tom Ruggiero MD Mar 05, 2017 11:23
--- NOTE | 2017-03-05 11:35 | HHI.PR ---
Subjective Patient symptoms today Postop day #1 attempted left percutaneous nephrolithotomy and removal of left nephrostomy tube. Patient continues complain of left flank pain Objective Vital Signs Vital Signs Date Time Temp Pulse Resp B/P (MAP) Pulse Ox O2 Delivery O2 Flow Rate FiO2 03/05/17 10:50 97 Nasal Cannula 2.00 03/05/17 08:00 96.9 69 17 100/51 (67) 97 03/05/17 04:00 98.3 88 22 108/59 (75) 96 03/05/17 00:00 98.5 86 22 111/61 (78) 95 03/05/17 00:00 93 Nasal Cannula 2.00 03/04/17 20:00 99.1 84 22 124/73 (90) 91 03/04/17 19:15 98.3 83 14 116/66 (83) 96 Nasal Cannula 2 03/04/17 19:00 84 14 110/64 (79) 92 Nasal Cannula 2 03/04/17 18:45 77 14 118/71 (87) 95 Nasal Cannula 2 03/04/17 18:30 92 14 120/69 (86) 94 Room Air 4 03/04/17 18:15 80 14 130/65 (86) 93 Simple Mask 7 03/04/17 18:00 89 14 104/78 (87) 93 Simple Mask 7 03/04/17 17:45 82 14 110/86 (94) 92 Simple Mask 7 03/04/17 17:30 80 14 106/74 (85) 96 Simple Mask 7 03/04/17 17:15 87 14 123/74 (90) 93 Simple Mask 7 03/04/17 17:00 98 14 112/75 (87) 90 Simple Mask 7 03/04/17 16:45 95 14 122/71 (88) 92 Simple Mask 7 03/04/17 16:42 98.9 97 14 118/61 (80) 92 Simple Mask 7 Intake & Output 03/05/17 03/05/17 07:00 19:00 Intake Total 1100 ml Output Total 1950 ml Balance -850 ml Intake IV Total 1100 ml Output Urine Total 1950 ml # Bowel Movements 0 Result Diagram: 03/05/17 0645 03/05/17 0645 Objective Remarks Left nephrostomy site dressing in place. Reynoso catheter draining clear yellow urine. Abdomen soft, nontender Medications and IVs Current Medications Medications (Trade) Dose Ordered Sig/Camilla Route Start Time Stop Time Status Last Admin Levofloxacin/ Dextrose 100 ml @ 100 mls/hr NURSING EDUCATOR IV 03/03/17 07:45 03/06/17 07:44 03/04/17 13:51 (NS Flush) DAILY IVF 03/04/17 09:00 (Heparin Central Flush) DAILY IV FLUSH 03/04/17 09:00 03/05/17 07:40 (NS Flush) UNSCH PRN IVF 03/03/17 10:15 (Heparin Central Flush) UNSCH PRN IV FLUSH 03/03/17 10:15 (NS Flush) UNSCH PRN IVF 03/03/17 10:15 (NovoLOG SUPPLEMENTAL SCALE) 1 ACHS SLIDING SCALE SQ 03/03/17 17:00 (NS Flush) 2 ml UNSCH PRN IV FLUSH 03/03/17 15:15 (NS Flush) 2 ml BID IV FLUSH 03/03/17 21:00 03/04/17 20:42 (Tylenol) 650 mg Q4H PRN PO 03/03/17 15:15 03/04/17 23:02 (Narcan Inj) 0.4 mg UNSCH PRN IV PUSH 03/03/17 15:15 (Milk Of Magnesia Liq) 30 ml Q12H PRN PO 03/03/17 15:15 (Dulcolax Supp) 10 mg DAILY PRN RECTAL 03/03/17 15:15 (D50w (Vial) Inj) 50 ml UNSCH PRN IV PUSH 03/03/17 15:15 (Glucagon Inj) 1 mg UNSCH PRN OTHER 03/03/17 15:15 Lactated Ringer's 1,000 ml @ 30 mls/hr Q24H PRN IV 03/04/17 11:00 03/07/17 10:59 Sodium Chloride 500 ml @ 30 mls/hr [id number] PRN IV 03/04/17 11:00 03/07/17 10:59 (Lopressor) 25 mg NURSING EDUCATOR PRN PO 03/04/17 11:00 03/07/17 10:59 (Betadine 5% Antisepsis Kit) 1 applic NURSING EDUCATOR PRN EACH NARE 03/04/17 11:00 03/07/17 10:59 (Chlorhexidine 2% Cloth) 3 pack NURSING EDUCATOR PRN TOPICAL 03/04/17 11:00 03/07/17 10:59 Sodium Chloride 1,000 ml @ 83 mls/hr Q12H3M IV 03/04/17 16:51 03/05/17 06:22 (Dilaudid Pf Inj) 2 mg Q2H PRN IV PUSH 03/04/17 17:00 03/05/17 09:56 (Toradol Inj) 30 mg Q8H PRN IM 03/04/17 17:00 03/09/17 16:59 (Zofran Inj) 4 mg Q6H PRN IV PUSH 03/04/17 17:00 (Percocet 5-325 Mg) 1 tab Q4H PRN PO 03/04/17 17:00 Miscellaneous Information ALL NURSING DEPARTME... UNSCH PRN .XX 03/04/17 19:15 03/05/17 19:14 Iron Sucrose 100 mg/Sodium Chloride 105 ml @ 105 mls/hr DAILY IV 03/05/17 11:30 03/07/17 09:59 UNV Assessment and Plan Assessment and Plan Urologic impression: #1 status post attempted left percutaneous nephrolithotomy not successful due to the instrumentation being not long enough for the patient's body habitus #2 status post left nephrostomy tube removal #3 patient has left indwelling ureteral stent to facilitate drainage from the left kidney Plan: #1 my office is working on making arrangements for further urologic care to be performed at [facility] #2 DC Reynoso catheter today #3 discharge patient home when pain managed with oral meds #4 my office will contact patient regarding arrangements for evaluation at [facility] department of urology Edd Cordova MD Mar 05, 2017 11:35
[2017-03-05] MEDS: IRON SUCROSE INJ 100 MG in SODIUM CHLORIDE 0.9% INJ 100 ML IV SCH (13:55)
[2017-03-05] MEDS: ACETAMINOPHEN 325 MG TAB PO PRN (20:25)
[2017-03-06] VITALS (7 sets, daily range): BP systolic 101–133; BP diastolic 50–72; PULSE 86–108; RESP 17–18; TEMP 96.5–98.9; O2SAT 92–98
[2017-03-06] MEDS: HYDROmorphone HCL PF 2 MG/ML VIAL IV PUSH PRN ×5 (00:27→09:04)
[2017-03-06] MEDS: SODIUM CHLORIDE 0.9% FLUSH 10 ML FLUSH IV FLUSH SCH ×2 (07:51→20:03)
[2017-03-06] MEDS: SODIUM CHLORIDE 0.9% FLUSH 10 ML FLUSH IVF SCH (07:51)
[2017-03-06] MEDS: INSULIN ASPART SUPPLEMENTAL SCALE SQ SCH ×4 (08:00→20:11)
[2017-03-06] MEDS: IRON SUCROSE INJ 100 MG in SODIUM CHLORIDE 0.9% INJ 100 ML IV SCH (08:10)
[2017-03-06] MEDS ORDERED: LACTULOSE SYRUP 20 GM/30 ML CUP PO ONE (09:45)
[2017-03-06] MEDS ORDERED: SOD PHOSPHATE/SOD BIPHOSPHATE (ADULT) ENEMA 133ML RECTAL PRN (09:45)
[2017-03-06] MEDS ORDERED: GLYCERIN ADULT 2 GM SUPP RECTAL ONE (09:45)
[2017-03-06] MEDS: HYDROmorphone HCL 4 MG TAB PO PRN ×3 (11:52→20:47)
--- NOTE | 2017-03-06 13:11 | HHI.PR ---
Subjective Patient symptoms today Continues to complain of abdominal pain although somewhat relieved after just having a bowel movement. Feels that she is not ready to go home at this time. She did have a temperature spike last night and is afebrile today. Objective Vital Signs Vital Signs Date Time Temp Pulse Resp B/P (MAP) Pulse Ox O2 Delivery O2 Flow Rate FiO2 03/06/17 12:00 98.8 108 17 131/72 (91) 92 03/06/17 08:00 96.5 108 17 120/63 (82) 98 03/06/17 00:00 98.9 86 17 101/50 (67) 93 03/05/17 22:30 99.0 03/05/17 20:00 101.5 107 17 119/56 (77) 91 03/05/17 17:58 99 Nasal Cannula 2.00 Intake & Output 03/06/17 03/06/17 07:00 19:00 Intake Total 2332 ml Balance 2332 ml Intake Oral 480 ml IV Total 1852 ml # Voids 3 Result Diagram: 03/05/17 0645 03/05/17 0645 Objective Remarks Left nephrostomy site clean and dry with dressing in place. Abdomen soft, mildly tender, no peritoneal signs Extremities well-perfused, no calf tenderness Medications and IVs Current Medications Medications (Trade) Dose Ordered Sig/Camilla Route Start Time Stop Time Status Last Admin (NS Flush) DAILY IVF 03/04/17 09:00 (Heparin Central Flush) DAILY IV FLUSH 03/04/17 09:00 03/06/17 08:10 (NS Flush) UNSCH PRN IVF 03/03/17 10:15 (Heparin Central Flush) UNSCH PRN IV FLUSH 03/03/17 10:15 (NS Flush) UNSCH PRN IVF 03/03/17 10:15 (NovoLOG SUPPLEMENTAL SCALE) 1 ACHS SLIDING SCALE SQ 03/03/17 17:00 (NS Flush) 2 ml UNSCH PRN IV FLUSH 03/03/17 15:15 (NS Flush) 2 ml BID IV FLUSH 03/03/17 21:00 03/04/17 20:42 (Tylenol) 650 mg Q4H PRN PO 03/03/17 15:15 03/05/17 20:25 (Narcan Inj) 0.4 mg UNSCH PRN IV PUSH 03/03/17 15:15 (Milk Of Magnesia Liq) 30 ml Q12H PRN PO 03/03/17 15:15 03/06/17 09:10 (Dulcolax Supp) 10 mg DAILY PRN RECTAL 03/03/17 15:15 (D50w (Vial) Inj) 50 ml UNSCH PRN IV PUSH 03/03/17 15:15 (Glucagon Inj) 1 mg UNSCH PRN OTHER 03/03/17 15:15 Lactated Ringer's 1,000 ml @ 30 mls/hr Q24H PRN IV 03/04/17 11:00 03/07/17 10:59 Sodium Chloride 500 ml @ 30 mls/hr [id number] PRN IV 03/04/17 11:00 03/07/17 10:59 (Lopressor) 25 mg WET SILK HANGER PRN PO 03/04/17 11:00 03/07/17 10:59 (Betadine 5% Antisepsis Kit) 1 applic WET SILK HANGER PRN EACH NARE 03/04/17 11:00 03/07/17 10:59 (Chlorhexidine 2% Cloth) 3 pack WET SILK HANGER PRN TOPICAL 03/04/17 11:00 03/07/17 10:59 (Toradol Inj) 30 mg Q8H PRN IM 03/04/17 17:00 03/09/17 16:59 (Zofran Inj) 4 mg Q6H PRN IV PUSH 03/04/17 17:00 Iron Sucrose 100 mg/Sodium Chloride 105 ml @ 105 mls/hr DAILY IV 03/05/17 13:00 03/07/17 09:59 03/06/17 08:10 (Dilaudid) 4 mg Q3HR PRN PO 03/06/17 09:45 03/06/17 11:52 (Fleets Enema (Adult)) 133 ml UNSCH PRN RECTAL 03/06/17 09:45 UNV Assessment and Plan Assessment and Plan Urologic impression: #1 status post attempted left percutaneous nephrolithotomy not successful due to the instrumentation being not long enough for the patient's body habitus #2 status post left nephrostomy tube removal #3 patient has left indwelling ureteral stent to facilitate drainage from the left kidney Plan: #1 my office is working on making arrangements for further urologic care to be performed at [facility] #2 discharge patient home when pain adequately managed with oral meds #3 local wound care to nephrostomy site area #4 may Edd Hdz MD Mar 06, 2017 13:11
[2017-03-06] MEDS: KETOROLAC TROMETHAMINE 60 MG/2 ML (IM) VIAL IM SCH ×2 (13:30→22:55)
[2017-03-06] MEDS: RANITIDINE HCL SYRUP 150 MG/10 ML UDC PO SCH ×2 (13:39→20:12)
--- NOTE | 2017-03-06 14:24 | HHI.PR ---
Subjective Remarks This is a pleasant 46 y/o Male with DM II, who has Diagnosis UTI and Left staghorn calculus, he was seen back in ER due to Left sided abdominal pain, found with Hematuria, CT of the abdomen and pelvis showed a staghorn calculus in the left renal collecting system with mild to moderate hydronephrosis and surrounding inflammatory change. The patient does have a history of kidney stones although her last one was approximately 10 years ago and she is status post lithotripsy. She denies fever/chills or other systemic symptoms. today is in status post Left Nephrostomy tube by Doctor Hill and tomorrow will have Lithotripsy by Doctor Cordova. I have been called to admit the patient due to intense pain after procedure, was seen with Nurse and her mother Mrs. Klaudia Mann. 03/04:at this time going for Lithotripsy, no new complaint discussed with nurse Miss Murillo 03/05: Stable in her bedroom, she had procedure yesterday, she has a pigtail left nephrostomy tube placed on 03/03/17, had left nephrostogram, by previous placed Nephrostomy tube, was noted to have a large left staghorn calculus which displaced much of the contrast instilled. wire advanced all the way down to the urinary bladder. With the wire in place the open-ended catheter was withdrawn. The pigtail nephrostomy was then removed without difficulty. not successful in reaching the stone. she will be followed later today he recommended to transfer the patient to [place] will need doctor to Doctor for Urology accepting physician at [place]. No nausea, vomit or diarrhea. 03/06: Seen in her bedroom, stable, no complaint will try to manage her pain with Oral medicines this was discussed with patient and she accepted to try to go home today, was started in am on Dilaudid 4 mg every 3 hours as needed, then as per Doctor Art started on Toradol IM, discussed with nurse and the plan is to continue by mouth medicines supported by Toradol, no nausea, vomit or diarrhea. Objective Vital Signs Date Time Temp Pulse Resp B/P (MAP) Pulse Ox O2 Delivery O2 Flow Rate FiO2 03/06/17 12:00 98.8 108 17 131/72 (91) 92 03/06/17 08:00 96.5 108 17 120/63 (82) 98 03/06/17 00:00 98.9 86 17 101/50 (67) 93 03/05/17 22:30 99.0 03/05/17 20:00 101.5 107 17 119/56 (77) 91 03/05/17 17:58 99 Nasal Cannula 2.00 I/O 03/05/17 03/05/17 03/05/17 03/06/17 03/06/17 03/06/17 07:00 15:00 23:00 07:00 15:00 23:00 Intake Total 1100 ml 1120 ml 1332 ml 1000 ml Output Total 1950 ml Balance -850 ml 1120 ml 1332 ml 1000 ml Intake Oral 120 ml 480 ml IV Total 1100 ml 1000 ml 852 ml 1000 ml Output Urine Total 1950 ml # Voids 2 3 # Bowel Movements 0 0 Result Diagram: 03/05/17 0645 03/05/17 0645 Imaging Last Impressions Abdomen/Pelvis CT 03/04/17 0000 Signed Impressions: Service Date/Time: Saturday, March 04, 2017 17:30 - CONCLUSION: 1. New bibasilar consolidating airspace disease. 2. Interval development of moderate amount free fluid within the abdomen 3. Edematous left kidney with perinephric stranding and small gas bubbles. Large central staghorn calculus remains evident. Small amount of residual contrast is noted in the collecting system from recent procedure. 4. Satisfactory position of left internal ureteral stent. Nino Glynn MD Ureteral Stent Placement 03/03/17 0000 Signed Impressions: Service Date/Time: Friday, March 03, 2017 00:00 - CONCLUSION: 1. Successful left percutaneous nephrostomy. 2. Limited antegrade pyelogram was performed this demonstrated dilated collecting system. The patient's ureteral stent was in good position. Patrick Hill MD PICC Line Insertion 03/03/17 0000 Signed Impressions: Service Date/Time: Friday, March 03, 2017 09:22 - CONCLUSION: 1. Uncomplicated central venous Power PICC line placement. 2. The PICC line can be used immediately. Patrick Hill MD Procedures status post Nephrostomy tube placed today by IR Doctor Sergio 03/03/17 Attempted Lithotripsy 03/04/17 Other Results Laboratory Tests Test 03/03/17 08:30 03/04/17 03:40 03/05/17 06:45 Prothrombin Time 10.7 SEC Prothromb Time International Ratio 1.1 RATIO Activated Partial Thromboplast Time 22.6 SEC White Blood Count 10.0 TH/MM3 Red Blood Count 2.75 MIL/MM3 Mean Corpuscular Volume 90.8 FL Mean Corpuscular Hemoglobin 28.6 PG Mean Corpuscular Hemoglobin Concent 31.5 % Red Cell Distribution Width 18.3 % Platelet Count 238 TH/MM3 Mean Platelet Volume 8.7 FL Neutrophils (%) (Auto) 76.8 % Lymphocytes (%) (Auto) 14.1 % Monocytes (%) (Auto) 6.8 % Eosinophils (%) (Auto) 2.1 % Basophils (%) (Auto) 0.2 % Neutrophils # (Auto) 7.7 TH/MM3 Lymphocytes # (Auto) 1.4 TH/MM3 Monocytes # (Auto) 0.7 TH/MM3 Eosinophils # (Auto) 0.2 TH/MM3 Basophils # (Auto) 0.0 TH/MM3 CBC Comment DIFF FINAL Differential Comment Hemoglobin 7.6 GM/DL Hematocrit 24.4 % Blood Urea Nitrogen 9 MG/DL Creatinine 0.73 MG/DL Random Glucose 133 MG/DL Calcium Level 8.3 MG/DL Sodium Level 137 MEQ/L Potassium Level 4.2 MEQ/L Chloride Level 103 MEQ/L Carbon Dioxide Level 26.6 MEQ/L Anion Gap 7 MEQ/L Estimat Glomerular Filtration Rate 86 ML/MIN Objective Remarks GENERAL: Morbid obese patient in acute distress after procedure. SKIN: No rashes, ecchymoses or lesions. Cool and dry. HEAD: Atraumatic. Normocephalic. No temporal or scalp tenderness. EYES: Pupils equal round and reactive. Extraocular motions intact. No scleral icterus. No injection or drainage. ENT: Nose without bleeding. NECK: Trachea midline. No JVD or lymphadenopathy. Supple, nontender, no meningeal signs. CARDIOVASCULAR: Regular rate and rhythm without murmurs, gallops, or rubs. RESPIRATORY: Clear to auscultation. Breath sounds equal bilaterally. No wheezes , rales, or rhonchi. GASTROINTESTINAL: Soft but tender on left flank. MUSCULOSKELETAL: Extremities without clubbing, cyanosis, or edema. NEUROLOGICAL: Awake and alert. No focal deficits. Medications and IVs Current Medications Medications (Trade) Dose Ordered Sig/Camilla Route Start Time Stop Time Status Last Admin (NS Flush) DAILY IVF 03/04/17 09:00 (Heparin Central Flush) DAILY IV FLUSH 03/04/17 09:00 03/06/17 08:10 (NS Flush) UNSCH PRN IVF 03/03/17 10:15 (Heparin Central Flush) UNSCH PRN IV FLUSH 03/03/17 10:15 (NS Flush) UNSCH PRN IVF 03/03/17 10:15 (NovoLOG SUPPLEMENTAL SCALE) 1 ACHS SLIDING SCALE SQ 03/03/17 17:00 (NS Flush) 2 ml UNSCH PRN IV FLUSH 03/03/17 15:15 (NS Flush) 2 ml BID IV FLUSH 03/03/17 21:00 03/04/17 20:42 (Tylenol) 650 mg Q4H PRN PO 03/03/17 15:15 03/05/17 20:25 (Narcan Inj) 0.4 mg UNSCH PRN IV PUSH 03/03/17 15:15 (Milk Of Magnesia Liq) 30 ml Q12H PRN PO 03/03/17 15:15 03/06/17 09:10 (Dulcolax Supp) 10 mg DAILY PRN RECTAL 03/03/17 15:15 (D50w (Vial) Inj) 50 ml UNSCH PRN IV PUSH 03/03/17 15:15 (Glucagon Inj) 1 mg UNSCH PRN OTHER 03/03/17 15:15 Lactated Ringer's 1,000 ml @ 30 mls/hr Q24H PRN IV 03/04/17 11:00 03/07/17 10:59 Sodium Chloride 500 ml @ 30 mls/hr [id number] PRN IV 03/04/17 11:00 03/07/17 10:59 (Lopressor) 25 mg NANOTECHNOLOGY ENGINEERING TECHNICIAN PRN PO 03/04/17 11:00 03/07/17 10:59 (Betadine 5% Antisepsis Kit) 1 applic NANOTECHNOLOGY ENGINEERING TECHNICIAN PRN EACH NARE 03/04/17 11:00 03/07/17 10:59 (Chlorhexidine 2% Cloth) 3 pack NANOTECHNOLOGY ENGINEERING TECHNICIAN PRN TOPICAL 03/04/17 11:00 03/07/17 10:59 (Zofran Inj) 4 mg Q6H PRN IV PUSH 03/04/17 17:00 Iron Sucrose 100 mg/Sodium Chloride 105 ml @ 105 mls/hr DAILY IV 03/05/17 13:00 03/07/17 09:59 03/06/17 08:10 (Dilaudid) 4 mg Q3HR PRN PO 03/06/17 09:45 03/06/17 11:52 (Fleets Enema (Adult)) 133 ml UNSCH PRN RECTAL 03/06/17 09:45 UNV (Toradol Inj) 30 mg Q8H IM 03/06/17 14:00 03/11/17 13:59 03/06/17 13:30 (Zantac Liq) 150 mg Q12HR PO 03/06/17 14:00 03/06/17 13:39 A/P Assessment and Plan 1. Staghorn calculus, CT showed hydronephrosis status post Nephrostomy tube placed today by IR Doctor Hill attempted Lithotripsy yesterday and was not successful, arrangements as outpatient will be done by doctor Cordova for follow up at [facility], at this time okay to discharge if pain controlled with Pain medicines. 2. DM II on Hold Metformin, will continue SSI. Hemoglobin A1C 6 3. Morbid obesity strongly recommended diet and exercise as outpatient 4. Iron deficiency anemia on Iron Hemoglobin 7.6 asymptomatic following. FEN Diabetic diet Remove IV fluids Remove Dilaudid IV and continue by mouth. SCDs Code Status Full code. Discussed Condition With patient and nurse Miss Murillo. Multidisciplinary round. Discharge Planning Discharge Home once able to manage pain with oral medicines. Tom De MD Mar 06, 2017 14:24
[2017-03-07] VITALS: BP 115/57; PULSE 88; RESP 17; TEMP 97.2; O2SAT 94
[2017-03-07] MEDS: HYDROmorphone HCL 4 MG TAB PO PRN ×5 (00:11→13:45)
[2017-03-07] MEDS: KETOROLAC TROMETHAMINE 60 MG/2 ML (IM) VIAL IM SCH (06:21)
[2017-03-07 08:00] VITALS: BP 117/71; PULSE 88; RESP 18; TEMP 97.9; O2SAT 93
[2017-03-07] MEDS: INSULIN ASPART SUPPLEMENTAL SCALE SQ SCH ×2 (08:00→12:00)
[2017-03-07] MEDS: RANITIDINE HCL SYRUP 150 MG/10 ML UDC PO SCH (09:00)
[2017-03-07] MEDS: SODIUM CHLORIDE 0.9% FLUSH 10 ML FLUSH IVF SCH (09:00)
[2017-03-07] MEDS: IRON SUCROSE INJ 100 MG in SODIUM CHLORIDE 0.9% INJ 100 ML IV SCH (09:14)
[2017-03-07] MEDS: SODIUM CHLORIDE 0.9% FLUSH 10 ML FLUSH IV FLUSH SCH (09:15)
--- NOTE | 2017-03-07 09:46 | HHI.PR ---
Subjective Remarks This is a pleasant 46 y/o Male with DM II, who has Diagnosis UTI and Left staghorn calculus, he was seen back in ER due to Left sided abdominal pain, found with Hematuria, CT of the abdomen and pelvis showed a staghorn calculus in the left renal collecting system with mild to moderate hydronephrosis and surrounding inflammatory change. The patient does have a history of kidney stones although her last one was approximately 10 years ago and she is status post lithotripsy. She denies fever/chills or other systemic symptoms. today is in status post Left Nephrostomy tube by Doctor Sergio and tomorrow will have Lithotripsy by Doctor Cordova. I have been called to admit the patient due to intense pain after procedure, was seen with Nurse and her mother Mrs. Klaudia Mann. 03/04:at this time going for Lithotripsy, no new complaint discussed with nurse Miss Murillo 03/05: Stable in her bedroom, she had procedure yesterday, she has a pigtail left nephrostomy tube placed on 03/03/17, had left nephrostogram, by previous placed Nephrostomy tube, was noted to have a large left staghorn calculus which displaced much of the contrast instilled. wire advanced all the way down to the urinary bladder. With the wire in place the open-ended catheter was withdrawn. The pigtail nephrostomy was then removed without difficulty. not successful in reaching the stone. she will be followed later today he recommended to transfer the patient to [place] will need doctor to Doctor for Urology accepting physician at [place]. No nausea, vomit or diarrhea. 03/06: Seen in her bedroom, stable, no complaint will try to manage her pain with Oral medicines this was discussed with patient and she accepted to try to go home today, was started in am on Dilaudid 4 mg every 3 hours as needed, then as per Doctor Art started on Toradol IM, discussed with nurse and the plan is to continue by mouth medicines supported by Toradol. 03/07: Stable in her room, no further management by Urology specialist while hospitalized, Discussed with Doctor Edd Cordova at this time recommended to discharge on pain medicine, follow with PCP Follow with his office in one week if she did not hear from [facility] to set a follow up by them, no antibiotics at this time. patient without nausea, vomit or diarrhea, had multiple BMs yesterday. Objective Vital Signs Date Time Temp Pulse Resp B/P (MAP) Pulse Ox O2 Delivery O2 Flow Rate FiO2 03/07/17 00:00 97.2 88 17 115/57 (76) 94 03/06/17 20:00 97.8 98 17 122/53 (76) 95 03/06/17 17:29 93 21 03/06/17 16:00 97.3 102 18 133/69 (90) 93 03/06/17 13:30 95 03/06/17 12:00 98.8 108 17 131/72 (91) 92 I/O 03/06/17 03/06/17 03/06/17 03/07/17 03/07/17 03/07/17 06:59 14:59 22:59 06:59 14:59 22:59 Intake Total 1332 ml 1000 ml 480 ml 240 ml Balance 1332 ml 1000 ml 480 ml 240 ml Intake Oral 480 ml 480 ml 240 ml IV Total 852 ml 1000 ml # Voids 3 10 # Bowel Movements 10 Result Diagram: 03/05/17 0645 03/05/17 0645 Imaging Last Impressions Abdomen/Pelvis CT 03/04/17 0000 Signed Impressions: Service Date/Time: Saturday, March 04, 2017 17:30 - CONCLUSION: 1. New bibasilar consolidating airspace disease. 2. Interval development of moderate amount free fluid within the abdomen 3. Edematous left kidney with perinephric stranding and small gas bubbles. Large central staghorn calculus remains evident. Small amount of residual contrast is noted in the collecting system from recent procedure. 4. Satisfactory position of left internal ureteral stent. Nino Glynn MD Ureteral Stent Placement 03/03/17 0000 Signed Impressions: Service Date/Time: Friday, March 03, 2017 00:00 - CONCLUSION: 1. Successful left percutaneous nephrostomy. 2. Limited antegrade pyelogram was performed this demonstrated dilated collecting system. The patient's ureteral stent was in good position. Patrick Hill MD PICC Line Insertion 03/03/17 0000 Signed Impressions: Service Date/Time: Friday, March 03, 2017 09:22 - CONCLUSION: 1. Uncomplicated central venous Power PICC line placement. 2. The PICC line can be used immediately. Patrick Hill MD Procedures status post Nephrostomy tube placed today by IR Doctor Sergio 03/03/17 Attempted Lithotripsy 03/04/17 Other Results Laboratory Tests Test 03/03/17 08:30 03/04/17 03:40 03/05/17 06:45 Prothrombin Time 10.7 SEC Prothromb Time International Ratio 1.1 RATIO Activated Partial Thromboplast Time 22.6 SEC White Blood Count 10.0 TH/MM3 Red Blood Count 2.75 MIL/MM3 Mean Corpuscular Volume 90.8 FL Mean Corpuscular Hemoglobin 28.6 PG Mean Corpuscular Hemoglobin Concent 31.5 % Red Cell Distribution Width 18.3 % Platelet Count 238 TH/MM3 Mean Platelet Volume 8.7 FL Neutrophils (%) (Auto) 76.8 % Lymphocytes (%) (Auto) 14.1 % Monocytes (%) (Auto) 6.8 % Eosinophils (%) (Auto) 2.1 % Basophils (%) (Auto) 0.2 % Neutrophils # (Auto) 7.7 TH/MM3 Lymphocytes # (Auto) 1.4 TH/MM3 Monocytes # (Auto) 0.7 TH/MM3 Eosinophils # (Auto) 0.2 TH/MM3 Basophils # (Auto) 0.0 TH/MM3 CBC Comment DIFF FINAL Differential Comment Hemoglobin 7.6 GM/DL Hematocrit 24.4 % Blood Urea Nitrogen 9 MG/DL Creatinine 0.73 MG/DL Random Glucose 133 MG/DL Calcium Level 8.3 MG/DL Sodium Level 137 MEQ/L Potassium Level 4.2 MEQ/L Chloride Level 103 MEQ/L Carbon Dioxide Level 26.6 MEQ/L Anion Gap 7 MEQ/L Estimat Glomerular Filtration Rate 86 ML/MIN Objective Remarks GENERAL: Morbid obese patient in acute distress after procedure. SKIN: No rashes, ecchymoses or lesions. Cool and dry. HEAD: Atraumatic. Normocephalic. No temporal or scalp tenderness. EYES: Pupils equal round and reactive. Extraocular motions intact. No scleral icterus. No injection or drainage. ENT: Nose without bleeding. NECK: Trachea midline. No JVD or lymphadenopathy. Supple, nontender, no meningeal signs. CARDIOVASCULAR: Regular rate and rhythm without murmurs, gallops, or rubs. RESPIRATORY: Clear to auscultation. Breath sounds equal bilaterally. No wheezes , rales, or rhonchi. GASTROINTESTINAL: Soft but tender on left flank. MUSCULOSKELETAL: Extremities without clubbing, cyanosis, or edema. NEUROLOGICAL: Awake and alert. No focal deficits. Medications and IVs Current Medications Medications (Trade) Dose Ordered Sig/Camilla Route Start Time Stop Time Status Last Admin (NS Flush) DAILY IVF 03/04/17 09:00 (Heparin Central Flush) DAILY IV FLUSH 03/04/17 09:00 03/07/17 09:15 (NS Flush) UNSCH PRN IVF 03/03/17 10:15 (Heparin Central Flush) UNSCH PRN IV FLUSH 03/03/17 10:15 (NS Flush) UNSCH PRN IVF 03/03/17 10:15 (NovoLOG SUPPLEMENTAL SCALE) 1 ACHS SLIDING SCALE SQ 03/03/17 17:00 (NS Flush) 2 ml UNSCH PRN IV FLUSH 03/03/17 15:15 (NS Flush) 2 ml BID IV FLUSH 03/03/17 21:00 03/07/17 09:15 (Tylenol) 650 mg Q4H PRN PO 03/03/17 15:15 03/05/17 20:25 (Narcan Inj) 0.4 mg UNSCH PRN IV PUSH 03/03/17 15:15 (Milk Of Magnesia Liq) 30 ml Q12H PRN PO 03/03/17 15:15 03/06/17 09:10 (Dulcolax Supp) 10 mg DAILY PRN RECTAL 03/03/17 15:15 (D50w (Vial) Inj) 50 ml UNSCH PRN IV PUSH 03/03/17 15:15 (Glucagon Inj) 1 mg UNSCH PRN OTHER 03/03/17 15:15 Lactated Ringer's 1,000 ml @ 30 mls/hr Q24H PRN IV 03/04/17 11:00 03/07/17 10:59 Sodium Chloride 500 ml @ 30 mls/hr [id number] PRN IV 03/04/17 11:00 03/07/17 10:59 (Lopressor) 25 mg DERMATOLOGY TEACHER PRN PO 03/04/17 11:00 03/07/17 10:59 (Betadine 5% Antisepsis Kit) 1 applic DERMATOLOGY TEACHER PRN EACH NARE 03/04/17 11:00 03/07/17 10:59 (Chlorhexidine 2% Cloth) 3 pack DERMATOLOGY TEACHER PRN TOPICAL 03/04/17 11:00 03/07/17 10:59 (Zofran Inj) 4 mg Q6H PRN IV PUSH 03/04/17 17:00 Iron Sucrose 100 mg/Sodium Chloride 105 ml @ 105 mls/hr DAILY IV 03/05/17 13:00 03/07/17 09:59 03/07/17 09:14 (Dilaudid) 4 mg Q3HR PRN PO 03/06/17 09:45 03/07/17 08:02 (Toradol Inj) 30 mg Q8H IM 03/06/17 14:00 03/11/17 13:59 03/07/17 06:21 (Zantac Liq) 150 mg Q12HR PO 03/06/17 14:00 03/06/17 20:12 A/P Assessment and Plan 1. Staghorn calculus, CT showed hydronephrosis status post Nephrostomy tube placed today by IR Doctor Hill attempted Lithotripsy yesterday and was not successful, arrangements as outpatient will be done by doctor Cordova for follow up at [facility], at this time okay to discharge if pain controlled with Pain medicines. Discussed with Doctor Edd Cordova at this time recommended to discharge on pain medicine, follow with PCP Follow with his office in one week if she did not hear from [facility] to set a follow up by them, no antibiotics at this time. 2. DM II on Hold Metformin, will continue SSI. Hemoglobin A1C 6 continue at discharge her home medicines. 3. Morbid obesity strongly recommended diet and exercise as outpatient 4. Iron deficiency anemia on Iron Hemoglobin 7.6 asymptomatic following. 5. Constipation improved. FEN Diabetic diet Remove IV fluids Remove Dilaudid IV and continue by mouth. SCDs Code Status Full code. Discussed Condition With patient and nurse Miss Gordon I had the pleasure to talk about this case with Urology Specialist Doctor Edd Cordova his input and recommendations for discharge were highly appreciated. Discharge Planning Discharge Home now Tom De MD Mar 07, 2017 9:45 am
[2017-03-07] MEDS ORDERED: PERC10TA27 PO (09:48)
--- NOTE | 2017-03-07 09:50 | HHI.DS ---
Discharge Summary Admission Date Mar 06, 2017 at 08:23 Discharge Date: Mar 07, 2017 Admitting Diagnosis (1) Diabetes ICD Code: E11.9 - Type 2 diabetes mellitus without complications Diagnosis: Secondary (2) Hydronephrosis ICD Code: N13.30 - Unspecified hydronephrosis Diagnosis: Principal (3) Staghorn calculus ICD Code: N20.0 - Calculus of kidney Diagnosis: Principal Procedures status post Nephrostomy tube placed today by IR Doctor Sergio 03/03/17 Attempted Lithotripsy 03/04/17 Brief History - From Admission This is a pleasant 46 y/o Male with DM II, who has Diagnosis UTI and Left staghorn calculus, he was seen back in ER due to Left sided abdominal pain, found with Hematuria, CT of the abdomen and pelvis showed a staghorn calculus in the left renal collecting system with mild to moderate hydronephrosis and surrounding inflammatory change. The patient does have a history of kidney stones although her last one was approximately 10 years ago and she is status post lithotripsy. She denies fever/chills or other systemic symptoms. today is in status post Left Nephrostomy tube by Doctor Hill and tomorrow will have Lithotripsy by Doctor Cordova. I have been called to admit the patient due to intense pain after procedure, was seen with Nurse and her mother Mrs. Klaudia Mann. CBC/BMP: 03/05/17 0645 03/05/17 0645 Significant Findings Laboratory Tests Test 03/05/17 06:45 Hemoglobin 7.6 GM/DL (11.6-15.3) Hematocrit 24.4 % (35.0-46.0) Random Glucose 133 MG/DL (74-106) Calcium Level 8.3 MG/DL (8.5-10.1) Estimat Glomerular Filtration Rate 86 ML/MIN (>89) Imaging Last Impressions Abdomen/Pelvis CT 03/04/17 0000 Signed Impressions: Service Date/Time: Saturday, March 04, 2017 17:30 - CONCLUSION: 1. New bibasilar consolidating airspace disease. 2. Interval development of moderate amount free fluid within the abdomen 3. Edematous left kidney with perinephric stranding and small gas bubbles. Large central staghorn calculus remains evident. Small amount of residual contrast is noted in the collecting system from recent procedure. 4. Satisfactory position of left internal ureteral stent. Nino Glynn MD Ureteral Stent Placement 03/03/17 0000 Signed Impressions: Service Date/Time: Friday, March 03, 2017 00:00 - CONCLUSION: 1. Successful left percutaneous nephrostomy. 2. Limited antegrade pyelogram was performed this demonstrated dilated collecting system. The patient's ureteral stent was in good position. Patrick Hill MD PICC Line Insertion 03/03/17 0000 Signed Impressions: Service Date/Time: Friday, March 03, 2017 09:22 - CONCLUSION: 1. Uncomplicated central venous Power PICC line placement. 2. The PICC line can be used immediately. Patrick Hill MD PE at Discharge GENERAL: Morbid obese patient in acute distress after procedure. SKIN: No rashes, ecchymoses or lesions. Cool and dry. HEAD: Atraumatic. Normocephalic. No temporal or scalp tenderness. EYES: Pupils equal round and reactive. Extraocular motions intact. No scleral icterus. No injection or drainage. ENT: Nose without bleeding. NECK: Trachea midline. No JVD or lymphadenopathy. Supple, nontender, no meningeal signs. CARDIOVASCULAR: Regular rate and rhythm without murmurs, gallops, or rubs. RESPIRATORY: Clear to auscultation. Breath sounds equal bilaterally. No wheezes , rales, or rhonchi. GASTROINTESTINAL: Soft but tender on left flank. MUSCULOSKELETAL: Extremities without clubbing, cyanosis, or edema. NEUROLOGICAL: Awake and alert. No focal deficits. Hospital Course This is a pleasant 46 y/o Male with DM II, who has Diagnosis UTI and Left staghorn calculus, he was seen back in ER due to Left sided abdominal pain, found with Hematuria, CT of the abdomen and pelvis showed a staghorn calculus in the left renal collecting system with mild to moderate hydronephrosis and surrounding inflammatory change. The patient does have a history of kidney stones although her last one was approximately 10 years ago and she is status post lithotripsy. She denies fever/chills or other systemic symptoms. today is in status post Left Nephrostomy tube by Doctor Sergio and tomorrow will have Lithotripsy by Doctor Cordova. I have been called to admit the patient due to intense pain after procedure, was seen with Nurse and her mother Mrs. Klaudia Mann. 03/04:at this time going for Lithotripsy, no new complaint discussed with nurse Miss Murillo 03/05: Stable in her bedroom, she had procedure yesterday, she has a pigtail left nephrostomy tube placed on 03/03/17, had left nephrostogram, by previous placed Nephrostomy tube, was noted to have a large left staghorn calculus which displaced much of the contrast instilled. wire advanced all the way down to the urinary bladder. With the wire in place the open-ended catheter was withdrawn. The pigtail nephrostomy was then removed without difficulty. not successful in reaching the stone. she will be followed later today he recommended to transfer the patient to [place] will need doctor to Doctor for Urology accepting physician at [place]. No nausea, vomit or diarrhea. 03/06: Seen in her bedroom, stable, no complaint will try to manage her pain with Oral medicines this was discussed with patient and she accepted to try to go home today, was started in am on Dilaudid 4 mg every 3 hours as needed, then as per Doctor Cordova started on Toradol IM, discussed with nurse and the plan is to continue by mouth medicines supported by Toradol. 03/07: Stable in her room, no further management by Urology specialist while hospitalized, Discussed with Doctor Edd Cordova at this time recommended to discharge on pain medicine, follow with PCP Follow with his office in one week if she did not hear from [facility] to set a follow up by them, no antibiotics at this time. patient without nausea, vomit or diarrhea, had multiple BMs yesterday. Assessment and Plan 1. Staghorn calculus, CT showed hydronephrosis status post Nephrostomy tube placed today by IR Doctor Hill attempted Lithotripsy yesterday and was not successful, arrangements as outpatient will be done by doctor Cordova for follow up at [facility], at this time okay to discharge if pain controlled with Pain medicines. Discussed with Doctor Edd Cordova at this time recommended to discharge on pain medicine, follow with PCP Follow with his office in one week if she did not hear from [facility] to set a follow up by them, no antibiotics at this time. 2. DM II on Hold Metformin, will continue SSI. Hemoglobin A1C 6 continue at discharge her home medicines. 3. Morbid obesity strongly recommended diet and exercise as outpatient 4. Iron deficiency anemia on Iron Hemoglobin 7.6 asymptomatic following. 5. Constipation improved. FEN Diabetic diet Remove IV fluids Remove Dilaudid IV and continue by mouth. SCDs Code Status Full code. Discussed Condition With patient and nurse Miss Gordon I had the pleasure to talk about this case with Urology Specialist Doctor Edd Cordova his input and recommendations for discharge were highly appreciated. Discharge Planning Discharge Home now Pt Condition on Discharge: Good Discharge Disposition: Discharge Home Discharge Time: > 30 minutes Discharge Instructions DIET: Follow Instructions for: Diabetic Diet Activities you can perform: Regular-No Restrictions Tom De MD Mar 07, 2017 09:50
[2017-03-07 12:00] VITALS: BP 122/73; PULSE 69; RESP 16; TEMP 97.8; O2SAT 94
[2017-03-07 12:08] VITALS: RESP 16
== END 2017-03-07 13:59 | disposition home or self-care (01) | DRG 694 ==
LOC: HROP 06:35 → HRIP 06:37 → HROP 17:40 → N07A 17:41 → OBSVTOIN 03-06 08:23
PROVIDERS: ADMIT Internal Medicine; ATTEND Internal Medicine
PROC: 0T9130Z Drainage of Left Kidney with Drainage Device, Percutaneous Approach (ICD-10-PCS; principal; 2017-03-03)
PROC: 0T778DZ Dilation of Left Ureter with Intraluminal Device, Via Natural or Artificial Opening Endoscopic (ICD-10-PCS; 2017-03-03)
PROC: BT1F1ZZ Fluoroscopy of Left Kidney, Ureter and Bladder using Low Osmolar Contrast (ICD-10-PCS; 2017-03-03)
PROC: 02HV33Z Insertion of Infusion Device into Superior Vena Cava, Percutaneous Approach (ICD-10-PCS; 2017-03-03)
PROC: B548ZZA Ultrasonography of Superior Vena Cava, Guidance (ICD-10-PCS; 2017-03-03)
PROC: B518ZZA Fluoroscopy of Superior Vena Cava, Guidance (ICD-10-PCS; 2017-03-03)
PROC: 0TP5X0Z Removal of Drainage Device from Kidney, External Approach (ICD-10-PCS; 2017-03-04)
PROC: 0TJ58ZZ Inspection of Kidney, Via Natural or Artificial Opening Endoscopic (ICD-10-PCS; 2017-03-04)
PROC: BT0 Imaging, Urinary System, Plain Radiography (ICD-10-PCS; 2017-03-04)
DX: N13.2 Hydronephrosis with renal and ureteral calculous obstruction (principal); Z68.42 Body mass index [BMI] 45.0-49.9, adult; N39.0 Urinary tract infection, site not specified; E11.9 Type 2 diabetes mellitus without complications; D50.9 Iron deficiency anemia, unspecified; K59.00 Constipation, unspecified; E66.01 Morbid (severe) obesity due to excess calories; Z79.84 Long term (current) use of oral hypoglycemic drugs; Z87.442 Personal history of urinary calculi
CPT/HCPCS: 36415; 36430; 36569; 50695; 74177; 76937; 77001; 80048; 82948; 85014; 85018; 85025; 85610; 85730; 86850; 86900; 86901; 86920; 86921; 86922; 94664; 99152; 99153; C1729; C1751; C1769; C1887; J0131; J0690; J1170; J1642; J1756; J1885; J1956; J2060; J2250; J2270; J3010; J7030; J7613; P9016; Q9967

== ENCOUNTER 2017-03-14 16:43 | Emergency (ER) | payer OTHER ==
[~2017-03-14 16:43] MED LIST changes: -CEPH-460 PO; -LORA-392 PO; +PERC10TA27 PO; -PERC5TAB12 PO
[2017-03-14 16:44] VITALS: BP 122/78; PULSE 144; RESP 32; TEMP 98; O2SAT 96
--- NOTE | 2017-03-14 16:58 | PD ---
Physical Exam Narrative I, Dr. Centeno, have reviewed the advance practice practitioner's documentation and am in agreement, met with the patient face to face, made the diagnosis, and the medical decision making was done by me. *My assessment and Findings: Patient is a 46 year old female who comes to the ED for possible allergic reaction. She says she took a Bactrim for a UTI and 30 minutes later developed hives. She says she has had hives on and off for the past 4-5 days. She says she feels like her throat is tight. Exam shows no pharyngeal swelling or edema. No swelling of the tongue or lips. Lungs are CTA. Skin is red with urticaria. Data Data Last Documented VS Vital Signs Date Time Temp Pulse Resp B/P (MAP) Pulse Ox O2 Delivery O2 Flow Rate FiO2 03/14/17 20:23 104 20 139/80 (99) 100 Room Air 03/14/17 16:44 98.0 Orders Orders Diphenhydramine Inj (Benadryl Inj) (03/14/17 17:00) Methylprednisolone So Succ Inj (Solumedr (03/14/17 17:00) Ed Discharge Order (03/14/17 19:58) MDM Supervised Visit with CATY: Yes Narrative Course Patient is very anxious, but airway is patent. Patient given Benadryl and solumedrol She is observed in the ED with improvement of her symptoms. Advised to follow up with her doctors. It is unclear if this is related to the Bactrim as she has had the hives on and off for 4 days prior. Advised to return at any time for any worsening symptoms. Diagnosis Primary Impression: Allergic reaction Qualified Codes: T78.40XA - Allergy, unspecified, initial encounter Scripts Ciprofloxacin (Cipro) 250 Mg Tab 250 MG PO BID for Infection for 3 Days, #6 TAB 0 Refills Prov: Sandi Jimenes 03/14/17 Epinephrine Inj (Epipen 2-Ranjan Inj) 0.3 Mg/0.3 Ml Pfpen 0.3 MG IM ONCE Y for ALLERGIC REACTION, #1 PACK 0 Refills Prov: Sandi Jimenes 03/14/17 Sandi Centeno MD Mar 14, 2017 16:58
[2017-03-14] MEDS ORDERED: diphenhydrAMINE HCL 50 MG/ML VIAL IV PUSH ONE (17:00)
[2017-03-14] MEDS ORDERED: methylPREDNISolone SOD SUCC 125 MG/2 ML VIAL IV PUSH ONE (17:00)
--- NOTE | 2017-03-14 17:28 | PD ---
HPI Chief Complaint: Allergic/Adverse Reaction Time Seen by Provider: 16:56 Travel History International Travel<30 days: No Contact w/Intl Traveler<30days: No Traveled to known affect area: No History of Present Illness HPI 46 year old female presents to the emergency department for evaluation of allergic reaction with hives, shortness of breath and feeling of throat tightness. Patient was treated today for UTI with a prescription for Bactrim. Patient took her first dose of Bactrim and started having difficulty breathing and became flushed with hives within 10 mins. Patient took OTC Benadryl and came straight to our facility immediately for evaluation. Upon arrival patient was noted to be anxious and feeling short of breath but breathing without stridor or wheezing. Throat show no signs of swelling or edema. Patient denies any chest pain, nausea, vomiting, diarrhea, abdominal pain. Patient has no known allergies prior to this event. Patient is undergoing extensive urologic workup due to a persistent nephrolithiasis the left kidney. Dr. Cordova has performed to lithotripsies to remove the kidney stone in the left kidney. The kidney stone is so severe it is compromising renal function and the patient is at risk to lose the left kidney. Dr. Cordova has been unsuccessful to remove the stone and after the second attempt has referred the patient to [place]. Patient is to follow-up with [place] later this month for surgery to remove the kidney stone and possibly the kidney itself. PFSH Past Medical History Anemia: Yes Arthritis: No Asthma: No Autoimmune Disease: No Blood Disorders: No Heart Rhythm Problems: No Cancer: No Cardiovascular Problems: No High Cholesterol: No Chemotherapy: No Chest Pain: No Congestive Heart Failure: No COPD: No Cerebrovascular Accident: No Diabetes: Yes Patient Takes Glucophage: Yes (METFORMIN 1000MG @ AM) Diminished Hearing: No Diverticulitis: Yes (recently diag) Endocrine: No Gastrointestinal Disorders: Yes GERD: Yes Genitourinary: Yes (multiple utis) Hepatitis: No Hiatal Hernia: No Hypertension: Yes Immune Disorder: No Kidney Stones: Yes Musculoskeletal: No Neurologic: No Psychiatric: No Reproductive: No Respiratory: No Immunizations Current: Yes Migraines: Yes (occassional) Radiation Therapy: No Renal Failure: No Seizures: No Sleep Apnea: Yes Thyroid Disease: No Ulcer: No Tetanus Vaccination: > 5 Years Influenza Vaccination: No ?: Not : 2 Para: 2 Past Surgical History Abdominal Surgery: Yes (gallbladder removal) AICD: No Body Medical Devices: L NEP TUBE Cardiac Surgery: No Cholecystectomy: Yes (03/31) Ear Surgery: No Endocrine Surgery: No Eye Surgery: No Genitourinary Surgery: No Gynecologic Surgery: Yes (ablation) Joint Replacement: No Oral Surgery: No Pacemaker: No Thoracic Surgery: No Tonsillectomy: Yes Other Surgery: Yes (gallbladder) Social History Alcohol Use: No Tobacco Use: Yes (1/2PACK A WEEK) Substance Use: No Allergies-Medications (Allergen,Severity, Reaction): Coded Allergies: No Known Allergies (Verified Allergy, Severe, 02/18/17) sulfamethoxazole (Unverified Allergy, Mild, 03/14/17) TOOK 30 MIN MASTER IN CHANCERY FOR ALLERGHIC RXN trimethoprim (Unverified Allergy, Mild, 03/14/17) TOOK 30 MIN MASTER IN CHANCERY FOR ALLERGHIC RXN Reported Meds & Prescriptions Reported Meds & Active Scripts Active Cipro (Ciprofloxacin HCl) 250 Mg Tab 250 Mg PO BID 3 Days Epipen 2-Ranjan Inj (Epinephrine) 0.3 Mg/0.3 Ml Pfpen 0.3 Mg IM ONCE PRN Percocet (Oxycodone-Acetaminophen) 10-325 mg Tab 1 Tab PO Q6HR PRN do not use this medicine if you will drive a car or use a machine, only use it when resting at home. Prilosec (Omeprazole Magnesium) 20 Mg Tab 20 Mg PO DAILY Metformin (Metformin HCl) 1,000 Mg Tab 1,000 Mg PO BID With a meal Reported Iron (Ferrous Sulfate) 18 Mg Tab 1,000 Mg PO BID Review of Systems Except as stated in HPI: all other systems reviewed are Neg Physical Exam Narrative GENERAL: Well-nourished, well-developed 46 year old morbidly obese patient that is anxious and feels short of breath. No stridor, wheezing or cyanosis noted. SKIN: Focused skin assessment flushed with generalized hives. Small serosanguineous draining incision noted to the left flank region from the previous lithotripsy. No erythema or purulent drainage noted. HEAD: Normocephalic. Atraumatic. EYES: No scleral icterus. No injection or drainage. THROAT: No pharyngeal injection, exudates, or tonsillar hypertrophy. Airway is patent. NECK: Supple, trachea midline. No JVD or lymphadenopathy. CARDIOVASCULAR: Regular rate and rhythm without murmurs, gallops, or rubs. RESPIRATORY: Breath sounds clear to auscultation with no wheezing, rales or rhonchi. Breath sounds equal bilaterally. No accessory muscle use. GASTROINTESTINAL: Abdomen soft, non-tender, nondistended. MUSCULOSKELETAL: No cyanosis, or edema. BACK: Nontender without obvious deformity. Left sided CVA tenderness. Data Data Last Documented VS Vital Signs Date Time Temp Pulse Resp B/P (MAP) Pulse Ox O2 Delivery O2 Flow Rate FiO2 03/14/17 20:23 104 20 139/80 (99) 100 Room Air 03/14/17 16:44 98.0 Orders Orders Diphenhydramine Inj (Benadryl Inj) (03/14/17 17:00) Methylprednisolone So Succ Inj (Solumedr (03/14/17 17:00) Ed Discharge Order (03/14/17 19:58) MDM Medical Decision Making Medical Screen Exam Complete: Yes Emergency Medical Condition: Yes Differential Diagnosis Differential diagnosis include but not limited to allergic reaction, urticaria, shortness of breath, anaphylaxis Narrative Course Patient was feeling very short of breath upon arrival but noted to be breathing without stridor, wheezing. Patient was flushed with generalized hives. OTC 50mg Benadryl already taken prior to arrival. Pulse ox was noted to be 98% on room air. Patient was given IM injection of Benadryl and Solu-Medrol. Upon reassessment approximately one hour later patient stated she had no trouble breathing and felt tremendous a better. It was noted that the flushing and hives were nearly resolved. Patient requests another antibiotic for her urinary tract infection. Patient case discussed with my attending Dr Centeno and it was recommended to discharge the patient home with Cipro. Patient is discharged home at this time with instructions to follow-up with her home staging specialist and primary care. Patient given a prescription for EpiPen to carry with her in treat if an allergic reaction to occur again. Patient skin warm and dry, she was conversing fluently and smiling with no feeling of shortness of breath upon discharge. Patient discharged home at this time. Diagnosis Primary Impression: Allergic reaction Qualified Codes: T78.40XA - Allergy, unspecified, initial encounter Referrals: [employer] Clerk Primary Care Physician Patient Instructions: General Allergic Reaction (ED), General Instructions Additional Instructions: Please return to emergency department if your symptoms return or worsen. Follow up with your primary care provider. Follow-up in home staging specialist. Take medications as prescribed. Stay hydrated. If you need to use EpiPen for allergic reaction report to the emergency department immediately for further evaluation. Med/Other Pt SpecificInfo: Prescription(s) given Scripts Ciprofloxacin (Cipro) 250 Mg Tab 250 MG PO BID for Infection for 3 Days, #6 TAB 0 Refills Prov: Sandi Jimenes 03/14/17 Epinephrine Inj (Epipen 2-Ranjan Inj) 0.3 Mg/0.3 Ml Pfpen 0.3 MG IM ONCE Y for ALLERGIC REACTION, #1 PACK 0 Refills Prov: Sandi Jimenes 03/14/17 Disposition: 01 DISCHARGE HOME Condition: Stable Sandi Jimenes Mar 14, 2017 17:28
[2017-03-14] MEDS ORDERED: EPIP0.3I IM (19:45)
[2017-03-14] MEDS ORDERED: CIPR250T52 PO (19:45)
[2017-03-14 20:23] VITALS: BP 139/80; PULSE 104; RESP 20; O2SAT 100
== END 2017-03-14 20:25 | disposition home or self-care (01) ==
LOC: NEPC 16:43
DX: L50.0 Allergic urticaria (principal); T37.0X5A Adverse effect of sulfonamides, initial encounter
CPT/HCPCS: 96374; 96375; 99284; J1200; J2930